=== PATIENT | female | born 1965 | race Caucasian/White ===

== ENCOUNTER 2019-06-30 11:07 | Emergency (ER) | payer OTHER, SELFPAY ==
[2019-06-30 11:18] VITALS: BP 126/93; PULSE 80; RESP 20; TEMP 36.4; O2SAT 99
--- NOTE | 2019-06-30 11:44 | ED.URI ---
HPI - URI/Sore Throat General Chief Complaint: Upper Respiratory Infection Stated Complaint: Cough Source: patient and RN notes reviewed Mode of arrival: ambulatory Limitations: no limitations History of Present Illness HPI Narrative: The patient, non-smoker/nondrinker, presents with nearly 1 week history of cough, myalgias, hoarseness associated with fever to 101. Symptoms are mild, unrelieved with OTC cough medicine. No foreign travel, sore throat, calf pain/edema, precordial chest pain Related Data Home Medications Medication Instructions Recorded Confirmed glucosamine sulfate 500 mg tablet 500 mg PO BID 03/19/19 06/30/19 lisinopril 20 1 tablet PO DAILY 03/19/19 06/30/19 mg-hydrochlorothiazide 12.5 mg tablet Allergies Allergy/AdvReac Type Severity Reaction Status Date / Time No Known Drug Allergies Allergy Unknown NONE Verified 03/19/19 14:50 Review of Systems Review of Systems: Narrative: General/Constitutional: No weight loss, REPORTS fever Eyes: N0: Redness,discharge Ears/Nose/Throat: No: Epistaxis,ear discharge Respiratory: Denies: Hemoptysis Gastrointestinal: No Vomiting, Bleeding-rectal Skin: No Lumps, eruption Neurologic: No Focal Weakness,Sz Hematologic: Denies: Petechiae/Purpura Psychiatric: No: Suicida ideationl All Other Systems: Reviewed and Negative [facility] Social History Social History Smoking status: Never smoker Second hand tobacco smoke exposure: No Alcohol intake: current Gender identity (if verbalized by the patient): Female Comments At time of signature, agree with nursing past medical, surgical, social and family history. There is no relevant family history pertinent to the presenting complaint Course Vital Signs Vital signs: Vital Signs Temperature 97.6 F 06/30/19 11:18 Pulse Rate 80 06/30/19 11:18 Respiratory Rate 20 06/30/19 11:18 Blood Pressure 126/93 H 06/30/19 11:18 Pulse Oximetry 99 06/30/19 11:18 Temperature 97.6 F 06/30/19 11:18 Pulse Rate 80 06/30/19 11:18 Respiratory Rate 20 06/30/19 11:18 Blood Pressure 126/93 H 06/30/19 11:18 Pulse Oximetry 99 03/14/20 11:18 Discharge Plan Discharge Clinical Impression: Upper respiratory infection Patient Disposition: Home, Self-Care Condition: Stable Instructions: Antibiotic Form, Acute Bronchitis (ED) Prescriptions: New benzonatate [Tessalon Perles] 100 mg capsule 100 mg PO TID Qty: 20 RF: 1 codeine-guaifenesin 10-100 mg/5 mL liquid 7.5 ml PO Q6H PRN (Reason: cough) Qty: 118 RF: 0 cefuroxime axetil 500 mg tablet 500 mg PO Q12H Qty: 14 RF: 0 albuterol sulfate [Ventolin HFA] 90 mcg/actuation HFA aerosol inhaler 2 puff INHALATION QID PRN (Reason: shortness of breath or wheezing) Qty: 1 RF: 1 codeine-guaifenesin 10-100 mg/5 mL liquid 7.5 ml PO Q6H PRN (Reason: cough) Qty: 118 RF: 0 No Action glucosamine sulfate [Glucosamine] 500 mg tablet 500 mg PO BID RF: 0 lisinopril-hydrochlorothiazide 20-12.5 mg tablet 1 tablet PO DAILY RF: 0 estradiol 1 mg tablet 1 mg PO DAILY Qty: 90 RF: 3 tramadol 50 mg tablet 50 mg PO Q6H PRN (Reason: pain) Qty: 60 RF: 0 Follow-up/Referrals: Yancy Lima MD [Primary Care Provider] -
== END 2019-06-30 11:47 | disposition home or self-care (01) ==
PROVIDERS: Emergency Provider Emergency Medicine; PCP Family Medicine
DX: J06.9 Acute upper respiratory infection, unspecified (principal); I10 Essential (primary) hypertension
CPT/HCPCS: 99213; G0463

== ENCOUNTER 2020-03-05 08:19 | Outpatient (NON) | payer OTHER, SELFPAY ==
[2020-03-05 23:47] LABS: SARS-CoV-2 RNA PCR Positive
== END 2020-03-05 08:20 ==
LOC: ANHCOVIDDT 08:20
PROVIDERS: PCP Family Medicine; Visit Provider Family Medicine
DX: U07.1 COVID-19 (principal)
CPT/HCPCS: 87635; C9803; U0003

== ENCOUNTER 2020-03-24 09:37 | Outpatient (CLI) | payer OTHER, SELFPAY ==
--- NOTE | ~2020-03-24 | MM_ITS ---
EXAMINATION: MM screening [facility] BI w liana HISTORY: Screening TECHNIQUE: Craniocaudal and mediolateral oblique 3-D tomosynthesis images were obtained and synthetic 2-D images were generated. CAD analysis was submitted and interpreted. COMPARISON: Comparison to multiple prior studies sequentially, with oldest reviewed study dated 08/25. BREAST PARENCHYMAL COMPOSITION: There are scattered areas of fibroglandular density. FINDINGS: There is no evidence of suspicious mass, calcification, or architectural distortion to sugg est malignancy in either breast. There has been no suspicious interval change. IMPRESSION: 1. No mammographic evidence of malignancy. 2. Recommend routine screening mammography in one year. BI-RADS Category 1: Negative Reviewed, dictated and finalized at location A. [employer]
== END 2020-03-24 09:38 | disposition home or self-care (01) ==
LOC: ANHIMG 09:38
PROVIDERS: PCP Family Medicine; Visit Provider Obstetrics & Gynecology
DX: Z12.31 Encounter for screening mammogram for malignant neoplasm of breast (principal)
CPT/HCPCS: 77063; 77067

== ENCOUNTER 2021-05-13 15:38 | Outpatient (CLI) | payer OTHER, SELFPAY ==
--- NOTE | ~2021-05-13 | MM_ITS ---
EXAMINATION: MM screening [facility] BI w liana HISTORY: Screening mammogram TECHNIQUE: Craniocaudal and mediolateral oblique 3-D tomosynthesis images were obtained and synthetic 2-D images were generated. CAD analysis was submitted and interpreted. COMPARISON: 03/24/2020, 06/30/2018, 05/20/2014, 10/22/2013, 10/15/2013 BREAST PARENCHYMAL COMPOSITION: There are scattered areas of fibroglandular density. FINDINGS: There is no evidence of suspicious mass, calcification, or architectural distortion to sugg est malignancy in either breast. There has been no suspicious interval change. IMPRESSION: 1. No mammographic evidence of malignancy. 2. Recommend routine screening mammography in one year. BI-RADS Category 1: Negative Reviewed, dictated and finalized at location A. GRINDER
== END 2021-05-13 15:39 | disposition home or self-care (01) ==
PROVIDERS: PCP Family Medicine; Visit Provider Obstetrics & Gynecology
DX: Z12.31 Encounter for screening mammogram for malignant neoplasm of breast (principal)
CPT/HCPCS: 77063; 77067

== ENCOUNTER 2022-06-19 15:30 | Emergency (ER) | payer OTHER, SELFPAY ==
[2022-06-19 15:37] VITALS: BP 109/53; PULSE 70; RESP 16; TEMP 36.1; O2SAT 99
--- NOTE | 2022-06-19 15:40 | ED.URI ---
HPI - URI/Sore Throat General Chief Complaint: Upper Respiratory Infection Stated Complaint: + covid test/congestion/cough Time Seen by Provider: 06/19/22 15:43 Source: patient and RN notes reviewed Mode of arrival: ambulatory Limitations: no limitations History of Present Illness HPI Narrative: 56-year-old female presents concern for increasing cough, sinus congestion, dias colored drainage after testing positive for COVID 1 week ago. She reports she has tried allergy medicine without relief, she can take much [id number] medicine due to her high blood pressure. She reports sick BS sputum that is dias in color. She reports fatigue. Reports she has not had fever, chills, sweats, body aches since the beginning of her illness. MD elicited complaint: cough and nasal congestion Related Data Home Medications Medication Instructions Recorded Confirmed glucosamine sulfate 500 mg tablet 1,000 mg PO DAILY 11/03/20 06/19/22 (Glucosamine) psyllium husk 0.4 gram capsule 0.4 g PO DAILY 11/03/20 12/15/21 (Daily Fiber) Allergies Allergy/AdvReac Type Severity Reaction Status Date / Time No Known Drug Allergies Allergy Unknown NONE Verified 06/19/22 15:39 Review of Systems Review of Systems: CONSTITUTIONAL: Denies malaise, chills, sweats, or fever. EYES: Denies visual changes, redness, or discharge. ENT: Reports rhinorrhea, congestion, sinus pain, and sore throat. CARDIOVASCULAR: Denies chest pain, palpitations, or edema. RESPIRATORY: Reports productive cough, chest congestion. Denies dyspnea. GASTROINTESTINAL: Denies abdominal pain, nausea, vomiting, diarrhea SKIN: Denies rash or itching. MUSCULOSKELETAL: Denies myalgia. NEUROLOGIC: Denies headache. All systems reviewed & are unremarkable except as noted in HPI and below PMFSH Past Medical History Medical History Atrophic vaginitis Uterine fibroid Surgical History Surgical History H/O vaginal hysterectomy History of carpal tunnel surgery History of cholecystectomy History of tubal ligation Previous section x 2 S/P eye surgery Family History Family History Father Hypertension Cerebrovascular accident Family history of diabetes mellitus in first degree relative Diabetes mellitus Mother Carcinoma of colon Family history of heart disease in male family member before age 55 Social History Social History Smoking status: Never smoker Second hand tobacco smoke exposure: No Alcohol intake: current Substance use: unknown Gender identity (if verbalized by the patient): Female Comments At time of signature, agree with nursing past medical, surgical, social and family history. There is no relevant family history pertinent to the presenting complaint Exam Narrative: GENERAL: Well-appearing, well-nourished, and in no acute distress. HEAD: Normocephalic EYES: PERRLA, conjunctivae clear ENT: Nares clear, turbinates edematous and erythematous, green discharge. Mucous membranes moist. TM pearly dias with dull light reflex bilaterally; no tragal tenderness. Oropharynx not erythematous without lesions. Tonsils not enlarged and without exudate, no drooling, no trismus, uvula midline. Slightly hoarse voice NECK: Supple. No lymphadenopathy CHEST: Clear to auscultation, breath sounds equal. No wheezing, rhonchi, rales, or stridor. No respiratory distress, speaks in full sentences. Cough noted HEART: Regular rate and rhythm. No murmur heard. SKIN: Warm, dry, no rash. NEURO: Alert and oriented x3. PSYCH: Normal mood and affect Course Course Emergency Course: Patient is aware of diagnosis, understands and agrees to treatment plan. Anticipatory guidance given. Patient agrees to follow-up as directed and is aware of reasons
== END 2022-06-19 15:55 | disposition home or self-care (01) ==
PROVIDERS: Emergency Provider Nurse Practitioner; PCP Emergency Medicine
DX: J32.9 Chronic sinusitis, unspecified (principal); J40 Bronchitis, not specified as acute or chronic; Z86.16 Personal history of COVID-19
CPT/HCPCS: 99213; G0463

== ENCOUNTER 2022-07-26 15:39 | Outpatient (CLI) | payer OTHER, SELFPAY ==
--- NOTE | ~2022-07-26 | MM_ITS ---
EXAMINATION: MM screening [facility] BI w liana HISTORY: Screening mammogram TECHNIQUE: Craniocaudal and mediolateral oblique 3-D tomosynthesis images were obtained and synthetic 2-D images were generated. CAD analysis was submitted and interpreted. COMPARISON: 05/13/2021, 03/24/2020, 06/30/2018 bilateral screening mammogram examinations BREAST PARENCHYMAL COMPOSITION: There are scattered areas of fibroglandular density. FINDINGS: There is no evidence of suspicious mass, calcification, or architectural distortion to sugg est malignancy in either breast. There has been no suspicious interval change. IMPRESSION: 1. No mammographic evidence of malignancy. 2. Recommend routine screening mammography in one year. BI-RADS Category 1: Negative Reviewed, dictated and finalized at location A.
== END 2022-07-26 15:40 | disposition home or self-care (01) ==
LOC: ANHIMG 15:41
PROVIDERS: PCP Emergency Medicine; Visit Provider Obstetrics & Gynecology
DX: Z12.31 Encounter for screening mammogram for malignant neoplasm of breast (principal)
CPT/HCPCS: 77063; 77067

== ENCOUNTER 2023-04-02 08:46 | Emergency (ER) | payer OTHER, SELFPAY ==
--- NOTE | 2023-04-02 08:49 | ED.URI ---
HPI - URI/Sore Throat General Chief Complaint: Upper Respiratory Infection Stated Complaint: Sinus Infection symptoms; Body aches Time Seen by Provider: 04/02/23 10:01 Source: patient, RN notes reviewed and old records reviewed Mode of arrival: ambulatory Limitations: no limitations History of Present Illness HPI Narrative: 57-year-old female presents to the [facility] with sinus pain, pressure that has been worsening over the last month. Denies fevers. Has tried multiple [id number] products with no relief. States about a week ago she started with coughing and feel like she is wheezing worse at night. Onset (ago): month(s) (1) Treatments prior to arrival: cold medicine Related Data Home Medications Medication Instructions Recorded Confirmed glucosamine sulfate 500 mg tablet 1,000 mg PO DAILY 11/03/20 04/02/23 (Glucosamine) psyllium husk 0.4 gram capsule 0.4 g PO DAILY 11/03/20 04/02/23 (Daily Fiber) Allergies Allergy/AdvReac Type Severity Reaction Status Date / Time No Known Drug Allergies Allergy Unknown NONE Verified 04/02/23 09:25 Review of Systems Review of Systems: All systems reviewed & are unremarkable except as noted in HPI and below Constitutional: Constitutional: Reports no additional constitutional complaints Eyes: Eyes: Reports no additional eye complaints ENT: Reports as per HPI, Reports otalgia, Reports nasal congestion, Reports sinus pain and Reports sinus pressure Cardiovascular: Cardiovascular: Reports no additional cardiovascular complaints, Denies chest pain and Denies dyspnea Respiratory: Respiratory: Reports no additional respiratory complaints, Denies chest congestion, Denies cough and Denies dyspnea Gastrointestinal: Gastrointestinal: Reports no additional gastrointestinal complaints, Denies abdominal pain, Denies nausea and Denies vomiting Musculoskeletal: Musculoskeletal: Reports no additional musculoskeletal complaints Integumentary/Breasts: Skin/Breast: Reports system reviewed and no additional complaints, except as docu Neurologic: Reports system reviewed and no additional complaints, except as documented Psychiatric: Psychiatric: Reports no additional psychiatric complaints Allergic/Immunologic: Allergic/Immunologic: Reports no additional allergic/immunologic complaints PMFSH Past Medical History Medical History Atrophic vaginitis Uterine fibroid Surgical History Surgical History H/O vaginal hysterectomy History of carpal tunnel surgery History of cholecystectomy History of tubal ligation Previous section x 2 S/P eye surgery Family History Family History Father Hypertension Cerebrovascular accident Family history of diabetes mellitus in first degree relative Diabetes mellitus Mother Carcinoma of colon Family history of heart disease in male family member before age 55 Social History Social History Smoking status: Never smoker Second hand tobacco smoke exposure: No Alcohol intake: current Substance use: unknown Lack of Transportation: No Lack of Food: Never True Current Housing: I Have Housing Concerned About Future Housing: No Difficulty Paying Gas/Electric Bills: No Difficulty Paying for Meds: No Currently Unemployed: No Education: High School Diploma/GED Difficulty w/ Childcare or Family Care: No Living arrangements: with family Occupation/Education: occupation Gender identity (if verbalized by the patient): Female Sexual Orientation (if Verbalized by the Patient): Straight or Heterosexual Spiritual care concerns: No Comments At the time of my signature, I reviewed and agree with the nursing past medical, surgical, social, and family history. There is no relevant family histor
[2023-04-02 09:32] VITALS: BP 126/77; PULSE 81; RESP 16; TEMP 36.8; O2SAT 99
== END 2023-04-02 10:23 | disposition home or self-care (01) ==
PROVIDERS: Emergency Provider Nurse Practitioner; PCP Nurse Practitioner Family
DX: J32.9 Chronic sinusitis, unspecified (principal); J40 Bronchitis, not specified as acute or chronic
CPT/HCPCS: 99213; G0463

== ENCOUNTER 2023-06-02 15:47 | Emergency (ER) | payer OTHER, SELFPAY ==
[2023-06-02 15:57] VITALS: BP 110/76; PULSE 101; RESP 16; TEMP 36.6; O2SAT 99
--- NOTE | 2023-06-02 16:02 | ED.GENADULT ---
HPI - General Adult General Chief complaint: Upper Respiratory Infection Stated complaint: COUGH/CONGESTION Source: patient, RN notes reviewed and old records reviewed Mode of arrival: ambulatory Limitations: no limitations History of Present Illness HPI narrative: 57-year-old female presents to [facility] with complaints of productive cough, congestion, postnasal drip this started over a week ago. Patient taking [id number] medications with no relief. Patient states is now coughing up blood-tinged sputum. Related Data Home Medications Medication Instructions Recorded Confirmed glucosamine sulfate 500 mg tablet 1,000 mg PO DAILY 11/03/20 06/02/23 (Glucosamine) psyllium husk 0.4 gram capsule 0.4 g PO DAILY 11/03/20 06/02/23 (Daily Fiber) Allergies Allergy/AdvReac Type Severity Reaction Status Date / Time No Known Drug Allergies Allergy Unknown NONE Verified 06/02/23 15:55 Review of Systems Constitutional: Constitutional: Reports no additional constitutional complaints, Denies body ache(s), Denies chills, Denies fatigue, Denies fever(s) and Denies headache(s) Eyes: Eyes: Reports no additional eye complaints and Denies blurry vision ENT: Reports system reviewed and no additional complaints, except as documented, Denies vertigo, Denies dizziness, Denies ear discharge, Denies otalgia, Denies facial pain, Denies headache(s), Reports nasal congestion, Reports nasal discharge, Reports post nasal drip, Denies sinus pain, Reports sinus pressure and Denies sore throat Cardiovascular: Cardiovascular: Reports no additional cardiovascular complaints, Denies chest pain, Denies chest pain at rest, Denies rapid heart rate and Denies dyspnea Respiratory: Respiratory: Reports no additional respiratory complaints, Reports chest congestion, Reports cough, Reports excessive phlegm production ( Blood tinged), Denies pain on inspiration, Denies pain with cough and Denies dyspnea Gastrointestinal: Gastrointestinal: Denies abdominal pain, Denies diarrhea, Denies nausea and Denies vomiting Integumentary/Breasts: Skin/Breast: Denies rash Neurologic: Reports system reviewed and no additional complaints, except as documented, Denies vertigo, Denies dizziness and Denies headache(s) Endocrine: Endocrine: Denies fatigue [facility] Past Medical History Medical History Atrophic vaginitis Uterine fibroid Surgical History Surgical History H/O vaginal hysterectomy History of carpal tunnel surgery History of cholecystectomy History of tubal ligation Previous section x 2 S/P eye surgery Family History Family History Father Hypertension Cerebrovascular accident Family history of diabetes mellitus in first degree relative Diabetes mellitus Mother Carcinoma of colon Family history of heart disease in male family member before age 55 Social History Social History Smoking status: Never smoker Second hand tobacco smoke exposure: No Alcohol intake: current Substance use: unknown Lack of Transportation: No Lack of Food: Never True Current Housing: I Have Housing Concerned About Future Housing: No Difficulty Paying Gas/Electric Bills: No Difficulty Paying for Meds: No Currently Unemployed: No Education: High School Diploma/GED Difficulty w/ Childcare or Family Care: No Living arrangements: with family Occupation/Education: occupation Gender identity (if verbalized by the patient): Female Sexual Orientation (if Verbalized by the Patient): Straight or Heterosexual Spiritual care concerns: No Comments At the time of my signature, I reviewed and agree with the nursing past medical, surgical, social, and family history. There is no relevant family history pertinent to
== END 2023-06-02 16:09 | disposition home or self-care (01) ==
PROVIDERS: Emergency Provider Registered Nurse; PCP Nurse Practitioner Family
DX: J20.9 Acute bronchitis, unspecified (principal)
CPT/HCPCS: 99213; G0463

== ENCOUNTER 2023-06-27 14:06 | Observation (INO) | payer OTHER, SELFPAY ==
[2023-06-27] VITALS (31 sets, daily range): BP systolic 117–141; BP diastolic 59–84; PULSE 60–88; RESP 14–23; TEMP 36.1–36.5; O2SAT 90–100; BMI 35.2
--- NOTE | ~2023-06-27 | XR_ITS ---
EXAMINATION: XR chest 2V DATE: 06/27/2023 15:01 INDICATION: Cough TECHNIQUE: PA and lateral views of the chest were obtained. COMPARISON: None FINDINGS: The lungs are clear with no focal airspace opacities, pulmonary edema, pleural effusion or pneumothor ax. The cardiomediastinal silhouette is normal. Moderate thoracic spondylosis. Cholecystectomy clips in right upper quadrant. IMPRESSION: 1. No acute cardiopulmonary disease. Reviewed, dictated and finalized at location B.
--- NOTE | ~2023-06-27 | US_ITS ---
EXAMINATION: US venous doppler [facility] DATE: 06/28/2023 15:39 INDICATION: Pulmonary embolism . TECHNIQUE: Grayscale images without and with compression and Doppler images of the bilateral lower ex tremity veins were obtained. COMPARISON: None FINDINGS: The right common femoral vein, profunda (deep) femoral vein, femoral vein, popliteal vein, peroneal v ein, posterior tibial veins, gastrocnemius vein, and greater saphenous vein are patent. The left common femoral vein, profunda (deep) femoral vein, femoral vein, popliteal vein, peroneal v ein, posterior tibial veins, gastrocnemius vein, and greater saphenous vein are patent. IMPRESSION: Patent bilateral lower extremity veins. No evidence of deep venous thrombosis. Reviewed, dictated and finalized at location K.
--- NOTE | ~2023-06-27 | CT_ITS ---
EXAMINATION: CTA chest PE protocol DATE: 06/27/2023 16:03 INDICATION: CP, SOB TECHNIQUE: Computed tomography angiography (CTA) of the chest was performed with 100 mL Omnipaque-350 intravenous contrast timed to evaluate the pulmonary arteries. Coronal maximum intensity projection 3D-reconstructions were created by the technologist. The dose-length product (DLP) was 684.71 mGy-cm. Automated exposure control and iterative reconstruction technique were employed. COMPARISON: None. FINDINGS: Lung parenchyma and airways: Clear. Pleura: Unremarkable. Thoracic inlet, axillae and chest wall: Unremarkable. Thoracic aorta: No significant dilation. No dissection. Minimal arch calcification. Mediastinum: Normal. Heart and pericardium: Normal. Coronary artery calcifications: Mild. Upper abdomen: No significant finding. Bones: No acute osseous finding. Pulmonary arteries: Study quality: Adequate. Small acute embolus in a subsegmental right upper lobe a rterial branch (axial image 92/270). IMPRESSION: Small acute embolus in a subsegmental right upper lobe arterial branch. Small clot burden. No CT evid ence of right heart strain. Otherwise, no acute process detected in the chest. Results reported telephonically to Dr. Kamara by Dr. Shelton at 4:17 PM on 06/27/2023. Reviewed, dictated and finalized at location K. IMPRESSION: Small acute embolus in a subsegmental right upper lobe arterial branch. Small c lot burden. No CT evidence of right heart strain. Otherwise, no acute process detected in the chest. Results reported telephonically to Dr. Kamara by Dr. Shelton at 4:17 PM on 06/16.
--- NOTE | 2023-06-27 14:22 | ECG_ITS ---
Measurements Intervals [place] Rate: 72 P: 58 CO: 137 QRS: 3 QRSD: 98 T: 13 QT: 378 QTc: 414 Interpretive Statements SINUS RHYTHM CONSIDER INFERIOR INFARCT, AGE INDETERMINATE ABNORMAL ECG NO PREVIOUS ECG AVAILABLE FOR COMPARISON Electronically Signed On 06-27-2023 15:04:48 CDT by Farhat Atwood D.O.
[2023-06-27 14:32] LABS: Basophils Percent Auto 0.6 % (0.2-1.2); Eosinophils Absolute Auto 0.2 K/mm3 (0-0.3); Eosinophils Percent Auto 2.9 % (0-4.4); Hematocrit 36.6 % (37.0-47.0); Hemoglobin 12.5 g/dL (12.0-15.0); Immature Granulocyte Absolute 0.01 K/mm3 (0.00-0.031); Immature Granulocyte Percent A 0.2 % (0-0.5); Lymphocytes Absolute Auto 1.67 K/mm3 (0.9-3.2); Lymphocytes Percent Auto 32.1 % (18.3-44.2); Mean Corpuscular HGB Conc 34.2 g/dl (32-36); Mean Corpuscular Hemoglobin 32.2 pg (26-34); Mean Corpuscular Volume 94.3 fl (80-100); Mean Platelet Volume 8.6 fl (7.4-10.4); Monocytes Absolute Auto 0.7 K/mm3 (0.1-0.6); Monocytes Percent Auto 12.9 % (2.6-8.5); Neutrophils Absolute Auto 2.7 K/mm3 (1.3-6.7); Neutrophils Percent Auto 51.3 % (45.5-73.1); Platelet Count Result 270 k/mm3 (150-375); Red Blood Count 3.88 M/mm3 (4.2-5.4); Red Cell Distribution Width 12.5 % (11.5-14.5); White Blood Count 5.2 K/mm3 (4.5-10.0)
[2023-06-27 14:40] LABS: Alanine Aminotransferase 18 U/L (6-35); Albumin Level 3.9 g/dL (3.5-5.1); Alkaline Phosphatase 77 U/L (38-126); Anion Gap 3 mmol/L (8-16); Aspartate Amino Transferase 26 U/L (14-36); Bilirubin,Total 0.3 mg/dL (0.2-1.3); Blood Urea Nitrogen 13 mg/dL (7-17); Calcium 8.8 mg/dL (8.4-10.2); Carbon Dioxide 27 mmol/L (22-30); Chloride 106 mmol/L (98-107); Estimated CRCL calculation 77 ml/min; Estimated Glomerular Filt Rate > 60; Glucose 103 mg/dL (65-110); Potassium 3.7 mmol/L (3.4-5.0); Sodium 136 mmol/L (137-145)
--- NOTE | 2023-06-27 15:37 | ED.GENADULT ---
HPI - General Adult General Chief complaint: Unspecified Stated complaint: dyspnea/URI Time Seen by Provider: 06/27/23 14:28 History of Present Illness HPI narrative: Patient is a 57-year-old female presenting with shortness of breath and chest pain. Patient states that she has been dealing with bronchitis as well as recurrent thrush over the last several months. States that she finished antibiotics and steroids about 2 weeks ago and her shortness of breath has improved but now she has chest pain. States that she has had it for about the last week, described as heaviness. Worse with exertion and lying down. Reports generalized malaise. states she has also been treated multiple times for thrush but she continues to have a very dry mouth and it is painful to swallow. No vomiting, abdominal pain, diarrhea, dysuria. No leg swelling. Related Data Home Medications Medication Instructions Recorded Confirmed glucosamine sulfate 500 mg tablet 1,000 mg PO DAILY 11/03/20 06/27/23 (Glucosamine) lisinopril 20 1 tablet PO DAILY 06/27/23 06/27/23 mg-hydrochlorothiazide 12.5 mg tablet topiramate 25 mg tablet 25 mg PO TID 06/27/23 06/27/23 Allergies Allergy/AdvReac Type Severity Reaction Status Date / Time No Known Drug Allergies Allergy Unknown NONE Verified 06/28/23 03:05 Review of Systems Review of Systems: All systems reviewed & are unremarkable except as noted in HPI and below PMFSH Past Medical History Medical History (Updated 07/05/23 @ 12:39 by Afsaneh Kamara MD) Atrophic vaginitis Benign essential hypertension Gastroesophageal reflux disease Hyperlipidemia Uterine fibroid Surgical History Surgical History (Updated 06/27/23 @ 22:13 by Tasneem Rodrigues PA-C) History of 2 sections History of carpal tunnel surgery History of cholecystectomy History of tubal ligation History of vaginal hysterectomy Family History Family History Father Hypertension Cerebrovascular accident Family history of diabetes mellitus in first degree relative Diabetes mellitus Mother Carcinoma of colon Family history of heart disease in male family member before age 55 Social History Social History (Updated 06/27/23 @ 22:14 by Tasneem Rodrigues PA-C) Social History: Surrogate medical decision maker: Nabeel Earl, spouse. Code status: Full code. Smoking status: Never smoker Second hand tobacco smoke exposure: No Alcohol intake: current Substance use: unknown Substance use type: does not use Do You Feel Safe in your Home?: Yes Lack of Transportation: No Lack of Food: Never True Current Housing: I Have Housing Concerned About Future Housing: No Difficulty Paying Gas/Electric Bills: No Difficulty Paying for Meds: No Currently Unemployed: No Education: High School Diploma/GED Difficulty w/ Childcare or Family Care: No Spiritual care concerns: No Exam Narrative: GENERAL: Nontoxic, no acute distress, pleasant cooperative HEAD: Normocephalic, atraumatic. EYES: PERRLA and EOMI. ENT: Mucous membranes tacky NECK: Supple. CHEST: Clear to auscultation. No respiratory distress. HEART: Regular rate and rhythm. ABDOMEN: Soft, nontender, nondistended EXTREMITIES: Normal range of motion. No edema. SKIN: Warm, dry, no rash. NEURO: No focal deficits. Alert and oriented x3. PSYCH: Normal mood and affect. Course Vital Signs Vital signs: Vital Signs Temperature 97.7 F 06/27/23 14:07 Pulse Rate 88 06/27/23 14:07 Respiratory Rate 17 06/27/23 14:07 Blood Pressure 141/84 H 06/27/23 14:07 Pulse Oximetry 100 06/27/23 14:07 Oxygen Delivery Room Air 06/27/23 14:07 Temperature 97.2 F L 06/29/23 06:00 Pulse Rate 75 06/29/23 12:00 Respiratory Rate 16 06/29/23 06:00 Blood Pressure 147/75 H 06/29/23 06:00 Pulse Oximetry 99 06/29/23 06:00 Oxygen Delivery Room Air
[2023-06-27] MEDS: KETOROLAC 30 MG/ML VIAL (*BKC) IV PUSH (15:50)
[2023-06-27] MEDS: SODIUM CHLORIDE 0.9% IV 1,000 ML 999 ML IV CONT ×2 (15:50)
[2023-06-27 16:50] LABS: Appearance Urine Clear (Clear); Bilirubin Urine Negative (Negative); Blood Urine Negative (Negative); Color Urine Yellow (Yellow); Glucose Urine UA Negative (Negative); Ketones Urine Negative (Negative); Leukocyte Esterase Ur Negative LEU/UL (Negative); Nitrate Urine Negative (Negative); Protein Urine Negative (Negative); Specific Grav Ur 1.029 (1.001-1.035); Urobilinogen Urine 0.2 mg/dL (<2.0)
[2023-06-27 17:13] LABS: Add Urine Microscopic? NO
[2023-06-27 17:19] LABS: Lipase 52 U/L (23-300); Magnesium 2.5 mg/dL (1.6-2.3)
[2023-06-27 17:24] LABS: INR 0.9; Prothrombin Time 12.6 Seconds (11.1-14.7)
[2023-06-27 17:25] LABS: Partial Thromboplastin Time 28.2 SECONDS (22.3-36.8)
[2023-06-27 17:32] LABS: NT Pro B Type Natriuretic Pept 134 pg/mL (19.9-100); Troponin I < 0.012 ng/mL (0.000-0.034)
[2023-06-27 18:06] LABS: Influenza A QL RT-PCR Negative (Negative); Influenza B QL RT-PCR Negative (Negative); RSV RNA, RT-PCR Negative (Negative); SARS-CoV-2 RNA PCR Negative (Negative)
--- NOTE | 2023-06-27 18:08 | ECG_ITS ---
Measurements Intervals [place] Rate: 61 P: 55 [place]: 139 QRS: 13 QRSD: 96 T: 26 QT: 429 QTc: 434 Interpretive Statements SINUS RHYTHM NORMAL ECG COMPARED TO ECG 06/27/2023 14:32:27 NO SIGNIFICANT CHANGES Electronically Signed On 06-27-2023 20:07:22 CDT by Farhat Atwood D.O.
[2023-06-27 19:07] LABS: Troponin I < 0.012 ng/mL (0.000-0.034)
--- NOTE | 2023-06-27 19:16 | PC.NURSE ---
Report received from ROSMERY Bennett . No distress noted.
[2023-06-27 21:21] LABS: Troponin I < 0.012 ng/mL (0.000-0.034)
--- NOTE | 2023-06-27 22:11 | PM.IMHP ---
H&P: HPI History of Present Illness Date/Time: 06/27/23 22:00 Chief Complaint: Shortness of breath and chest pain. Narrative: This is a 57-year-old female with hypertension, hyperlipidemia, and gastroesophageal reflux disease who presented to the emergency department for evaluation of shortness of breath and chest pain. The patient provides the following history. About 2 weeks ago she developed URI symptoms to include chest congestion and cough. She finished a course of antibiotics and steroids which improved her symptoms however she has since developed thrush and she is now having right-sided pleuritic pain in the right side of the back. She still has some mild shortness of breath which seems to be worse with exertion and lying supine. She denies fever, headache, exertional chest pain, palpitations, syncope, near syncope, paroxysmal nocturnal dyspnea, orthopnea, paroxysmal nocturnal dyspnea, edema, and calf pain. No personal or family history of venous thromboembolism. She denies recent travel. No history of malignancy. She has occasional left lower extremity edema but that has been an ongoing issue for many years. She was afebrile on arrival to the emergency department with stable vital signs. CMP and CBC were pretty unremarkable. She tested negative for influenza, RSV, and COVID. Chest CTA showed a small acute pulmonary embolus in a subsegmental right upper lobe arterial branch with a small clot burden and no evidence of right heart strain. No other acute process was detected. The patient did not feel comfortable going home on oral anticoagulation she is being admitted overnight for close monitoring. She has been started on rivaroxaban. Review of Systems Review of Systems: Twelve systems were reviewed and are negative except for as per HPI. [facility] Past Medical History Medical History (Updated 06/27/23 @ 22:15 by Tasneem Rodrigues PA-C) Atrophic vaginitis Benign essential hypertension Gastroesophageal reflux disease Hyperlipidemia Uterine fibroid Surgical History Surgical History (Updated 06/27/23 @ 22:13 by Tasneem Rodrigues PA-C) History of 2 sections History of carpal tunnel surgery History of cholecystectomy History of tubal ligation History of vaginal hysterectomy Family History Family History Father Hypertension Cerebrovascular accident Family history of diabetes mellitus in first degree relative Diabetes mellitus Mother Carcinoma of colon Family history of heart disease in male family member before age 55 Social History Social History (Updated 06/27/23 @ 22:14 by Tasneem Rodrigues PA-C) Social History: Surrogate medical decision maker: Nabeel Earl, spouse. Code status: Full code. Smoking status: Never smoker Second hand tobacco smoke exposure: No Alcohol intake: current Substance use: unknown Lack of Transportation: No Lack of Food: Never True Current Housing: I Have Housing Concerned About Future Housing: No Difficulty Paying Gas/Electric Bills: No Difficulty Paying for Meds: No Currently Unemployed: No Education: High School Diploma/GED Difficulty w/ Childcare or Family Care: No Spiritual care concerns: No Meds Home Medications and Allergies Home Medications Medication Instructions Recorded Confirmed Type glucosamine sulfate 500 mg tablet 1,000 mg PO DAILY 11/03/20 06/27/23 History (Glucosamine) omeprazole 40 mg capsule,delayed 40 mg PO DAILY #90 caps 08/24/22 06/27/23 Rx release estradiol 1 mg tablet 1 mg PO DAILY #90 tabs 12/13/22 06/27/23 Rx phentermine 37.5 mg tablet 37.5 mg PO DAILY #90 tabs 06/06/23 06/27/23 Rx amoxicillin 875 mg-potassium 1 tablet PO BID #20 tabs 06/20/23 06/27/23 Rx clavulanate 125 mg tablet fluoxetine 40 mg capsule 40 mg PO DAILY #90 caps 06/27/23 06/27/23 Rx lisinopril 20 1 tablet PO DAILY 06/27/23 06/27/23 History mg-hydrochlorothiazide 12.5 mg
[2023-06-28] VITALS (11 sets, daily range): BP systolic 102–139; BP diastolic 50–69; PULSE 66–83; RESP 14–24; TEMP 36–36.6; O2SAT 98–100
[2023-06-28] MEDS: TOPIRAMATE 25 MG TABLET PO ×4 (01:57→21:54)
[2023-06-28] MEDS: RIVAROXABAN 15 MG TABLET PO ×2 (01:58→17:08)
[2023-06-28 07:10] LABS: Hematocrit 36.5 % (37.0-47.0); Hemoglobin 11.7 g/dL (12.0-15.0); Mean Corpuscular HGB Conc 32.1 g/dl (32-36); Mean Corpuscular Hemoglobin 31.4 pg (26-34); Mean Corpuscular Volume 97.9 fl (80-100); Mean Platelet Volume 8.9 fl (7.4-10.4); Platelet Count Result 252 k/mm3 (150-375); Red Blood Count 3.73 M/mm3 (4.2-5.4); Red Cell Distribution Width 12.4 % (11.5-14.5)
[2023-06-28 07:24] LABS: Anion Gap 3 mmol/L (8-16); Blood Urea Nitrogen 11 mg/dL (7-17); Carbon Dioxide 26 mmol/L (22-30); Chloride 108 mmol/L (98-107); Estimated CRCL calculation 80 ml/min; Estimated Glomerular Filt Rate > 60; Glucose 87 mg/dL (65-110); Magnesium 2.4 mg/dL (1.6-2.3); Potassium 3.6 mmol/L (3.4-5.0); Sodium 137 mmol/L (137-145)
[2023-06-28] MEDS: hydroCHLOROthiazide 12.5 MG CAPSULE PO (09:09)
[2023-06-28] MEDS: PANTOPRAZOLE 40 MG TABLET PO ×2 (09:10→21:54)
[2023-06-28] MEDS: lisinopriL 20 MG TABLET PO (09:11)
[2023-06-28] MEDS: FLUoxetine HCL 20 MG CAPSULE 40 MG PO (09:11)
--- NOTE | 2023-06-28 11:08 | PC.NURSE ---
On 06/28/23, the EMERGENCY DOCTOR, Shavon Garcia LPN, provided care and completed [facility] documentation on this patient. I have reviewed the EMERGENCY DOCTOR's documentation and agree with the findings.
--- NOTE | 2023-06-28 16:08 | PM.IMPN ---
Progress Note: A&P Assessment and Plan (1) Right pulmonary embolus: Code(s): I26.99 - Other pulmonary embolism without acute cor pulmonale Status: Acute Assessment and Plan: CT of the chest showing small acute embolus in a subsegmental right upper lobe arterial arch, small clot burden, no CT evidence of right heart strain patient started on Xarelto currently on room air patient reports that she has been on estrogen based hormones for the last 3-4 years Which could have contributed to her PE. (2) Benign essential hypertension: Code(s): I10 - Essential (primary) hypertension Status: Acute Assessment and Plan: blood pressure ranging 102/50 to 117/59 continue hydrochlorothiazide and lisinopril (3) Headache: Code(s): R51.9 - Headache, unspecified Status: Acute Assessment and Plan: Tylenol ordered patient has reported a headache for the last for 5 days which has been unrelieved. Respiratory panel was negative Time Spent With Patient Time with patient: 25 - 35 minutes Subjective Date/time seen: 06/28/23 16:08 Interval history: this is a 57-year-old female who came in on with complaints of shortness of breath chest pain. Workup in the hospital includes a chest x-ray which was negative. Chest CT which shown a small acute embolus in a sub segmental right upper lobe arterial branch, small clot burden, no CT evidence of right heart strain. Venous Dopplers was negative for DVT. Initial labs show a white count of 4.0, RBC 3.73, hemoglobin 11.7, magnesium 2.4, troponins were negative. UA was negative for any bacteria. Respiratory panel was negative for influenza a and B, RSV, COVID. EKG showing sinus rhythm with a rate of 61. Patient was given 2 L of normal saline in the ED and started on Xarelto. On examination today patient is alert oriented x3, lying in the bed. Patient denies any fever, chills, nausea, vomiting, diarrhea, abdominal pain, shortness a breath. Patient endorses headache that she has had for about a week without much relief and slight chest pain with inspiration. As I talked with her she states that she has been on estrogen hormone for the past 3 or 4 years which could be related to her PE. She has had some congestion and shortness of breath leading up to her presentation. Review of Systems Review of Systems: All systems reviewed & are unremarkable except as noted in HPI and below Constitutional: Constitutional: Reports as per HPI and Reports no additional constitutional complaints Eyes: Eyes: Reports as per HPI and Reports no additional eye complaints ENT: Reports system reviewed and no additional complaints, except as documented and Reports as per HPI Cardiovascular: Cardiovascular: Reports as per HPI and Reports no additional cardiovascular complaints Respiratory: Respiratory: Reports as per HPI and Reports no additional respiratory complaints Gastrointestinal: Gastrointestinal: Reports as per HPI and Reports no additional gastrointestinal complaints Genitourinary: Genitourinary: Reports no additional female genitourinary complaints and Reports as per HPI Musculoskeletal: Musculoskeletal: Reports no additional musculoskeletal complaints and Reports as per HPI Integumentary/Breasts: Skin/Breast: Reports system reviewed and no additional complaints, except as docu and Reports as per HPI Neurologic: Reports system reviewed and no additional complaints, except as documented and Reports as per HPI Psychiatric: Psychiatric: Reports no additional psychiatric complaints and Reports as per HPI Exam Narrative: General: In no acute distress, well nourished Head: atraumatic, no encephalopathy Eyes: EOMI, PERRLA, sclera clear ENT: moist mucous membranes, nasal passages clear, reports headache Neck: supple, no JVD, no adenopathy, trachea midline Cardiac: Normal S1 and S2. RRR, No murmur, gallops or friction rubs, peripheral pulses i
[2023-06-28] MEDS: ACETAMINOPHEN 325 MG TABLET 650 MG PO (17:08)
[2023-06-29] VITALS: PULSE 78
[2023-06-29 04:00] VITALS: PULSE 60
[2023-06-29] MEDS: TOPIRAMATE 25 MG TABLET PO (05:38)
[2023-06-29 06:00] VITALS: BP 147/75; PULSE 64; RESP 16; TEMP 36.2; O2SAT 99
[2023-06-29 08:00] VITALS: PULSE 67
[2023-06-29] MEDS: FLUoxetine HCL 20 MG CAPSULE 40 MG PO (08:42)
[2023-06-29] MEDS: hydroCHLOROthiazide 12.5 MG CAPSULE PO (08:42)
[2023-06-29] MEDS: PANTOPRAZOLE 40 MG TABLET PO (08:43)
[2023-06-29] MEDS: lisinopriL 20 MG TABLET PO (08:43)
[2023-06-29] MEDS: RIVAROXABAN 15 MG TABLET PO (08:43)
[2023-06-29 09:18] LABS: Hematocrit 35.9 % (37.0-47.0); Hemoglobin 11.9 g/dL (12.0-15.0); Mean Corpuscular HGB Conc 33.1 g/dl (32-36); Mean Corpuscular Hemoglobin 31.8 pg (26-34); Mean Platelet Volume 8.9 fl (7.4-10.4); Platelet Count Result 267 k/mm3 (150-375); Red Blood Count 3.74 M/mm3 (4.2-5.4); Red Cell Distribution Width 12.6 % (11.5-14.5); White Blood Count 5.8 K/mm3 (4.5-10.0)
[2023-06-29 09:20] LABS: Anion Gap 4 mmol/L (8-16); Blood Urea Nitrogen 11 mg/dL (7-17); Calcium 8.5 mg/dL (8.4-10.2); Carbon Dioxide 24 mmol/L (22-30); Chloride 109 mmol/L (98-107); Estimated CRCL calculation 81 ml/min; Estimated Glomerular Filt Rate > 60; Glucose 108 mg/dL (65-110); Potassium 3.7 mmol/L (3.4-5.0); Sodium 137 mmol/L (137-145)
[2023-06-29 12:00] VITALS: PULSE 75
--- NOTE | 2023-06-29 13:24 | PM.DS ---
DS: Admitting Diagnosis Discharge Date 06/29/23 Admitting Diagnosis chest pain DS: Discharge Diagnosis Discharge Diagnosis (1) Right pulmonary embolus: Code(s): I26.99 - Other pulmonary embolism without acute cor pulmonale Status: Acute Assessment and Plan: CT of the chest showing small acute embolus in a subsegmental right upper lobe arterial arch, small clot burden, no CT evidence of right heart strain continue Xarelto 15 mg BIDWM for 21 days, then 20 mg daily thereafter room air patient reports that she has been on estrogen based hormones for the last 3-4 years Which could have contributed to her PE. Stopped until further follow up with Dr. Lundy. (2) Benign essential hypertension: Code(s): I10 - Essential (primary) hypertension Status: Chronic Assessment and Plan: continue hydrochlorothiazide and lisinopril (3) Headache: Code(s): R51.9 - Headache, unspecified Status: Resolved DS: Summary Hospital Course Hospital Course: Patient is a 57-year-old female admitted with complaints of shortness of breath chest pain. Workup in the hospital includes a chest x-ray which was negative. Chest CT which shown a small acute embolus in a sub segmental right upper lobe arterial branch, small clot burden, no CT evidence of right heart strain. Venous Dopplers negative for DVT. Initial labs show a white count of 4.0, RBC 3.73, hemoglobin 11.7, magnesium 2.4, troponins were negative. UA was negative for any bacteria. Respiratory panel was negative for influenza a and B, RSV, COVID. EKG showing sinus rhythm with a rate of 61. Patient was given 2 L of normal saline in the ED and started on Xarelto. She denies chest pain or SOB this morning. Her headache is gone. Her respiratory panel was negative. She is stable for d/c today. Discussed compliance with Xarelto to be continued at d/c. 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 She is to follow up with her primary. Status at Discharge Functional status at discharge: independent ambulation Overall status at discharge: patient is progressing back to baseline Time Spent with Patient Time attestation: Total time spent providing and/or coordinating discharge services: Exam Narrative: General: In no acute distress, well nourished Head: atraumatic, no encephalopathy Eyes: EOMI, PERRLA Neck: supple, no JVD, no adenopathy, trachea midline Cardiac: RRR, No murmur, gallops or friction rubs, peripheral pulses intact. Respiratory: Lungs clear to auscultation, no adventitious lung sounds, currently on room air Gastrointestinal: soft, non-distended, non-tender, normoactive bowel sounds. : voiding without difficulty. Extremities: moves all extremities well, no edema, good ROM, strength 5/5 Skin: clean, dry, intact. No wounds or lesions. Neuro: Alert and oriented x4, cranial nerves intact, no neuro deficits. Psych: normal mood, normal affect, interactive DS: Data Data Completed and Pending Labs on day of discharge: Labs from last 24 hours 06/29/23 08:56 WBC 5.8 RBC 3.74 L Hgb 11.9 L Hct 35.9 L MCV 96.0 MCH 31.8 MCHC 33.1 RDW 12.6 Plt Count 267 MPV 8.9 Sodium 137 Potassium 3.7 Chloride 109 H Carbon Dioxide 24 Anion Gap 4 L BUN 11 Creatinine 0.70 Estim Creat Clear Calc 81 Estimated GFR > 60 Glucose 108 Calcium 8.5 Discharge Plan Discharge Attending physician on discharge: Etta Rey Discharging Clinician: Iris Barroso Anticipated Discharge Date/Time: 06/29/23 11:02 Patient Disposition: Home, Self-Care Activity: as tolerated Diet: heart healthy Discharge Instructions: Follow up with your primary care physician in 1-2 weeks. Stop taking the phentermine until you have seen your primary. Take the Xarelto as directed. You will take 15 mg twice daily with food for a total of 21 days (20 more days) then you will take 20 mg daily with food thereafter. Sto
== END 2023-06-29 13:30 | disposition home or self-care (01) ==
LOC: ANHED 14:42 → ANH3MEDSUR 21:47
PROVIDERS: Emergency Medicine; Nurse Practitioner; Physician Assistant; Admitting Provider Student in an Organized Health Care Education/Training Program; Emergency Provider Emergency Medicine; PCP Nurse Practitioner Family; Visit Provider General Practice
DX: I26.99 Other pulmonary embolism without acute cor pulmonale (principal); I10 Essential (primary) hypertension; R51.9 Headache, unspecified; R94.31 Abnormal electrocardiogram [ECG] [EKG]; Z20.822 Contact with and (suspected) exposure to COVID-19; E78.5 Hyperlipidemia, unspecified; K21.9 Gastro-esophageal reflux disease without esophagitis; F10.90 Alcohol use, unspecified, uncomplicated; Z79.2 Long term (current) use of antibiotics; Z79.890 Hormone replacement therapy; Z79.899 Other long term (current) drug therapy; Z82.49 Family history of ischemic heart disease and other diseases of the circulatory system
CPT/HCPCS: 36415; 71046; 71275; 80048; 80053; 81003; 83690; 83735; 83880; 84484; 85025; 85027; 85610; 85730; 87637; 93005; 93970; 96361; 96374; 99285; A9270; G0378; J1885; J7030; Q9967

== ENCOUNTER 2023-07-12 09:28 | Outpatient (CLI) | payer OTHER, SELFPAY ==
[2023-07-15 11:55] LABS: SS-A <1.0; SS-B <1.0
[2023-07-16 11:35] LABS: von Willebrand Factor Ag 123 % (50-217)
[2023-07-18 17:07] LABS: Anti Nuclear Antibody Pattern Mitotic, NuMA-like; Anti Nuclear Antibody Titer 1:40 (Negative)
[2023-07-19 14:06] LABS: Factor V (Leiden) Mutation NEGATIVE
== END 2023-07-12 09:29 | disposition home or self-care (01) ==
PROVIDERS: PCP Nurse Practitioner Family; Visit Provider Nurse Practitioner Family
DX: I26.99 Other pulmonary embolism without acute cor pulmonale (principal); I10 Essential (primary) hypertension; B37.0 Candidal stomatitis; M25.50 Pain in unspecified joint
CPT/HCPCS: 36415; 81241; 83520; 85246; 86038; 86039; 86235

== ENCOUNTER 2023-08-18 09:08 | Outpatient (CLI) | payer OTHER, SELFPAY ==
--- NOTE | ~2023-08-18 | MM_ITS ---
EXAMINATION: MM screening delmy BI w liana HISTORY: Screening mammogram TECHNIQUE: Craniocaudal and mediolateral oblique 3-D tomosynthesis images were obtained and synthetic 2-D images were generated. CAD analysis was submitted and interpreted. COMPARISON: July 26, 2022, May 13, 2021 bilateral screening mammogram examinations BREAST PARENCHYMAL COMPOSITION: There are scattered areas of fibroglandular density. FINDINGS: There is no evidence of suspicious mass, calcification, or architectural distortion to sugg est malignancy in either breast. There has been no suspicious interval change. IMPRESSION: 1. No mammographic evidence of malignancy. 2. Recommend routine screening mammography in one year. BI-RADS Category 1: Negative Reviewed, dictated and finalized at location A.
== END 2023-08-18 09:09 | disposition home or self-care (01) ==
PROVIDERS: PCP Nurse Practitioner Family; Visit Provider Obstetrics & Gynecology
DX: Z12.31 Encounter for screening mammogram for malignant neoplasm of breast (principal)
CPT/HCPCS: 77063; 77067

== ENCOUNTER 2023-12-11 04:00 | Emergency (ER) | payer OTHER, SELFPAY ==
--- NOTE | ~2023-12-11 | US_ITS ---
EXAMINATION: US venous doppler LE RT DATE: 12/11/2023 09:22 INDICATION: Right lower limb swelling. TECHNIQUE: Grayscale ultrasound images without and with compression and Doppler ultrasound images of the right lower extremity veins were obtained. COMPARISON: Ultrasound 06/28/2023 FINDINGS: The visualized portions of right common femoral vein, profunda (deep) femoral vein, femoral vein, pop liteal vein, peroneal veins, posterior tibial veins, and greater saphenous vein outflow are patent. IMPRESSION: 1. No deep venous thrombosis. Reviewed, dictated and finalized at location A.
[2023-12-11 04:13] VITALS: BP 144/76; PULSE 85; RESP 20; TEMP 36.6; O2SAT 100
[2023-12-11 07:24] VITALS: BP 133/73; PULSE 60; RESP 17; TEMP 36.6; O2SAT 100
--- NOTE | 2023-12-11 08:28 | ED.EXTPRO ---
HPI - Extremity Problem General Chief complaint: Extremity Problem,Nontraumatic Stated complaint: Right leg pain/swelling, hx of clots Time Seen by Provider: 12/11/23 07:04 History of Present Illness HPI Narrative: 58-year-old female with a history of PE on Xarelto presenting with right leg swelling. States that over the last few days her right leg has been sore and painful to walk on. States that is most painful behind her upper calf and into her thigh. No chest pain or shortness of breath. She is compliant with her Xarelto. Reports swelling to both legs. No fevers. No further complaints. Related Data Home Medications Medication Instructions Recorded Confirmed glucosamine sulfate 500 mg tablet 1,000 mg PO DAILY 11/03/20 07/12/23 (Glucosamine) topiramate 25 mg tablet 25 mg PO TID 06/27/23 07/12/23 Allergies Allergy/AdvReac Type Severity Reaction Status Date / Time No Known Drug Allergies Allergy Unknown NONE Verified 12/11/23 04:16 Review of Systems Review of Systems: All systems reviewed & are unremarkable except as noted in HPI and below PMFSH Past Medical History Medical History Atrophic vaginitis Benign essential hypertension Gastroesophageal reflux disease Hyperlipidemia Uterine fibroid Surgical History Surgical History History of 2 sections History of carpal tunnel surgery History of cholecystectomy History of tubal ligation History of vaginal hysterectomy Family History Family History Father Hypertension Cerebrovascular accident Family history of diabetes mellitus in first degree relative Diabetes mellitus Mother Carcinoma of colon Family history of heart disease in male family member before age 55 Social History Social History Social History: Surrogate medical decision maker: Nabeel Earl, spouse. Code status: Full code. Smoking status: Never smoker Second hand tobacco smoke exposure: No Alcohol intake: current Substance use: unknown Substance use type: does not use Do You Feel Safe in your Home?: Yes Lack of Transportation: No Lack of Food: Never True Current Housing: I Have Housing Concerned About Future Housing: No Difficulty Paying Gas/Electric Bills: No Difficulty Paying for Meds: No Currently Unemployed: No Education: High School Diploma/GED Difficulty w/ Childcare or Family Care: No Spiritual care concerns: No Exam Narrative: GENERAL: Well-appearing, in no acute distress, very pleasant and cooperative HEAD: Normocephalic, atraumatic. EYES: PERRLA and EOMI. ENT: Nares clear, no rhinorrhea or epistaxis. Mucous membranes moist. NECK: Supple. CHEST: No respiratory distress. HEART: Regular rate and rhythm. Normal peripheral pulses. ABDOMEN: Soft, nontender, nondistended EXTREMITIES: Normal range of motion. +mild nonpitting edema bilaterally; posterior R calf is tender with palpation into proximal thigh; compartments are soft, distal pulses are 2+ SKIN: Warm, dry, no rash. NEURO: No focal deficits. Alert and oriented x3. PSYCH: Normal mood and affect. Course Vital Signs Vital signs: Vital Signs Temperature 97.9 F 12/11/23 04:13 Pulse Rate 85 12/11/23 04:13 Respiratory Rate 20 12/11/23 04:13 Blood Pressure 144/76 H 12/11/23 04:13 Pulse Oximetry 100 12/11/23 04:13 Oxygen Delivery Room Air 12/11/23 04:13 Temperature 97.9 F 12/11/23 07:24 Pulse Rate 60 12/11/23 07:24 Respiratory Rate 17 12/11/23 07:24 Blood Pressure 133/73 12/11/23 07:24 Pulse Oximetry 100 12/11/23 07:24 Oxygen Delivery Room Air 12/11/23 04:13 MDM - Extremity (Nontraumatic) MDM Narrative Medical decision making narrative: 58-year-old female presenting with
[2023-12-11 09:09] LABS: Basophils Absolute Auto 0.1 K/mm3 (0.0-0.1); Basophils Percent Auto 1.4 % (0.2-1.2); Eosinophils Absolute Auto 0.1 K/mm3 (0-0.3); Hemoglobin 11.5 g/dL (12.0-15.0); Immature Granulocyte Absolute 0.01 K/mm3 (0.00-0.031); Immature Granulocyte Percent A 0.2 % (0-0.5); Lymphocytes Absolute Auto 1.31 K/mm3 (0.9-3.2); Mean Corpuscular HGB Conc 32.9 g/dl (32-36); Mean Corpuscular Hemoglobin 31.4 pg (26-34); Mean Corpuscular Volume 95.6 fl (80-100); Mean Platelet Volume 8.6 fl (7.4-10.4); Monocytes Absolute Auto 0.7 K/mm3 (0.1-0.6); Monocytes Percent Auto 15.8 % (2.6-8.5); Neutrophils Absolute Auto 2.2 K/mm3 (1.3-6.7); Neutrophils Percent Auto 49.6 % (45.5-73.1); Platelet Count Result 281 k/mm3 (150-375); Red Blood Count 3.66 M/mm3 (4.2-5.4); Red Cell Distribution Width 12.6 % (11.5-14.5); White Blood Count 4.4 K/mm3 (4.5-10.0)
[2023-12-11] MEDS: SODIUM CHLORIDE 0.9% IV 1,000 ML 999 ML IV CONT (09:12)
[2023-12-11] MEDS: KETOROLAC 15 MG/ML VIAL (*BKC) IV PUSH (09:12)
[2023-12-11 09:18] LABS: Alanine Aminotransferase 20 U/L (6-35); Albumin Level 3.7 g/dL (3.5-5.1); Alkaline Phosphatase 72 U/L (38-126); Anion Gap 7 mmol/L (4-12); Aspartate Amino Transferase 30 U/L (14-36); Bilirubin,Total 0.1 mg/dL (0.2-1.3); Blood Urea Nitrogen 15 mg/dL (7-17); Calcium 8.7 mg/dL (8.4-10.2); Carbon Dioxide 29 mmol/L (22-30); Chloride 100 mmol/L (98-107); Estimated CRCL calculation 69 ml/min; Estimated Glomerular Filt Rate > 60; Glucose 97 mg/dL (65-110); Potassium 3.7 mmol/L (3.4-5.0); Sodium 136 mmol/L (137-145)
[2023-12-11 09:34] LABS: INR 1.4; Prothrombin Time 17.6 Seconds (11.1-14.7)
[2023-12-11 09:35] LABS: Partial Thromboplastin Time 35.3 Seconds (22.3-36.8)
[2023-12-11] MEDS: CYCLOBENZAPRINE HCL 10 MG TABLET PO (10:35)
[2023-12-11 10:38] VITALS: BP 117/72; PULSE 63; RESP 20; O2SAT 100
== END 2023-12-11 10:46 | disposition home or self-care (01) ==
PROVIDERS: Emergency Provider Emergency Medicine; PCP Nurse Practitioner Family
DX: M79.604 Pain in right leg (principal); M79.89 Other specified soft tissue disorders; I10 Essential (primary) hypertension; K21.9 Gastro-esophageal reflux disease without esophagitis; E78.5 Hyperlipidemia, unspecified
CPT/HCPCS: 36415; 80053; 85025; 85610; 85730; 93971; 96361; 96374; 99284; A9270; J1885; J7030

== ENCOUNTER 2023-12-12 16:06 | Outpatient (CLI) | payer OTHER, SELFPAY ==
--- NOTE | ~2023-12-12 | XR_ITS ---
EXAMINATION: XR lumbar spine 2-3V DATE: 12/12/2023 16:35 INDICATION: Unspecified osteoarthritis, unspecified site. TECHNIQUE: 3 views of lumbar spine were obtained. COMPARISON: None. FINDINGS: There is 3 mm retrolisthesis of L1 on L2. There is mild chronic anterior wedging of T12 and L1 vertebral bodies. There is mildly decreased disc height at T12-L1, L1-L2, L3-L4, L4-L5, and L5-S1 . There is multilevel facet joint osteoarthritis, severe in lower lumbar spine. Surgical clips in the right upper quadrant are likely from cholecystectomy. IMPRESSION: 1. Mild lumbar spondylosis. Reviewed, dictated and finalized at location A. IMPRESSION: 1. Mild lumbar spondylosis.
--- NOTE | ~2023-12-12 | XR_ITS ---
EXAMINATION: XR_CERV2-3V_CR DATE: 12/12/2023 16:35 INDICATION: Unspecified osteoarthritis, unspecified site. TECHNIQUE: 3 views of cervical spine were obtained. COMPARISON: None. FINDINGS: Alignment is normal. Vertebral body heights are normal. Intervertebral disc heights are nor mal. There is multilevel moderate to severe facet joint osteoarthritis. There is mild central canal s tenosis at C4-C5. No prevertebral soft tissue swelling. IMPRESSION: 1. Mild cervical spondylosis. Reviewed, dictated and finalized at location A.
== END 2023-12-12 16:07 ==
LOC: MICIMG 16:13
PROVIDERS: Visit Provider Nurse Practitioner Family
DX: M47.896 Other spondylosis, lumbar region (principal); M47.892 Other spondylosis, cervical region
CPT/HCPCS: 72040; 72100

== ENCOUNTER 2023-12-22 07:29 | Outpatient (CLI) | payer OTHER, SELFPAY ==
--- NOTE | ~2023-12-22 | MR_ITS ---
MRI of the lumbar spine Clinical History: Osteoarthritis Technique: Axial T2-weighted images, and sagittal T1-weighted, T2-weighted, and and T2 fat-sat images were acquired. Findings: There is no fracture or sublocation of the lumbar spine. Vertebral bodies maintain normal h eight and alignment. No bone marrow signal abnormality seen. At L1-L2, there is moderate to advanced degenerative disc 9, without significant disc bulge or hernia tion. There is moderate to advanced facet arthropathy. No central canal stenosis or neural foraminal narrowing. At L2-L3, there is minimal degenerative disc narrowing. No significant disc bulge or herniation. Ther e is moderate to advanced facet arthropathy. No central canal stenosis or neural foraminal narrowing. L3-L4, there is moderate degenerative disc narrowing. There is moderate to advanced facet arthropathy . No central canal stenosis. There is probable minimal bilateral neural foraminal narrowing. At L4-L5, there is diffuse disc bulge with advanced facet arthropathy. There is no katarina central enrico l stenosis. There is moderate right neural foraminal narrowing, and moderate to advanced left neural foraminal narrowing. At L5-S1, there is mild disc bulge with severe facet arthropathy. No katarina central canal stenosis. Th ere is moderate to advanced left neural foraminal narrowing, and mild right neural foraminal narrowin g. Paravertebral soft tissues are unremarkable. Impression: Moderate degenerative spondylosis overall, as detailed above. Reviewed, dictated and finalized at [facility]. Impression: Moderate degenerative spondylosis overall, as detailed above.
--- NOTE | ~2023-12-22 | MR_ITS ---
MRI of the cervical spine Clinical History: Osteoarthritis Technique: Axial T2-weighted and gradient images, and sagittal T1-weighted, T2-weighted, and STIR namita ges were acquired. Findings: There is minimal reversal of the normal cervical lordosis. No fracture or sublocation seen. No bone marrow signal abnormality seen. At C2-C3, there is no disc bulge or herniation. No spinal canal stenosis, cord compression, or defini te neural foraminal narrowing. There is mild facet arthropathy, right worse than left. At C3-C4, there is no disc bulge or herniation. There is no katarina canal stenosis or cord compression. There is left neural foraminal narrowing with probable left facet arthropathy. Right neural foramen probably preserved. At C4-C5, there is disc osteophyte complex with mild to moderate canal stenosis and minimal flattenin g the ventral cord. There is bilateral neural foraminal narrowing with bilateral facet arthropathy. At C5-C6, there is mild canal stenosis without katarina cord compression. No disc bulge or herniation. T here is right neural foraminal narrowing with probable right facet arthropathy. Left neural foramen p reserved. At C6-C7, there is minimal disc bulge without katarina canal stenosis or cord compression. Bilateral seun ral foramina are preserved. No abnormal signal seen in the spinal cord. Paravertebral soft tissues are unremarkable. Impression: Moderate degenerative spondylosis, worst at C4-C5. Please see details above. Reviewed, dictated and finalized at [facility]. Impression: Moderate degenerative spondylosis, worst at C4-C5. Please see details above.
== END 2023-12-22 07:30 | disposition home or self-care (01) ==
LOC: MICIMG 07:30
PROVIDERS: PCP Nurse Practitioner Family; Visit Provider Nurse Practitioner Family
DX: M19.90 Unspecified osteoarthritis, unspecified site (principal); M47.22 Other spondylosis with radiculopathy, cervical region; M47.27 Other spondylosis with radiculopathy, lumbosacral region
CPT/HCPCS: 72141; 72148

== ENCOUNTER 2024-07-03 11:13 | Outpatient (CLI) | payer OTHER, SELFPAY ==
--- NOTE | ~2024-07-03 | US_ITS ---
EXAMINATION: US venous doppler [facility] DATE: 07/03/2024 11:59 INDICATION: Bilateral lower limb pain. Varicose veins. TECHNIQUE: Grayscale ultrasound images without and with compression and Doppler ultrasound images of the bilateral lower extremity veins were obtained. COMPARISON: None. FINDINGS: The visualized portions of right common femoral vein, profunda (deep) femoral vein, femoral vein, pop liteal vein, posterior tibial veins, peroneal veins and proximal to mid greater saphenous vein are pa tent. The visualized portions of left common femoral vein, profunda femoral vein, femoral vein, popliteal v ein, posterior tibial veins, peroneal veins and proximal to mid greater saphenous vein are patent. IMPRESSION: 1. No deep venous thrombosis in either lower limb. Reviewed, dictated and finalized at location A.
--- OUTSIDE RECORDS SUMMARY | 2024-07-03 12:51 | XMS_ITS | Referral Summary ---
Author Organization [facility] Address [address] [place] [address] Care Team Providers Care Director Product Safety Name Role Phone Jeana Crespo NP Primary Care Provider [phone] Encounters Date Type Department Care Team Description 06/15/2024 11:40 AM MENTAL HEALTH ASSISTANT Office Visit [facility] ENT [address] [place] [address] Office [facility] [address] [address] Boom Franklin MD Nasal obstruction (Primary Dx); Nasal valve collapse; History of melanoma 06/01/2024 10:00 AM MENTAL HEALTH ASSISTANT Office Visit [facility] ENT [address] [place] [address] [address] [address] Boom Franklin MD 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); Nasal valve collapse; Nasal obstruction 05/24/2024 12:30 PM MENTAL HEALTH ASSISTANT - 05/24/2024 2:45 PM MENTAL HEALTH ASSISTANT Surgery [facility] Operating Room [address] [place] [address] Boom Franklin MD TRANSFER ADJACENT TISSUE - FACE 05/24/2024 12:01 PM MENTAL HEALTH ASSISTANT Anesthesia Event [facility] Operating Room [address] [place] [address] Bruce Whipple MD Helsten, Daniel Luke, MD 05/24/2024 10:42 AM MENTAL HEALTH ASSISTANT - 05/24/2024 3:23 PM MENTAL HEALTH ASSISTANT Hospital Encounter [facility] Operating Room [address] [facility] [place] [address] Boom Franklin MD Planned postoperative wound closure [Z48.1] (Primary Dx); 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]; Nasal valve collapse [J34.829] Discharge Disposition: Discharge to home or self care 05/11/2024 9:40 AM MENTAL HEALTH ASSISTANT Office Visit [facility] ENT [address] [facility] Medical Office Building [address] [place] [address] Boom Franklin MD 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); Encounter for planned post-operative wound closure; Nasal valve collapse; Nasal obstruction 05/03/2024 9:45 AM MENTAL HEALTH ASSISTANT - 05/03/2024 12:00 PM MENTAL HEALTH ASSISTANT Surgery [facility] Operating Room [address] [facility] [place] [address] Boom Franklin MD TRANSFER ADJACENT TISSUE - FACE 05/03/2024 9:27 AM MENTAL HEALTH ASSISTANT Anesthesia Event [facility] Operating Room [address] [facility] [place] [address] [facility] 05/03/2024 7:40 AM MENTAL HEALTH ASSISTANT - 05/03/2024 12:25 PM MENTAL HEALTH ASSISTANT Hospital Encounter [facility] Operating Room [address] [facility] [place] [address] Boom Franklin MD Melanoma of nose (HCC) [C43.31] (Primary Dx); Planned postoperative wound closure [Z48.1]; Nasal valve collapse [J34.829] Discharge Disposition: Discharge to home or self care 04/30/2024 Orders Only [facility]OS[facility] [address] [place] [address] Paige Brower MD Melanoma in situ of nose (HCC) 04/26/2024 1:30 PM MENTAL HEALTH ASSISTANT Procedure visit [facility] Dermatology [address] [facility] [address] [place] [id number] Paige Brower MD 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) from Last 3 Months Allergies No known active allergies Medications aspirin (Adult Low Dose Aspirin) 81 mg enteric coated tabletIndicatio ns:prevention of thrombosis,PE early 2023 Take 1 tablet (81 mg total) by mouth nightly Active caffeine 200 mg tabletIndicatio ns:Drowsy Take 1 tablet (200 mg total) by mouth fitness coordinator before breakfast Active collagen, hydrolysate, bovine, (collagen, hydr, bovine,, bulk,) 100 % powderIndicatio ns:health Take 1 Scoop by mouth fitness coordinator before breakfast Active Cymbalta 60 mg capsuleIndicati ons:Anxiety with Depression Take 1 capsule (60 mg total) by mouth fitness coordinator before breakfast Active FLUoxetine (PROzac) 20 mg capsuleIndicati ons:depression Take 1 capsule (20 mg total) by mouth fitness coordinator before breakfast Active glucosamine/cho ndr amaral A sod (glucosamine-ch ondroitin) 1,500-1,200 mg/30 mL liquidIndicatio ns:health Take 2 tablets by mouth fitness coordinator before breakfast Active hydroxychloroqu ine (PLAQUENIL) 200 mg tabletIndicatio ns:Rheumatoid Arthritis Take 1 tablet (200 mg total) by mouth 2 (two) times a day Active lisinopril-hydr oCHLOROthiazide (ZESTORETIC) 20-12.5 mg per tabletIndicatio ns:hypertension Take 1 tablet by mouth fitness coordinator before breakfast 4 Active xr-rk-lnbb-FA-C a carb-vit K (Women's Multivitamin) 18 mg-400 mcg- 500 mg-50 mcg tabletIndicatio ns:Mineral Deficiency Prevention,Katie min Deficiency Prevention Take 1 tablet by mouth fitness coordinator before breakfast Active omeprazole (PriLOSEC) 40 mg capsuleIndicati ons:Stress Ulcer Prophylaxis,Jordon atment of Non-Bleeding Gastric Disorder Take 1 capsule (40 mg total) by mouth fitness coordinator before breakfast Active phentermine (ADIPEX-P) 37.5 mg tabletIndicatio ns:Weight Loss Management for Obese Patient (BMI >= 30) Take 1 tablet (37.5 mg total) by mouth daily before breakfast Active topiramate (TOPAMAX) 50 mg tabletIndicatio ns:Binge Eating Disorder,pain Take 1 tablet (50 mg total) by mouth 2 (two) times a day Active soy isofla-blk cohosh-mag bark (Estroven) 155 mg capsuleIndicati ons:For supplement Take 2 capsules by mouth every morning Active HYDROcodone-polly taminophen (NORCO) 5-325 mg per tabletIndicatio ns:Pain Take 1 tablet by mouth every 6 (six) hours as needed for pain for up to 10 doses 10 tablet Active Active Problems Problem Noted Date Diagnosed Date Basal cell carcinoma of nose 05/11/2024 Malignant melanoma of skin of nose 05/11/2024 Nasal valve collapse 05/03/2024 Melanoma of nose 04/13/2024 Planned postoperative wound closure 04/13/2024 Social History Tobacco Use Types Packs/Day Years Used Date Smoking Tobacco: Never Smokeless Tobacco: Never Tobacco Cessation:Counseling Given: Not Answered AUDIT-C Answer Date Recorded Q1: How often do you have a drink containing alcohol? Never 05/24/2024 Q2: How many drinks containi ng alcohol do you have on a typical day when you are drinking? Patient does not drink Q3: How often do you have si x or more drinks on one occasion? Never 05/24/2024 Personal Safety Answer Date Recorded Have you ever been in or are you currently in a harmful physical or emotional relationship or is someone making you feel afraid or unsafe? Denies 05/24/2024 Comments No Sex and Gender Information Value Date Recorded Sex Assigned at Not on file Legal Sex Female 11:29 AM CDT Gender Identity Not on file Sexual Orientation Not on file Last Filed Vital Signs Vital Sign Reading Time Taken Comments Blood Pressure 115/56 05/24/2024 3:00 PM MENTAL HEALTH ASSISTANT Pulse 80 05/24/2024 3:10 PM MENTAL HEALTH ASSISTANT Temperature 36.2 C (97.2 F) 05/24/2024 2:15 PM MENTAL HEALTH ASSISTANT Respiratory Rate 12 05/24/2024 3:10 PM MENTAL HEALTH ASSISTANT Oxygen Saturation 94% 05/24/2024 3:10 PM MENTAL HEALTH ASSISTANT Inhaled Oxygen Concentration - - Weight 85.9 kg (189 lb 4.8 oz) 05/24/2024 10:51 AM MENTAL HEALTH ASSISTANT Height 157.5 cm (5' 2 ) 05/24/2024 10:51 AM MENTAL HEALTH ASSISTANT Body Mass Index 34.62 05/24/2024 10:51 AM MENTAL HEALTH ASSISTANT Plan of Treatment Not on file Procedures Procedure Name Priority Date/Time Associated Diagnosis Comments OR AN PROCEDURE PLACEHOLDER Routine 05/24/2024 12:22 PM MENTAL HEALTH ASSISTANT OR AN ELECTIVE ENDOTRACHEAL AIRWAY Routine 05/24/2024 12:22 PM MENTAL HEALTH ASSISTANT DIVISION FOREHEAD FLAP 12:05 PM MENTAL HEALTH ASSISTANT Malignant melanoma of skin of nose (HCC) Planned postoperative wound closure RECONSTRUCTION FACE 05/24/2024 1 2:05 PM MENTAL HEALTH ASSISTANT Malignant melanoma of skin of nose (HCC) Planned postoperative wound closure TRANSFER ADJACENT TISSUE - FACE 05/24/2024 12:05 PM MENTAL HEALTH ASSISTANT Malignant melanoma of skin of nose (HCC) Planned postoperative wound closure POC ISTAT Routine 05/24/2024 11:14 AM MENTAL HEALTH ASSISTANT OR AN PROCEDURE PLACEHOLDER Routine 05/03/2024 9:45 AM MENTAL HEALTH ASSISTANT OR AN ELECTIVE ENDOTRACHEAL AIRWAY Routine 05/03/2024 9:45 AM MENTAL HEALTH ASSISTANT REPAIR NASAL VALVE. 05/03/2024 9 :32 AM MENTAL HEALTH ASSISTANT Melanoma of nose (HCC) Planned postoperative wound closure MELOLABIAL FLAP 05/03/2024 9:32 AM MENTAL HEALTH ASSISTANT Melanoma of nose (HCC) Planned postoperative wound closure REPAIR MOHS 05/03/2024 9:32 AM MENTAL HEALTH ASSISTANT Melanoma of nose (HCC) Planned postoperative wound closure TRANSFER ADJACENT TISSUE - FACE 05/03/2024 9:32 AM MENTAL HEALTH ASSISTANT Melanoma of nose (HCC) Planned postoperative wound closure POC ISTAT Routine 05/03/2024 8:19 AM MENTAL HEALTH ASSISTANT SURGICAL PATHOLOGY Routine 04/26/2024 12 :00 AM MENTAL HEALTH ASSISTANT Melanoma in situ of nose (HCC) HEPATITIS C RNA, QUANTITATIVE, PCR Routine 08/10/2023 11:40 AM CDT from Last 3 Months or Most Recently Relevant to Health Maintenance Results * OR AN ELECTIVE ENDOTRACHEAL AIRWAY, OR AN PROCEDURE PLACEHOLDER (05/24/2024 12:22 PM MENTAL HEALTH ASSISTANT) Narrative Grey Garcia CRNA - 05/24/2024 12:22 PM MENTAL HEALTH ASSISTANT Grey Garcia CRNA 05/24/2024 12:23 PM Airway Patient location: OR Urgency: elective Indications for airway management: anesthesia Difficult airway: no Staff: Placed by: CORE CUTTER AND REAMER: Grey Garcia CRNA Emergent airway documentation: Risks and benefits discussed: yes Consent obtained: yes Consent given by: patient Airway prep: Preoxygenated: yes Patient position: sniffing Mask difficulty assessment: 1 - vent by mask Spontaneous ventilation during airway: absent Sedation level during airway: GA Final airway details: Final airway type: endotracheal airway Tube type: ETT ETT size: 7.0 mm Cuffed: yes Technique used for successful ETT placement: direct laryngoscopy Devices/Methods used in placement: intubating stylet and LTA Insertion site: oral Blade type: Sari Blade size: 3 Cormack-Lehane (direct): grade I - full view of glottis Cuff volume: 9 mL Cuff inflated with: air ETT to lips: 23 cm Placement verified by: auscultation and CO2 detection Airway secured with: silk tape Number of attempts: 1 us Bruce Whipple MD ANESTHESIA ORDERABLES Isabel l Result * POC ISTAT (05/24/2024 11:14 AM MENTAL HEALTH ASSISTANT) [facility] K POC 3.7 3.3 - 4.9 mmol/L Comment: Interpretive Data This method is not able to assess for hemolysis, which may falsely increase potassium concentrations. If further testing is needed to evaluate this result, consider in-laboratory plasma potassium. Current Interpretive Data was last revised on 2022. POC Device Number [id number] [facility] ALLRED POC Performer [id number] [facility] FARFAN Blood 05/24/2024 11:1 4 AM MENTAL HEALTH ASSISTANT 05/24/2024 11:14 AM MENTAL HEALTH ASSISTANT us Boom Robb Chi, MD LAB BLOOD ORDERABLES Final Result [facility] [address] [address] [facility]. [place] [address] * OR AN ELECTIVE ENDOTRACHEAL AIRWAY, OR AN PROCEDURE PLACEHOLDER (05/03/2024 9:45 AM MENTAL HEALTH ASSISTANT) Narrative Grey Garcia CRNA - 05/03/2024 9:45 AM MENTAL HEALTH ASSISTANT Grey Garcia CRNA 05/03/2024 9:46 AM Airway Patient location: OR Urgency: elective Indications for airway management: anesthesia Difficult airway: no Staff: Placed by: CORE CUTTER AND REAMER: Grey Garcia CRNA Emergent airway documentation: Risks and benefits discussed: yes Consent obtained: yes Consent given by: patient Airway prep: Preoxygenated: yes Patient position: sniffing Mask difficulty assessment: 1 - vent by mask Spontaneous ventilation during airway: absent Sedation level during airway: GA Final airway details: Final airway type: endotracheal airway Tube type: ETT ETT size: 7.0 mm Cuffed: yes Technique used for successful ETT placement: direct laryngoscopy Devices/Methods used in placement: intubating stylet and LTA Insertion site: oral Blade type: Sari Blade size: 3 Cormack-Lehane (direct): grade I - full view of glottis Cuff volume: 8 mL Cuff inflated with: air ETT to lips: 23 cm Placement verified by: auscultation and CO2 detection Airway secured with: silk tape Number of attempts: 1 Shaka Sweeney MD ANESTHESIA ORDERABLES Fin al Result * POC ISTAT (05/03/2024 8:19 AM MENTAL HEALTH ASSISTANT) Pathologist [facility] K POC 3.8 3.3 - 4.9 mmol/L Comment: Interpretive Data This method is not able to assess for hemolysis, which may falsely increase potassium concentrations. If further testing is needed to evaluate this result, consider in-laboratory plasma potassium. Current Interpretive Data was last revised on 2022. POC Device Number [id number] [facility] ALLRED POC Performer [id number] [facility] FARFAN Blood 05/03/2024 8:19 AM MENTAL HEALTH ASSISTANT 05/03/2024 8:19 AM MENTAL HEALTH ASSISTANT Boom Robb Chi, MD LAB BLOOD ORDERABLES Final Result EDNA [facility] [id number] [address] [facility]. Department [place] [address] * Surgical pathology (04/26/2024 12:00 AM MENTAL HEALTH ASSISTANT) Tissue (Skin, excision) 04/26/2024 04/30/2024 6:12 AM MENTAL HEALTH ASSISTANT Narrative [facility] - 05/02/2024 9:39 AM MENTAL HEALTH ASSISTANT EPIC results best viewed via link to PDF [facility] [address] [place] [address], [address], [place] [address] [email or web address] Note to Patients: This report may contain a detailed description of human tissue sent by a health care provider to the laboratory for pathologic evaluation. The content of this report is essential for diagnosis and may provide important critical findings. This information may be unfamiliar to patients to review without a medical professional present. It is advised that the patient review this report in the presence of a health care provider who can answer questions and explain the details. FINAL REPORT Patient Information: PATIENT NAME: KATE HUGGINS SEX: F : 1965 (Age: 58) Specimen Information: COLLECTED: 04/26/2024 RECEIVED: 04/30/2024 REPORTED: 05/02/2024 Submitting Physician Information: Quinn Brower M.D. [facility], [address] [place] [address], [address] [place] [address], [phone] DERMATOPATHOLOGY REPORT RESULTS DIAGNOSIS: A. SKIN, RIGHT NOSTRIL DEBULK, STAGED EXCISION: - RESIDUAL MALIGNANT MELANOMA IN SITU - SCAR FROM A PREVIOUS PROCEDURE Note: A MART-1 immunohistochemical stain was performed to assess the distribution of melanocytes in the lesion and confirms the histologic impression. B. SKIN, RIGHT NOSTRIL 12-3 O'CLOCK, STAGED EXCISION: SOLAR ELASTOSIS Note: There is no evidence of a neoplasm in these sections. C. SKIN, RIGHT NOSTRIL 3-6 O' CLOCK, STAGED EXCISION: SOLAR ELASTOSIS Note: There is no evidence of a neoplasm in these sections. D. SKIN, RIGHT NOSTRIL 6-9 O' CLOCK, STAGED EXCISION: SOLAR ELASTOSIS Note: There is no evidence of a neoplasm in these sections. E. SKIN, RIGHT NOSTRIL 9-12 O' CLOCK, STAGED EXCISION: SOLAR ELASTOSIS Note: There is no evidence of a neoplasm in these sections. brian/lac By this signature, I attest that the above diagnosis is based upon my personal examination of the slides(and/or other material indicated in the diagnosis). Lillian Iraheta M.D. Report Electronically Reviewed and Signed Out By Lillian Iraheta M.D. 05/02/2024 09:39:40 CLINICAL INFORMATION MELANOMA IN SITU SPECIMEN DATA MICROSCOPIC DESCRIPTION: A. There is a proliferation of fibroblasts aligned parallel to the skin surface interposed among linearly arranged, thickened collagen bundles and small blood vessels. (L90.5) B-E. There is abundant, blue elastotic material within the upper part of the dermis. (L57.8) GROSS DESCRIPTION: A. Received in 5 containers of formalin are 5 pieces of silver-dias, variegated, scaly skin and adipose tissue that correspond to the furnished diagram. Container A consists of the central debulk portion that measures 1.3 by 0.7 by 0.2 cm. The specimen bears a pink-silver, scaly, that may abut the peripheral margin area measuring 0.7 by 0.3 cm. This piece is serially sectioned into 5 pieces and entirely submitted in a single cassette. Due to shrinkage, measurements may be different than those at time of procedure. Container B consists of the 12-3 o c lock portion that measures 1.3 by 0.7 by 0.2 cm and has been differentially inked yellow and red by the submitting physician. This piece is entirely submitted in cassette B1 for horizontal sectioning. Due to shrinkage, measurements may be different than those at time of procedure. Container C consists of the 3-6 o c lock portion that measures 1.1 by 0.7 by 0.3 cm and has been differentially inked red and grumous by the submitting physician. This piece is entirely submitted in cassette C1 for horizontal sectioning. Due to shrinkage, measurements may be different than those at time of procedure. Container D consists of the 6-9 o c lock portion that measures 1.0 by 0.6 by 0.3 cm and has been differentially inked grumous and blue by the submitting physician. This piece is entirely submitted in cassette D1 for horizontal sectioning. Due to shrinkage, measurements may be different than those at time of procedure. Container E consists of the 9-12 o c lock portion that measures 1.2 by 0.9 by 0.3 cm and has been differentially inked blue and yellow by the submitting physician. This piece is entirely submitted in cassette E1 for horizontal sectioning. Due to shrinkage, measurements may be different than those at time of procedure. dh/mxf ICD-9 ZSD.1055 ZSD.135 ZSD.1387 Clerical Data A; 93915, 19392-RI B; 44958 C; 09387 D; 99072 E; 53998 The characteristics of special, immunohistochemical, and immunofluorescence stains and in-situ hybridization tests performed by the [facility] were deemed acceptable in ongoing quality control chemist measures and in compliance with regulations drawn from the Clinical Laboratory Improvement Act gq6599 (CLIA '88). Control reactions for all stains performed were deemed adequate and appropriate by a pathologist prior to evaluation of patient tissue. Some diagnoses were rendered with the assistance of laboratory-developed tests utilizing analyte-specific reagents; the performance characteristic of these tests were determined by [facility] and are not cleared or approved by the [place] Food an Drug administration. Laboratory developed test may only be performed in a facility that is certified by the [facility] as a high-complexity laboratory under CLIA '88. These tests are used for clinical purposes and are not investigational. Paige Brower MD LAB PATHOLOGY ORDERABLE S Final Result [facility] [address] [place] [id number] * Hepatitis C (HCV) RNA PCR, quantitative Blood (08/10/2023 11:40 AM CDT) HCV RNA result Not Detected MERGED WITH [facility] Comment: The quantifiable range of this assay is 15 IU/mL to 100,000,000 IU/mL (1.18 log IU/mL to 8.00 log IU/mL). Testing was performed by the LINDA 6800 HCV Test ([employer] Testing performed at [facility] Current Interpretive Data was last revised on 2020 Testing performed by: [facility], [address] [facility], [place]., [address] Blood 08/10/2023 11:4 0 AM CDT 08/12/2023 7:54 PM CDT us Nina [place] MD LAB MICROBIOLOGY - GENERAL ORDER MARY Final Result [facility] [address] Department [place] [address] MERGED WITH [facility] from Last 3 Months or Most Recently Relevant to Health Maintenance Insurance D[place]ICA [place]ON [id number] [facility] DANICA MCKEON [id number] [facility] [id number] [facility] Care Teams Director Product Safety Relationship Specialty Start Date End Date Jeana Crespo, TAG METER OPERATOR [address] [place] [address] PCP - General Family Medicine 05/03/24
--- OUTSIDE RECORDS SUMMARY | 2024-07-03 12:51 | XMS_ITS | Clinical Summary ---
Author Organization [facility] Address [address] [place] [address] Care Team Providers Care Renal Medicine Specialist Name Role Phone None, Provider MD Primary Care Provider Unavaila ble Allergies No known active allergies Medications phentermine (ADIPEX-P) 37.5 MG tablet 01/06/20 22 Active omeprazole (PRILOSEC) 20 MG capsule Take 20 mg by mouth daily. Active FLUoxetine (PROZAC) 20 MG capsule Take 20 mg by mouth daily. Active topiramate (TOPAMAX) 50 MG Tab Take 1 tablet by mouth 2 (two) times daily. Active estradiol (ESTRACE) 1 MG tablet Take 1 mg by mouth daily. Active lisinopril 20 MG TABS 20 mg, hydroCHLOROthiazide 12.5 MG CAPS 12.5 mg Take by mouth daily. Active Active Problems No known active problems Social History Tobacco Use Types Packs/Day Years Used Date Smoking Tobacco: Never Assessed Comments No Sex and Gender Information Value Date Recorded Sex Assigned at Not on file Legal Sex Female 3:56 PM CDT Gender Identity Not on file Sexual Orientation Not on file Last Filed Vital Signs Vital Sign Reading Time Taken Comments Blood Pressure 111/72 02/14/2022 4:24 PM CDT Pulse 75 02/14/2022 4:24 PM CDT Temperature 36.3 C (97.3 F) 02/14/2022 4:24 PM CDT Respiratory Rate 16 02/14/2022 4:24 PM CDT Oxygen Saturation 100% 02/14/2022 4:24 PM CDT Inhaled Oxygen Concentration - - Weight 78.9 kg (174 lb) 02/14/2022 4:24 PM CDT Height 157.5 cm (5' 2 ) 02/14/2022 4:24 PM CDT Body Mass Index 31.83 02/14/2022 4:24 PM CDT Plan of Treatment Health Maintenance Due Date Last Done Comments Cervical Cancer Screening Pa p Smear (Age 30 to 64) Every 3 Years 1967 Colorectal Cancer Screening Colonoscopy (10 Years) 1967 Annual Physical 11/22/1970 Hepatitis C 11/22/1985 Hepatitis B Vaccines (1 of 3 - 19+ 3-dose series) 11/22/1986 Cervical Cancer Screening Pa p with HPV Testing (Age 30 to 64) Every 5 Years 11/22/1997 Cervical Cancer Screening with HPV 11/22/1997 Mammogram Screening 2007 Zoster Vaccines (1 of 2) 11/22/2017 COVID-19 Vaccine ( - 2023-2 5 season) 2023 Influenza Adult (#1) 2024 DTaP, Tdap and Td Vaccines ( 2 - Td or Tdap) 05/30/2028 05/30/2018 Meningococcal B Vaccine Aged Out No l onger eligible based on patient's age to complete this topic Meningococcal Vaccine Aged Out No lazaro tejas eligible based on patient's age to complete this topic Pneumococcal Vaccine: Pediat rics (0 to 5 Years) and At-Risk Patients (6 to 64 Years) Aged Out No longer eligi ble based on patient's age to complete this topic RSV Immunizations Under 20 Months Aged Out No longer eligible based on patient's age to complete this topic Insurance [employer] Care Teams Renal Medicine Specialist Relationship Specialty Start Date End Date None, Provider, MD PCP - General UNKNOWN PHYSICIAN SPECIALTY 02/14/22
--- OUTSIDE RECORDS SUMMARY | 2024-07-03 12:51 | XMS_ITS | Clinical Summary ---
Author Organization [facility] Address [address] [place] [address] Care Team Providers Care Speech Therapist Name Role Phone Criss Lima MD Primary Care Provider [phone] Source Comments [facility],non-owned Affiliates and Associated Physician Practices is amultiple site organization consisting of ambulatory clinics and hospital sitesin [place], [place], [place] and [place]. This disclosure is being madepursuant to the Care Everywhere program and may not contain all information available regarding this patient. Last updated 18.[facility] Allergies No known active allergies Medications * Be aware that medications may not be up to date on this document. Alwaysverify current medications with the patient. Medication Sig Dispensed Refills Start Date End Date Status LISINOPRIL-HYDROCHLOR OTHIAZIDE PO Active predniSONE (DELTASONE) 20 MG tabletIndications:Acu te sinusitis, recurrence not specified, unspecified location Take 1 tablet by mouth 2 times daily 14 tablet 01/24/2018 Active albuterol HFA (VENTOLIN HFA) 108 (90 BASE) MCG/ACT inhalerIndications:Ac jamul bronchitis, unspecified organism Inhale 2 puffs by mouth every 4 hours as needed for Wheezing or Cough 1 Inhaler 01/24/2018 Active Active Problems No known active problems Family History Medical History Relation Name Comments CVA Father Diabetes - Type 2 Father Hypertension Father Cancer - Colon Mother Relation Name Status Comments Father Mother Social History Tobacco Use Types Packs/Day Years Used Date Smoking Tobacco: Never Smokeless Tobacco: Never Sex and Gender Information Value Date Recorded Sex Assigned at Not on file Gender Identity Not on file Sexual Orientation Not on file Last Filed Vital Signs Vital Sign Reading Time Taken Comments Blood Pressure 122/84 01/24/2018 4:28 PM CDT Pulse 67 01/24/2018 4:28 PM CDT Temperature 37.4 C (99.3 F) 01/24/2018 4:28 PM CDT Respiratory Rate 17 01/24/2018 4:28 PM CDT Oxygen Saturation 98% 01/24/2018 4:28 PM CDT Inhaled Oxygen Concentration - - Weight 90.7 kg (200 lb) 01/24/2018 4:28 PM CDT Height 157.5 cm (5' 2 ) 01/24/2018 4:28 PM CDT Body Mass Index 36.58 01/24/2018 4:28 PM CDT Plan of Treatment Health Maintenance Due Date Last Done Comments COLOGUARD (AGES 45-75) - COL ON CA SCREENING 1967 COLON MONITORING 1967 COLONOSCOPY - COLON CA SCREENING 1967 CT COLONOGRAPHY - COLON CA SCREENING 1967 Colorectal Cancer Screening 1967 FIT - COLON CA SCREENING 1967 FLEX SIG - COLON CA SCREENING 1967 LIPID TESTING 1967 MAMMOGRAM 1967 PAP SMEAR 1967 HIV SCREENING 11/22/1982 HEPATITIS C SCREENING 11/18/1985 DTAP/TDAP/TD VACCINES (1 - Tdap) 11/22/1986 HEPATITIS B VACCINE (1 of 3 - 19+ 3-dose series) 11/22/1986 PNEUMOCOCCAL VACCINE 50+ (1 of 1 - PCV) 11/22/2017 ZOSTER VACCINE (1 of 2) 11/22/2017 SCREENING FOR DIABETES 01/24/2018 COVID-19 VACCINE (1 - 2023-2 5 season) 2023 INFLUENZA VACCINE (#1) 2023 DEPRESSION SCREENING 04/18/2024 HIB VACCINE Aged Out No longer eligi ble based on patient's age to complete this topic HPV VACCINE Aged Out No longer eligi ble based on patient's age to complete this topic MENINGOCOCCAL (Group B) VACC INE SHARED DECISION-MAKING Aged Out No longer eligibl e based on patient's age to complete this topic MENINGOCOCCAL GROUPS A/C/Y/W VACCINE Aged Out No longer eligible b ased on patient's age to complete this topic PNEUMOCOCCAL VACCINE Aged Out No long er eligible based on patient's age to complete this topic Care Teams Speech Therapist Relationship Specialty Start Date End Date Criss Lima MD [address] [place] [id number] PCP - General Family Medicine 01/24/18
--- OUTSIDE RECORDS SUMMARY | 2024-07-03 12:51 | XMS_ITS | Clinical Summary ---
Author Organization [facility] Address [address] [place] [address] Care Team Providers Care Boiler Tube Reamer Name Role Phone Jeana Crespo NP Primary Care Provider [phone] Allergies No known active allergies Medications aspirin (Adult Low Dose Aspirin) 81 mg enteric coated tabletIndicatio ns:prevention of thrombosis,PE early 2023 Take 1 tablet (81 mg total) by mouth nightly Active caffeine 200 mg tabletIndicatio ns:Drowsy Take 1 tablet (200 mg total) by mouth steel division supervisor before breakfast Active collagen, hydrolysate, bovine, (collagen, hydr, bovine,, bulk,) 100 % powderIndicatio ns:health Take 1 Scoop by mouth steel division supervisor before breakfast Active Cymbalta 60 mg capsuleIndicati ons:Anxiety with Depression Take 1 capsule (60 mg total) by mouth steel division supervisor before breakfast Active FLUoxetine (PROzac) 20 mg capsuleIndicati ons:depression Take 1 capsule (20 mg total) by mouth steel division supervisor before breakfast Active glucosamine/cho ndr amaral A sod (glucosamine-ch ondroitin) 1,500-1,200 mg/30 mL liquidIndicatio ns:health Take 2 tablets by mouth steel division supervisor before breakfast Active hydroxychloroqu ine (PLAQUENIL) 200 mg tabletIndicatio ns:Rheumatoid Arthritis Take 1 tablet (200 mg total) by mouth 2 (two) times a day Active lisinopril-hydr oCHLOROthiazide (ZESTORETIC) 20-12.5 mg per tabletIndicatio ns:hypertension Take 1 tablet by mouth steel division supervisor before breakfast 4 Active ix-ij-yxih-FA-C a carb-vit K (Women's Multivitamin) 18 mg-400 mcg- 500 mg-50 mcg tabletIndicatio ns:Mineral Deficiency Prevention,Katie min Deficiency Prevention Take 1 tablet by mouth steel division supervisor before breakfast Active omeprazole (PriLOSEC) 40 mg capsuleIndicati ons:Stress Ulcer Prophylaxis,Jordon atment of Non-Bleeding Gastric Disorder Take 1 capsule (40 mg total) by mouth steel division supervisor before breakfast Active phentermine (ADIPEX-P) 37.5 mg [...] for up to 10 doses 10 tablet 5 Active Active Problems Problem Noted Date Diagnosed Date Basal cell carcinoma of nose 05/11/2024 Malignant melanoma of skin of nose 05/11/2024 Nasal valve collapse 05/03/2024 Melanoma of nose 04/13/2024 Planned postoperative wound closure 04/13/2024 Encounters Date Type Department Care Team Description 06/15/2024 11:40 AM MUSHROOM CULTIVATOR Office Visit [facility] ENT [address] [place] [address] Office [address] [address] Boom Franklin MD Nasal obstruction (Primary Dx); Nasal valve collapse; History of melanoma 06/01/2024 10:00 AM MUSHROOM CULTIVATOR Office Visit [facility] ENT [address] [place] [address] Office [address] [address] Boom Franklin MD 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 [place] [address] Boom Franklin MD TRANSFER ADJACENT TISSUE - FACE 05/24/2024 12:01 PM MUSHROOM CULTIVATOR Anesthesia Event [facility] [address] [facility] [place] [address] Bruce Whipple MD Helsten, Daniel Luke, MD 05/24/2024 10:42 AM MUSHROOM CULTIVATOR - 05/24/2024 3:23 PM MUSHROOM CULTIVATOR Hospital Encounter [facility] [address] [place] [facility] [place] [phone] Boom Franklin MD Planned postoperative wound closure [Z48.1] (Primary Dx); 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]; Nasal valve collapse [J34.829] Discharge Disposition: Discharge to home or self care 05/11/2024 9:40 AM MUSHROOM CULTIVATOR Office Visit [facility] ENT [address] [place] [address] Medical Office Building [address] [place] [phone] Boom Franklin MD 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); Encounter for planned post-operative wound closure; Nasal valve collapse; Nasal obstruction 05/03/2024 9:45 AM MUSHROOM CULTIVATOR - 05/03/2024 12:00 PM [facility] Surgery [facility] [address] [facility] [place] [address] Boom Franklin MD TRANSFER ADJACENT TISSUE - FACE 05/03/2024 9:27 AM MUSHROOM CULTIVATOR Anesthesia Event [facility] [address] [facility] [place] [address] Helsten, MD Delfina Rayo Liza Marie Ortillo, NP 05/03/2024 7:40 AM MUSHROOM CULTIVATOR - 05/03/2024 12:25 PM MUSHROOM CULTIVATOR Hospital Encounter 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 Medical History Medical History Date Comments Hypertension GERD (gastroesophageal reflux disease) Depression Deep vein thrombosis (HCC) 10 months ago Family History Medical History Relation Name Comments Diabetes Father Epi Snoring Father Epi Stroke Father Epi Cancer Mother Miranda Anesthesia problems Neg Hx Relation Name Status Comments Father Bill Alive Mother Miranda Alive Social History Tobacco Use Types Packs/Day Years [...] on file Sexual Orientation Not on file Obstetrics History Last Filed Vital Signs Vital Sign Reading Time Taken Comments Blood Pressure 115/56 05/24/2024 3:00 PM MUSHROOM CULTIVATOR Pulse 80 05/24/2024 3:10 PM MUSHROOM CULTIVATOR Temperature 36.2 C (97.2 F) 05/24/2024 2:15 PM MUSHROOM CULTIVATOR Respiratory Rate 12 05/24/2024 3:10 PM MUSHROOM CULTIVATOR Oxygen Saturation 94% 05/24/2024 3:10 PM MUSHROOM CULTIVATOR Inhaled Oxygen Concentration - - Weight 85.9 kg (189 lb 4.8 oz) 05/24/2024 10:51 AM MUSHROOM CULTIVATOR Height 157.5 cm (5' 2 ) 05/24/2024 10:51 AM MUSHROOM CULTIVATOR Body Mass Index 34.62 05/24/2024 10:51 AM MUSHROOM CULTIVATOR Plan of Treatment Health Maintenance Due Date Last Done Comments Breast Cancer Screening-Mammogram 1967 Colon Cancer Screening-Colonoscopy 1967 Depression Screening 1967 Hepatitis B Screening 11/22/1985 Regular Well Visit/Exam 18-64 11/22/1985 Pneumococcal vaccine <65 (1 of 2 - PCV) 11/22/1986 Zoster Vaccine (1 of 2) 11/22/1986 Influenza Vaccine (#1) 2023 DTaP/Tdap/Td Vaccine (2 - Td or Tdap) 05/30/202803/2019 Hepatitis C Screening Completed 08/10/2023 Procedures Procedure Name Priority Date/Time Associated Diagnosis Comments AR AN PROCEDURE PLACEHOLDER Routine 05/24/2024 12:22 PM MUSHROOM CULTIVATOR AR AN ELECTIVE ENDOTRACHEAL AIRWAY Routine 05/24/2024 12:22 PM MUSHROOM CULTIVATOR DIVISION FOREHEAD FLAP 12:05 PM MUSHROOM CULTIVATOR Malignant melanoma of skin of nose (HCC) Planned postoperative wound closure RECONSTRUCTION FACE 05/24/2024 1 2:05 PM MUSHROOM CULTIVATOR Malignant melanoma of skin of nose (HCC) Planned postoperative wound closure TRANSFER ADJACENT TISSUE - FACE 05/24/2024 12:05 PM MUSHROOM CULTIVATOR Malignant melanoma of skin of nose (HCC) Planned postoperative wound closure POC ISTAT Routine 05/24/2024 11:14 AM MUSHROOM CULTIVATOR AR AN PROCEDURE PLACEHOLDER Routine 05/03/2024 9:45 AM MUSHROOM CULTIVATOR AR AN ELECTIVE ENDOTRACHEAL AIRWAY Routine 05/03/2024 9:45 AM MUSHROOM CULTIVATOR REPAIR NASAL VALVE. 05/03/2024 9 :32 AM MUSHROOM CULTIVATOR Melanoma of nose (HCC) Planned postoperative wound closure MELOLABIAL FLAP 05/03/2024 9:32 AM MUSHROOM CULTIVATOR Melanoma of nose (HCC) Planned postoperative wound closure REPAIR MOHS 05/03/2024 9:32 AM MUSHROOM CULTIVATOR Melanoma of nose (HCC) Planned postoperative wound closure TRANSFER ADJACENT TISSUE - FACE 05/03/2024 9:32 AM MUSHROOM CULTIVATOR Melanoma of nose (HCC) Planned postoperative wound closure POC ISTAT Routine 05/03/2024 8:19 AM MUSHROOM CULTIVATOR SURGICAL PATHOLOGY Routine 04/26/2024 12 :00 AM MUSHROOM CULTIVATOR Melanoma in situ of nose (HCC) HEPATITIS C RNA, QUANTITATIVE, PCR Routine 08/10/2023 11:40 AM CDT from Last 3 Months or Most Recently Relevant to Health Maintenance Results * AR AN ELECTIVE ENDOTRACHEAL AIRWAY, AR AN PROCEDURE PLACEHOLDER (05/24/2024 12:22 PM MUSHROOM CULTIVATOR) Narrative Grey Garcia CRNA - 05/24/2024 12:22 PM MUSHROOM CULTIVATOR Grey Garcia CRNA 05/24/2024 12:23 PM Airway Patient location: OR Urgency: elective Indications for airway management: anesthesia Difficult airway: no Staff: Placed by: DIP DYER: Grey Garcia CRNA Emergent airway documentation: Risks [...] Result * POC ISTAT (05/24/2024 11:14 AM MUSHROOM CULTIVATOR) [facility] [address] K POC 3.7 3.3 - 4.9 mmol/L Comment: Interpretive Data This method is not able to assess for hemolysis, which may falsely increase potassium concentrations. If further testing is needed to evaluate this result, consider in-laboratory plasma potassium. Current Interpretive Data was last revised on 2022. POC Device Number [id number] [facility] POC Performer [id number] [facility] Blood 05/24/2024 11:1 4 AM MUSHROOM CULTIVATOR 05/24/2024 11:14 AM MUSHROOM CULTIVATOR Boom Robb Chi, MD LAB BLOOD ORDERABLES Final Result Performing Organization Address City/State/[facility] Co il Phone Number [facility] [address] [facility] Department [place] [address] * AR AN ELECTIVE ENDOTRACHEAL AIRWAY, AR AN PROCEDURE PLACEHOLDER (05/03/2024 9:45 AM MUSHROOM CULTIVATOR) Narrative Grey Garcia CRNA - 05/03/2024 9:45 AM MUSHROOM CULTIVATOR Grey Garcia CRNA 05/03/2024 9:46 AM Airway Patient location: OR Urgency: elective Indications for airway management: anesthesia Difficult airway: no Staff: Placed by: DIP DYER: Grey Garcia CRNA Emergent airway documentation: Risks [...] silk tape Number of attempts: 1 us Shaka Sweeney MD ANESTHESIA ORDERABLES Fin al Result * POC ISTAT (05/03/2024 8:19 AM MUSHROOM CULTIVATOR) K POC 3.8 3.3 - 4.9 mmol/L Comment: Interpretive Data This method is not able to assess for hemolysis, which may falsely increase potassium concentrations. If further testing is needed to evaluate this result, consider in-laboratory plasma potassium. Current Interpretive Data was last revised on 2022. POC Device Number [id number] [facility] POC Performer [id number] [facility] Blood 05/03/2024 8:19 AM MUSHROOM CULTIVATOR 05/03/2024 8:19 AM MUSHROOM CULTIVATOR Boom Robb Chi, MD LAB BLOOD ORDERABLES Final Result Performing Organization Address City/State/[facility] Co de Phone Number [facility] [address] [facility] Department [place] [address] * Surgical pathology (04/26/2024 12:00 AM MUSHROOM CULTIVATOR) Tissue (Skin, excision) 04/26/2024 04/30/2024 6:12 AM MUSHROOM CULTIVATOR Narrative [facility] - 05/02/2024 9:39 AM MUSHROOM CULTIVATOR EPIC results best viewed via link to PDF [facility] [address] [place] [address], [address], [place] [address] [email or web address] Note to Patients: This report may contain [...] 05/02/2024 Submitting Physician Information: Quinn Brower M.D. [facility], [address] [place] [address], [facility] [address] [place] [address], [phone] DERMATOPATHOLOGY REPORT RESULTS DIAGNOSIS: A. SKIN, RIGHT [...] ICD-9 ZSD.1055 ZSD.135 ZSD.1387 Clerical Data A; 62762, 34871-HQ B; 99147 C; 69764 D; 20051 E; 18350 The characteristics of special, immunohistochemical, and immunofluorescence stains and in-situ hybridization tests performed by the [facility] were deemed acceptable in ongoing senior software quality engineer measures and in compliance with regulations drawn from the Clinical Laboratory Improvement Act dc4513 (CLIA '88). Control reactions for all stains performed were deemed adequate and appropriate by a pathologist prior to evaluation of patient tissue. Some diagnoses were rendered with the assistance of laboratory-developed tests utilizing analyte-specific reagents; the performance characteristic of these tests were determined by [facility] and are not cleared or approved by the [place] Food an Drug administration. Laboratory developed test may only be performed in a facility that is certified by the [facility] as a high-complexity laboratory under CLIA '88. These tests are used for clinical purposes and are not investigational. Paige Brower MD LAB PATHOLOGY ORDERABLE S Final Result [facility] [address] [place] [id number] * Hepatitis C (HCV) RNA PCR, quantitative Blood (08/10/2023 11:40 AM CDT) HCV RNA result Not Detected [facility] Comment: The quantifiable range of this assay is 15 IU/mL to 100,000,000 IU/mL (1.18 log IU/mL to 8.00 log IU/mL). Testing was performed by the LINDA 6800 HCV Test ([employer] Testing performed at [facility] Current Interpretive Data was last revised on 2020 Testing performed by: [facility], [address] [place]., [address] Blood 08/10/2023 11:4 0 AM CDT 08/12/2023 7:54 PM CDT Nina Nichols MD LAB MICROBIOLOGY - GENERAL ORDER MARY Final Result [facility] [address] Department [place] [address] [facility] from Last 3 Months or Most Recently Relevant to Health Maintenance [place] [address] [place] [address] [facility] Care Teams Boiler Tube Reamer Relationship Specialty Start Date End Date Jeana Crespo NP [address] [place] [address] PCP - General Family Medicine 05/03/24
== END 2024-07-03 11:14 | disposition home or self-care (01) ==
PROVIDERS: PCP Nurse Practitioner Family; Visit Provider Nurse Practitioner Family
DX: I83.899 Varicose veins of unspecified lower extremity with other complications (principal); M79.89 Other specified soft tissue disorders
CPT/HCPCS: 93970

== ENCOUNTER 2025-03-02 13:59 | Inpatient (IN) | payer OTHER, SELFPAY ==
--- NOTE | ~2025-03-02 | MR_ITS ---
EXAMINATION: MR brain/brain stem wo con DATE: 03/05/2025 18:56 INDICATION: Weakness. TECHNIQUE: Magnetic resonance imaging (MRI) of the brain and brainstem was performed without intravenous contrast. Patient was unable to tolerate all sequences. COMPARISON: MRI C-spine dated 03/05/2025. FINDINGS: No acute infarct is noted on the diffusion sequence. No evidence of acute intracranial bleed is noted on T2*gradient echo sequence. No evidence of space-occupying lesions or ventriculomegaly. No midline shift. IMPRESSION: 1. Limited evaluation as patient is unable to tolerate all sequences. 2. No intracranial bleed. No acute ischemia. No evidence of intracranial space occupying lesions are seen. Reviewed, dictated and finalized at location T. R RESOURCE ENGINEER
--- NOTE | ~2025-03-02 | CT_ITS ---
EXAMINATION: CTA brain carotid, 03/02/2025 18:30 RADIOPHONE OPERATOR HISTORY: leg weakness COMPARISON: No comparisons available. TECHNIQUE: CTA scan with 3D Reconstructions of the brain and neck was performed with contrast Isovue 300, 92cc injected IV. One or more of the following dose reduction techniques were used: automated exposure control, adjustment of the mA and/or kV according to patient size, use of iterative reconstruction technique. Unless otherwise stated, incidental findings do not require dedicated follow up imaging FINDINGS: CTA brain: Noncontrast images demonstrate no gross hemorrhage. Mastoid air cells, sinuses and orbits unremarkable. The visualized brain parenchyma appears unremarkable. Basilar artery is unremarkable. The right posterior cerebral artery is unremarkable. The left posterior cerebral artery is unremarkable. The right petrous and cavernous ICA segments unremarkable. The right M1, M2 segments and branches unremarkable. The right A1 and A2 segments are unremarkable. The left petrous and cavernous ICA segments unremarkable. The left M1, M2 segments and their branches are unremarkable. The left A1 and A2 segments are unremarkable. CTA NECK: Osseous structures are unremarkable. There is no thickening of the prevertebral space. The visualized parotid and submandibular glands are unremarkable. No thyroid nodules. Lung apices appear unremarkable. There is no lymphadenopathy appreciated. The cervical segments of the vertebral arteries appear unremarkable. Right CCA unremarkable. Proximal right ICA unremarkable Left CCA unremarkable. Proximal left ICA unremarkable IMPRESSION: 1. No critical stenosis, occlusion or aneurysm is identified. Reviewed, dictated and finalized at location P. OPHONE OPERATOR
--- NOTE | ~2025-03-02 | MR_ITS ---
EXAMINATION: MR thoracic spine wo con DATE: 03/04/2025 12:24 INDICATION: Lower extremity weakness and paresthesias TECHNIQUE: Magnetic resonance imaging (MRI) of the thoracic spine was performed without intravenous contrast. Examination ordered as without and with contrast however patient was unable to tolerate entire sequence of imaging. Study was terminated at patient request prior to obtaining the post contrast images. Sagittal localizer T1-weighted FSE of the cervicothoracic spine was obtained. Thoracic spine sequences included sagittal T2-weighted FSE, sagittal T1-weighted SE, Sagittal T2-weighted FS FSE, and axial T2-weighted FSE. COMPARISON: Lumbar spine MR dated 03/02/2025 and 12/22/2023 FINDINGS: 8 degrees thoracic dextrocurvature measured between T4 and T8.2-3 mm retrolisthesis L1 on L2. Chronic mild likely physiologic anterior wedging at T12. Remaining vertebral body heights are normal. Normal bone marrow signal throughout. Moderate disc height loss at and T5-T6, T7-T8 through T9-T10, T12-L1 and L1-L2. Mild disc height loss at T3-T4, T4-T5 and T6-T7. There are disc bulges from T4-T5 through through T9-T10 resulting in multilevel mild central canal stenosis. The disc bulges mildly flatten the ventral surface of the cord on the left at T4-T5, bilaterally at T5-T6 and T6-7 and on the right at T7-T8. There is normal spinal cord signal. The conus terminates at L1-L2. There is multilevel bilateral moderate thoracic facet osteoarthritis. The facet osteoarthritis and disc bulges contributing to moderate neural foraminal stenosis on the bilaterally at T8-T9 and on the right at T9-T10. There is mild neural foraminal stenosis on the left and right at multiple levels throughout the remainder of the thoracic spine. Paravertebral soft tissues are unremarkable. IMPRESSION: 1. Moderate thoracic spondylosis. Reviewed, dictated and finalized at location A. EMS ADMINISTRATOR
--- NOTE | ~2025-03-02 | MR_ITS ---
EXAMINATION: MR lumbar spine wo cat, 03/02/2025 15:50 BUDDER HISTORY: precipitous numbness/weakness to legs, r/o cauda COMPARISON: None TECHNIQUE: Multi-planar multi-sequence images were obtained of the lumbar spine without contrast per protocol. FINDINGS: There is grade 1 anterolisthesis of L5 on S1 with bilateral spondylolytic defects. No acute fracture is identified. Mild loss of vertebral height throughout. Marrow signal is appropriate. Posterior alignment is intact. There is no abnormal signal within the posterior elements The conus terminates at T12-L1, there is no abnormal signal within the cord Moderate loss of disc height throughout with moderate disc desiccation and endplate degenerative changes at L1-2, L2-3 and L5-S1. Soft tissues appear unremarkable L5-S1: Circumferential bulging of the disc with ligamentum flavum and facet hypertrophy. Moderate to severe bilateral foramina and lateral recess stenosis with moderate canal stenosis. L4-5: Circumferential bulging of the disc with ligamentum flavum and facet hypertrophy. Moderate to severe bilateral foramina and lateral recess stenosis, mild canal stenosis. L3-4: Circumferential bulging of the disc with moderate ligamentum flavum and facet hypertrophy. Moderate bilateral foramina stenosis, no lateral recess or canal stenosis. L2-L3: No canal or foraminal stenosis L1-L2: No canal or foraminal stenosis IMPRESSION: Degenerative changes detailed above Reviewed, dictated and finalized at location P. ER
--- NOTE | ~2025-03-02 | MR_ITS ---
EXAMINATION: MR cervical spine wo con DATE: 03/05/2025 18:39 INDICATION: 59-year-old with weakness. TECHNIQUE: Magnetic resonance imaging (MRI) of the cervical spine was performed without intravenous contrast. Sequences included sagittal T2-weighted FSE, sagittal T2-weighted FS FSE, sagittal T1-weighted FSE, axial MERGE, and axial T2-weighted FSE. COMPARISON: MRI thoracic spine dated 03/04/2025, CT angiogram head and neck dated 03/02/2025 FINDINGS: No acute abnormalities of the cervical vertebrae are seen. Strictures of the foramen magnum are normal in the sagittal view. At C2-3 level, no significant focal dislocations. At C3-4 level, no significant focal dislocations. At C4-5 level, degenerative disc disease with bulging annulus is noted causing mild compromise of the thecal sac and both lateral recesses, left more than the right. AP diameter of thecal sac in the midline measures 7 mm. At C5-6 level, degenerative disc disease causing minimal compromise of the left neural foramen. C6-7 disc shows no focal lesions. C7-T1 disc is normal. Cervical spinal cord shows no focal lesions. Paravertebral soft tissues are unremarkable. IMPRESSION: 1. No acute bony lesions are cervical vertebrae. 2. Degenerative disc changes as described above at C4-5 level with bulging annulus causing mild compromise of the thecal sac and both lateral recesses. Findings at the levels are described above in detail. 3. No focal lesions of the cervical spinal cord. Reviewed, dictated and finalized at location T. [employer] IMPRESSION: 1. No acute bony lesions are cervical vertebrae. 2. Degenerative disc changes as described above at C4-5 level with bulging el carmel causing mild compromise of the thecal sac and both lateral recesses. Findin gs at the levels are described above in detail. 3. No focal lesions of the cervical spinal cord.
[2025-03-02 14:02] VITALS: BP 124/62; PULSE 78; RESP 20; TEMP 36.7; O2SAT 98
[2025-03-02] MEDS: CYCLOBENZAPRINE HCL 10 MG TABLET PO (15:41)
[2025-03-02] MEDS: MORPHINE SULFATE (*CRX) 4 MG/ML INJ IV PUSH (15:41)
[2025-03-02 15:43] LABS: Hematocrit 36.6 % (37.0-47.0); Hemoglobin 12.2 g/dL (12.0-15.0); Immature Granulocyte Percent A 0.2 % (0-0.5); Lymphocytes Absolute Auto 1.35 K/mm3 (0.9-3.2); Mean Corpuscular HGB Conc 33.3 g/dl (32-36); Mean Corpuscular Hemoglobin 31.4 pg (26-34); Mean Corpuscular Volume 94.1 fl (80-100); Nucleated Red Blood Cells Absolute Auto 0.000 K/mm3 (0.0-0.012); Nucleated Red Blood Cells Perc 0.0 % (0.0-0.2); Platelet Count Result 262 k/mm3 (150-375); Red Blood Count 3.89 M/mm3 (4.2-5.4); White Blood Count 4.9 K/mm3 (4.5-10.0)
--- NOTE | 2025-03-02 15:44 | ED.EXTPRO ---
HPI - Extremity Problem General Chief complaint: Extremity Problem,Nontraumatic Stated complaint: Bilateral lower leg numbness Time Seen by Provider: 03/02/25 15:02 Source: patient Mode of arrival: ambulatory Limitations: no limitations History of Present Illness HPI Narrative: This is a 59-year-old female with history of GERD, hypertension, sciatica who presents the ED for leg weakness. Patient states that for the past few hours, she has been having leg weakness that started while she was eating lunch. She states that it started in her right foot and radiate up her leg and subsequently into her left leg. She is having low back pain that is similar to prior episodes of back pain but she has never had the leg numbness before. Denies saddle anesthesia, bladder/bowel incontinence. She does report a shooting sensation going up her bilateral legs. Related Data Home Medications ?Medication ?Instructions ?Recorded ?Confirmed ?Last Taken ?Type glucosamine sulfate 500 mg tablet 1,000 mg PO DAILY 11/03/20 12/31/24 06/24/23 08:00 History (Glucosamine) Allergies Allergy/AdvReac Type Severity Reaction Status Date / Time No Known Drug Allergies Allergy Unknown NONE Verified 03/02/25 14:09 Review of Systems Review of Systems: Gen.: Denies fevers or chills Eyes: Denies eye pain or visual change ENT: Denies congestion Respiratory: Denies shortness of breath or cough CV: Denies chest pain or palpitations GI: Denies abdominal pain nausea, emesis or diarrhea denies burning, urgency, frequency or hematuria Musculoskeletal: Denies back pain or muscle pain Neuro: As per HPI Skin: Denies rash Except as documented, all other systems reviewed and negative [facility] Past Medical History Medical History (Updated 03/02/25 @ 19:57 by Samuel Bridges DO) Malignant melanoma of face Hyperlipidemia Gastroesophageal reflux disease Benign essential hypertension Atrophic vaginitis Uterine fibroid Surgical History Surgical History History of 2 sections History of vaginal hysterectomy History of carpal tunnel surgery History of cholecystectomy History of tubal ligation Family History Family History Father Hypertension Cerebrovascular accident Family history of diabetes mellitus in first degree relative Diabetes mellitus Mother Carcinoma of colon Family history of heart disease in male family member before age 55 Social History Social History Social History: Surrogate medical decision maker: Nabeel Earl, spouse. Code status: Full code. Smoking status: Never smoker Second hand tobacco smoke exposure: No Alcohol intake: current Substance use: unknown Substance use type: does not use Do You Feel Safe in your Home?: Yes Lack of Transportation: No Lack of Food: Never True Current Housing: I Have Housing Concerned About Future Housing: No Difficulty Paying Gas/Electric Bills: No Difficulty Paying for Meds: No Currently Unemployed: No Education: High School Diploma/GED Difficulty w/ Childcare or Family Care: No Spiritual care concerns: No Exam Narrative: APPEARANCE: No acute distress, nontoxic, resting in bed EYES: EOMI HEENT: Normocephalic, atraumatic, OMM RESPIRATORY: No respiratory distress Clear to auscultation bilaterally with no rhonchi wheezing or rales. CARDIOVASCULAR: Regular rate and rhythm without murmurs rubs or gallops. ABDOMINAL: Soft, nontender, nondistended, no rebound or guarding MUSCULOSKELETAl: Moves all extremities. No clubbing, cyanosis or edema. NEURO: Awake and alert. Following commands, speech normal, no focal deficits. Sensation intact to light sensation to the bilateral lower extremities. Unable to stand due to weakness in the legs. SKIN:: Warm, dry. No rashes lesions or abrasions PSYCHIATRIC: Normal affect/mood, Course Vital Signs Vital signs: Vital Signs Temperature 98.1 F 03/02/25 14:02 Pulse Rate 78 03/02/25 14:02 Respiratory Rate 20 03/02/25 14:02 Blood Pressure 124/62 03/02/25 14:02 Pulse Oximetry 98 03/02/25 14:02 Oxygen Delivery Room Air 03/02/25 14:02 Temperature 98.1 F 03/02/25 14:02 Pulse Rate 77 03/02/25 19:31 Respiratory Rate 16 03/02/25 19:31 Blood Pressure 111/57 L 03/02/25 19:31 Pulse Oximetry 99 03/02/25 19:31 Oxygen Delivery Room Air 03/02/25 14:02 MDM - Extremity (Nontraumatic) MDM Narrative Medical decision making narrative: 59-year-old female Presenting for weakness to her bilateral lower extremities. On initial evaluation patient was in no acute distress afebrile, hemodynamic stable. Differentials include but are not limited to: Cauda equina, epidural abscess sciatica, transverse myelitis. Given possibility of cauda equina, stat MRI and lumbar spine was obtained. Notable exam findings: Intact strength to flexion of the bilateral hips. Loss of strength to flexion of the right ankle. 2/4 reflexes to the bilateral patellar reflex, unable to obtain Achilles. Subjective numbness throughout the bilateral lower extremities I personally reviewed the patient's lab result. Notable lab findings: CBC and CMP were without significant abnormalities. ESR and CRP negative. I personally reviewed the patient's images and interpret as follows: MRI lumbar spine showed no evidence of cauda equina or epidural abscess. Patient continued to have weakness to her bilateral lower extremities that she was unable to walk. She was also having difficulty urinating and had a postvoid residual of 250. She was given 10 mg Decadron for this. I did discuss the case with on-call Neurosurgery, Dr. Yepez, who reviewed the MRI images and states that there was no indication for surgical intervention this time. However, since patient is unable to walk, she will be admitted for further evaluation and observation. Case was discussed with hospitalist who will admit the patient. Lab Data 03/02/25 15:36 03/02/25 15:36 Labs: Lab Results 03/02/25 Range/Units 15:36 WBC 4.9 (4.5-10.0) K/mm3 RBC 3.89 L (4.2-5.4) M/mm3 Hgb 12.2 (12.0-15.0) g/dL Hct 36.6 L (37.0-47.0) % MCV 94.1 (80-100) fl MCH 31.4 (26-34) pg MCHC 33.3 (32-36) g/dl RDW 12.6 (11.5-14.5) % Plt Count 262 (150-375) k/mm3 MPV 8.7 (7.4-10.4) fl Immature Gran % (Auto) 0.2 (0-0.5) % Neut % (Auto) 54.9 (45.5-73.1) % Lymph % (Auto) 27.4 (18.3-44.2) % [place] % (Auto) 11.8 H (2.6-8.5) % Eos % (Auto) 4.9 H (0-4.4) % Baso % (Auto) 0.8 (0.2-1.2) % Lymph # (Auto) 1.35 (0.9-3.2) K/mm3 [place] # (Auto) 0.6 (0.1-0.6) K/mm3 Eos # (Auto) 0.2 (0-0.3) K/mm3 Baso # (Auto) 0.0 (0.0-0.1) K/mm3 Abs Immat Gran (auto) 0.01 (0.00-0.031) K/mm3 Absolute Neuts (auto) 2.7 (1.3-6.7) K/mm3 Absolute Nucleated RBC 0.000 (0.0-0.012) K/mm3 Nucleated RBC % 0.0 (0.0-0.2) % ESR 12 (0-20) mm/hr Sodium 134 L (137-145) mmol/L Potassium 3.7 (3.4-5.0) mmol/L Chloride 105 (98-107) mmol/L Carbon Dioxide 25 (22-30) mmol/L Anion Gap 4 (4-12) mmol/L BUN 25 H D (7-17) mg/dL Creatinine 0.86 (0.7-1.0) mg/dL Estim Creat Clear Calc 63 ml/min Estimated GFR > 60 (59 - ) Glucose 114 H (65-110) mg/dL Lactic Acid 0.9 (0.7-2.0) mmol/L Calcium 8.1 L (8.4-10.2) mg/dL Total Bilirubin 0.3 (0.2-1.3) mg/dL AST 33 (14-36) U/L ALT 19 (6-35) U/L Alkaline Phosphatase 89 (38-126) U/L C-Reactive Protein < 0.5 (<1.0) mg/dL Total Protein 6.3 (6.3-8.2) g/dL Albumin 3.7 (3.5-5.1) g/dL Imaging Data Radiologist's impression: Impressions Lumbar Spine MRI 03/02/25 16:39 IMPRESSION: Degenerative changes detailed above Discharge Plan Discharge Clinical Impression: Bilateral leg weakness, Acute urinary retention Patient Disposition: Still a Patient Condition: Stable
[2025-03-02 16:00] LABS: Alanine Aminotransferase 19 U/L (6-35); Albumin Level 3.7 g/dL (3.5-5.1); Alkaline Phosphatase 89 U/L (38-126); Anion Gap 4 mmol/L (4-12); Aspartate Amino Transferase 33 U/L (14-36); Bilirubin,Total 0.3 mg/dL (0.2-1.3); Blood Urea Nitrogen 25 mg/dL (7-17); CRP < 0.5 mg/dL (<1.0); Calcium 8.1 mg/dL (8.4-10.2); Carbon Dioxide 25 mmol/L (22-30); Chloride 105 mmol/L (98-107); Estimated CRCL calculation 63 ml/min; Estimated Glomerular Filt Rate > 60; Glucose 114 mg/dL (65-110); Potassium 3.7 mmol/L (3.4-5.0); Sodium 134 mmol/L (137-145); Total Protein 6.3 g/dL (6.3-8.2)
[2025-03-02] MEDS: dexAMETHasone SOD PHOS INJ 10 MG/ML 1 ML VIAL IV PUSH (17:59)
[2025-03-02 18:01] VITALS: BP 119/61; PULSE 79; RESP 16; O2SAT 100
--- NOTE | 2025-03-02 18:07 | P.PNNEUSUR_ITS ---
Progress Note: A&P Assessment and Plan (1) Leg numbness: Code(s): R20.0 - Anesthesia of skin Status: Acute Plan No acute neurosurgical issues. Can follow-up in Neurosurgery clinic. Recommend PT/OT evals. Subjective Date/time seen: 03/02/25 18:07 Interval history: Called by ED. Spoke to ER MD about patient. Reviewed MRI Objective Data Vital Signs Vital Signs: Vital Signs - 24 hr 03/02/25 14:02 03/02/25 18:01 Temperature 36.7 C Pulse Rate 78 79 Respiratory Rate 20 16 Blood Pressure 124/62 119/61 Pulse Oximetry 98 100 Oxygen Delivery Room Air Meds/Results Radiology Results: ITS Impressions Lumbar Spine MRI 03/02/25 16:39 IMPRESSION: Degenerative changes detailed above Labs Labs: Laboratory Results - last 24 hr 03/02/25 15:36 WBC 4.9 RBC 3.89 L Hgb 12.2 Hct 36.6 L MCV 94.1 MCH 31.4 MCHC 33.3 RDW 12.6 Plt Count 262 MPV 8.7 Immature Gran % (Auto) 0.2 Neut % (Auto) 54.9 Lymph % (Auto) 27.4 [place] % (Auto) 11.8 H Eos % (Auto) 4.9 H Baso % (Auto) 0.8 Lymph # (Auto) 1.35 [place] # (Auto) 0.6 Eos # (Auto) 0.2 Baso # (Auto) 0.0 Abs Immat Gran (auto) 0.01 Absolute Neuts (auto) 2.7 Absolute Nucleated RBC 0.000 Nucleated RBC % 0.0 ESR 12 Sodium 134 L Potassium 3.7 Chloride 105 Carbon Dioxide 25 Anion Gap 4 BUN 25 H D Creatinine 0.86 Estim Creat Clear Calc 63 Estimated GFR > 60 Glucose 114 H Lactic Acid 0.9 Calcium 8.1 L Total Bilirubin 0.3 AST 33 ALT 19 Alkaline Phosphatase 89 C-Reactive Protein < 0.5 Total Protein 6.3 Albumin 3.7 Imaging My impression: No significant canal stenosis. Moderate foraminal stenosis at L4/5 and L5/S1. Distal cord appears normal. Minimal anterolithesis L5/S1 with likely pars defects
--- NOTE | 2025-03-02 19:22 | P.HP_ITS ---
H&P: HPI History of Present Illness Date/Time: 03/02/25 19:22 Chief Complaint: Tingling and weakness of lower extremities Narrative: 59-year-old female history of malignant melanoma, history DVT hyperlipidemia, GE RD and hypertension presents the hospital with tingling of lower extremities. Patient states that numbness started in her right foot and progressed up her right leg and then went up her left leg. She denies saddle anesthesia, or incontinence of bowel or bladder. She states due to the tingling and weakness of lower extremity she is unable walk. Lab work in the ED shows sodium 134, BUN of 25, glucose of 114, calcium of 8.1, CTA head neck with no acute process. MRI would degenerative changes no acute process. Patient was given steroids in the emergency room for possible spinal cord inflammation. Patient has been seen by Neurosurgery and recommending PT OT and outpatient follow-up. Patient with ascending weakness that has progressed since she left the emergency room now unable to void, lower extremities with decreased reflexes and spastic, no signs of respiratory distress or complaints shortness of breath. Due to possibility of Guillain-[place] in respiratory failure will send the patient to ICU ICU has accepted. Neurology consulted Review of Systems Review of Systems: 12 systems were reviewed and are negativ e except for as per HPI. [facility] Past Medical History Medical History (Updated 03/02/25 @ 19:57 by Samuel Bridges DO) Malignant melanoma of face Hyperlipidemia Gastroesophageal reflux disease Benign essential hypertension Atrophic vaginitis Uterine fibroid Surgical History Surgical History History of 2 sections History of vaginal hysterectomy History of carpal tunnel surgery History of cholecystectomy History of tubal ligation Family History Family History Father Hypertension Cerebrovascular accident Family history of diabetes mellitus in first degree relative Diabetes mellitus Mother Carcinoma of colon Family history of heart disease in male family member before age 55 Social History Social History Social History: Surrogate medical decision maker: Nabeel Earl, spouse. Code status: Full code. Smoking status: Never smoker Second hand tobacco smoke exposure: Yes Alcohol intake: never Substance use: never Substance use type: does not use Do You Feel Safe in your Home?: Yes Lack of Transportation: No Lack of Food: Never True Current Housing: I Have Housing Concerned About Future Housing: No Difficulty Paying Gas/Electric Bills: No Difficulty Paying for Meds: No Currently Unemployed: No Education: High School Diploma/GED Difficulty w/ Childcare or Family Care: No Spiritual care concerns: No Meds Home Medications and Allergies Home Medications ?Medication ?Instructions ?Recorded ?Confirmed ?Type glucosamine sulfate 500 mg tablet 1,000 mg PO DAILY 12/31/24 History (Glucosamine) clotrimazole 10 mg mami 10 mg mucous membrane .COMPL EX #90 12/10/23 12/31/24 Rx tabs fluoxetine 40 mg capsule 40 mg PO DAILY #90 caps 07/1012/31/24 Rx phentermine 37.5 mg tablet 37.5 mg PO DAILY #90 tabs 0 10/01/24 12/31/24 Rx topiramate 25 mg tablet 25 mg PO TID #90 tabs 12/31/24 Rx lisinopril 20 1 tablet PO DAILY #90 tabs 0 12/26/24 12/31/24 Rx mg-hydrochlorothiazide 12.5 mg tablet duloxetine 60 mg capsule,delayed 60 mg PO BID #180 cap s 01/01/25 Rx release omeprazole 40 mg capsule,delayed 40 mg PO DAILY #90 ca ps 01/22/25 Rx release Allergies Allergy/AdvReac Type Severity Reaction Status Date / Time No Known Drug Allergies Allergy Unknown NONE Verified 03/02/25 20:25 Vital Signs Vital Signs - 24 hr 03/02/25 14:02 03/02/25 18:01 Temperature 98.1 F Pulse Rate 78 79 Respiratory Rate 20 16 Blood Pressure 124/62 119/61 Pulse Oximetry 98 100 Oxygen Delivery Room Air Exam Narrative: General: well appearing, appears stated age. HEENT: normocephalic, atraumatic. Mucous membranes moist. EOMI, PERRLA, bilateral sclera anicteric, no conjunctival injection. Neck supple without JVD, lymphadenopathy, or bruit. Respiratory: clear bilaterally. No rales/rhonic/wheezes. No signs of respiratory distress Cardiovascular: Regular rate and rhythm, normal S1-S2. No murmurs, rubs, or clicks. PMI is nondisplaced, capillary refill less than 3 second. Abdomen: Soft, round, no pulsatile masses, nondistended and nontender. No rebound, no guarding. Bowel sounds present to all four quadrants. No high pitch or tinkling sounds, resonant to percussion. Extremities: Spastic lower extremities, decrease tendon reflexes, flaccid right leg, numbness up to umbilicus Neuro: Alert and orientated x 4. PERRLA. Cranial nerves 2-12 intact without focal deficit. Skin: Warm, dry, and intact, without rash, erythema, or lesion. Psych: pleasant, cooperative, normal speech, normal affect, no hallucinations, no dysarthia Domingo catheter H&P: Results Labs Labs: Short CBC 03/02/25 Range/Units 15:36 WBC 4.9 (4.5-10.0) K/mm3 Hgb 12.2 (12.0-15.0) g/dL Hct 36.6 L (37.0-47.0) % Plt Count 262 (150-375) k/mm3 BMP 03/02/25 15:36 Sodium 134 L Potassium 3.7 Chloride 105 Carbon Dioxide 25 BUN 25 H D Creatinine 0.86 Glucose 114 H Calcium 8.1 L Liver Function 03/02/25 Range/Units 15:36 Total Bilirubin 0.3 (0.2-1.3) mg/dL AST 33 (14-36) U/L ALT 19 (6-35) U/L Alkaline Phosphatase 89 (38-126) U/L Albumin 3.7 (3.5-5.1) g/dL Assessment and Plan Assessment and plan (1) Leg numbness: Code(s): R20.0 - Anesthesia of skin Status: Acute Assessment and Plan: And weakness Seen by Neurosurgery recommending PT and OT outpatient follow-up MRI lumbar spine without compression Gabapentin Decadron and methylprednisone given in the emergency room PT OT UA pending Transferring to ICU due to possible Guillain-[place] and respiratory failure, ICU attending has accepted Versed for muscle spasms Domingo catheter due to inability to void Flomax NPO midnight for possible LP Neurology consulted Stress ulcer prophylaxis (2) Benign essential hypertension: Code(s): I10 - Essential (primary) hypertension Status: Chronic Assessment and Plan: Waiting for nursing to do home med rec Patient is on lisinopril hydrochlorothiazide (3) Gastro-esophageal reflux disease with esophagitis: Code(s): K21.00 - Gastro-esophageal reflux disease with esophagitis, without bleeding Status: Acute Assessment and Plan: IV Pepcid Quality VTE Prophylaxis VTE prophylaxis: mechanical ordered and pharmacologic ordered Hospitalist MIPS Advance Care Plan I have confirmed that the patient's Advanced Care Plan is present, code status is documented, or surrogate decision maker is listed in patient medical record.: Yes Medication Reconciliation I have utilized all available resources to obtain, update and review the patients current medications (includes all prescriptions, OTC, herbals, cannabis, and nutritional supplements).: Yes
[2025-03-02 19:31] VITALS: BP 111/57; PULSE 77; RESP 16; O2SAT 99
--- NOTE | 2025-03-02 19:34 | WPCEDHO ---
ED Hand Off Checklist All vitals saved: Yes IV Site documented: Yes All med administrations documented: Yes Triage Note Triage Note Pt to ed co saying I can not 03/02/25 14:02 feel my legs, Pt said all her sudden her both legs become numb and can not feel them and can walk. Pt is able move both legs and able to feel that nurse cold hands and is able to feel pain. Pt said her legs feels very light and like in space. Pt is al reporting lower back pain. Allergies No Known Drug Allergies Allergy (Unknown, Verified 03/02/25 14:09) NONE Current Diagnoses Anesthesia of skin (03/02/25) Family History (Last Reviewed 03/02/25 @ 15:45 by Samuel Bridges DO) Father Hypertension Cerebrovascular accident Family history of diabetes mellitus in first degree relative Diabetes mellitus Mother Carcinoma of colon Family history of heart disease in male family member before age 55 Administered/Completed Medications Discontinued Medications Cyclobenzaprine HCl (Cyclobenzaprine Hcl 10 Mg Tablet) 10 mg PO ONCE ONE Stop: 03/02/25 15:29 Last Admin: 03/02/25 15:41 Dose: 10 mg Documented By: KANDI Dexamethasone Sodium Phosphate (Dexamethasone Sod Phos Inj 10 Mg/Ml 1 Ml Vial) 10 mg IV PUSH ONCE ONE Stop: 03/02/25 17:52 Last Admin: 03/02/25 17:59 Dose: 10 mg Documented By: KANDI Methylprednisolone Sodium Succinate (Methylprednisolone Sod Succ 125 Mg Vial) 125 mg IV PUSH ONCE STA Stop: 03/02/25 17:31 Last Admin: 03/02/25 18:02 Dose: Not Given Documented By: LEV Non-Admin Reason: Order Discontinued Morphine Sulfate (Morphine Sulfate (*Crx) 4 Mg/Ml Inj) 4 mg IV PUSH ONCE STA Stop: 03/02/25 15:29 Last Admin: 03/02/25 15:41 Dose: 4 mg Documented By: KANDI Interventions/Assessments IV / Saline Lock, Insert Start: 03/02/25 15:38 Freq: Status: Active Protocol: Document 03/02/25 15:38 LEV (Rec: 03/02/25 15:39 LEV [id number]) IV Assessment Peripheral Access Left Antecubital IV Catheter Access Initiated IV Insertion Date 03/02/25 IV Insertion Time 15:38 Catheter Gauge 20 IV Insertion 1 Attempts Ultrasound Used for No Placement IV Site Assessment WNL IV Care and WNL Maintenance Last Vital Signs Temperature 98.1 F 03/02/25 14:02 Pulse Rate 77 03/02/25 19:31 Respiratory Rate 16 03/02/25 19:31 Pulse Oximetry 99 03/02/25 19:31 Blood Pressure 111/57 L 03/02/25 19:31 Blood Pressure Mean 75 03/02/25 19:31 Blood Pressure Position Supine 03/02/25 18:01 Oxygen Delivery Room Air 03/02/25 14:02 Weight 82.5 kg 03/02/25 14:02 Last Result - Abnormals Only RBC 3.89 M/mm3 (4.2-5.4) L 03/02/25 15:36 Hct 36.6 % (37.0-47.0) L 03/02/25 15:36 [place] % (Auto) 11.8 % (2.6-8.5) H 03/02/25 15:36 Eos % (Auto) 4.9 % (0-4.4) H 03/02/25 15:36 Sodium 134 mmol/L (137-145) L 03/02/25 15:36 BUN 25 mg/dL (7-17) H D 03/02/25 15:36 Glucose 114 mg/dL (65-110) H 03/02/25 15:36 Calcium 8.1 mg/dL (8.4-10.2) L 03/02/25 15:36 Most Recent Suicide Severity Rating Suicide Severity Rating NO RISK INDICATED 03/02/25 14:02
[2025-03-02 19:56] VITALS: BP 117/93; PULSE 71; RESP 18; O2SAT 99
[2025-03-02 20:09] VITALS: BMI 33.3
--- NOTE | 2025-03-02 20:24 | ADMGEN ---
This patient, Tomasa Dukes, was admitted to Medical Room 341-01. Patient/family oriented to hospital policies and general routines including ID bracelet, bed and alarms, visiting hours, pain management, procedures, bathroom and other care routines, personal items, smoking policy, room service/diet, and visiting hours. Information on how to activate the Rapid Response Team has been discussed. Patient/Family are encouraged to report perceived risks to care and to ask questions if they do not understand what they are told or what they should do.
[2025-03-02 20:47] VITALS: BP 132/68; PULSE 66; RESP 20; TEMP 36.2; O2SAT 98
[2025-03-02] MEDS: diazePAM INJ (*CRX) 10 MG/2 ML SYRINGE 2.5 MG IV PUSH (22:42)
[2025-03-02 22:52] LABS: Add Urine Microscopic? YES; Appearance Urine Cloudy (Clear); Glucose Urine UA Negative (Negative); Leukocyte Esterase Ur Negative LEU/UL (Negative); Nitrate Urine Negative (Negative); Non Pathogenic Casts 0-2; Specific Grav Ur 1.037 (1.001-1.035)
--- NOTE | 2025-03-02 23:54 | PC.NURSE ---
Patient transferred to ICU at this time. Report given to Chelsea prior to transfer.
[2025-03-03] VITALS (22 sets, daily range): BP systolic 109–155; BP diastolic 63–93; PULSE 65–83; RESP 13–21; TEMP 36.6–37; O2SAT 96–100
--- NOTE | 2025-03-03 00:21 | PC.NURSE ---
This patient, Tomasa Dukes, was received from [facility] on 03/02/25 at [id number]. Report received from ROSMERY Grande at [id number]. Patient/family oriented to unit policies and routines.
[2025-03-03] MEDS: HYDROcodone/acetaminophen (*CRX) 10-325 MG TABLET 1 TAB PO ×3 (00:33→16:57)
[2025-03-03] MEDS: diazePAM INJ (*CRX) 10 MG/2 ML SYRINGE 2.5 MG IV PUSH ×3 (00:34→22:10)
[2025-03-03] MEDS: ONDANSETRON INJ 4 MG/2 ML VIAL IV PUSH (00:34)
[2025-03-03] MEDS: KETOROLAC 30 MG/ML VIAL (*BKC) IV PUSH (03:28)
[2025-03-03 04:44] LABS: Hematocrit 37.5 % (37.0-47.0); Hemoglobin 12.4 g/dL (12.0-15.0); Immature Granulocyte Percent A 0.2 % (0-0.5); Lymphocytes Absolute Auto 0.95 K/mm3 (0.9-3.2); Mean Corpuscular HGB Conc 33.1 g/dl (32-36); Mean Corpuscular Hemoglobin 30.9 pg (26-34); Mean Corpuscular Volume 93.5 fl (80-100); Nucleated Red Blood Cells Absolute Auto 0.000 K/mm3 (0.0-0.012); Nucleated Red Blood Cells Perc 0.0 % (0.0-0.2); Platelet Count Result 275 k/mm3 (150-375); Red Blood Count 4.01 M/mm3 (4.2-5.4); White Blood Count 4.7 K/mm3 (4.5-10.0)
[2025-03-03 05:13] LABS: Anion Gap 5 mmol/L (4-12); Blood Urea Nitrogen 18 mg/dL (7-17); Calcium 8.5 mg/dL (8.4-10.2); Carbon Dioxide 26 mmol/L (22-30); Chloride 103 mmol/L (98-107); Estimated CRCL calculation 66 ml/min; Estimated Glomerular Filt Rate > 60; Glucose 125 mg/dL (65-110); Potassium 3.9 mmol/L (3.4-5.0); Sodium 134 mmol/L (137-145)
[2025-03-03 07:19] LABS: MRSA (PCR) NOT DETECTED (NOT DETECTE)
--- NOTE | 2025-03-03 08:27 | WPDNEURCNPN ---
Assessment and Plan Assessment and plan (1) Back pain: Code(s): M54.9 - Dorsalgia, unspecified Status: Acute (2) Lumbar spondylosis: Code(s): M47.816 - Spondylosis without myelopathy or radiculopathy, lumbar region Status: Acute (3) Bilateral leg weakness: Code(s): R29.898 - Other symptoms and signs involving the musculoskeletal system Status: Acute (4) Muscle weakness of lower extremity: Code(s): M62.81 - Muscle weakness (generalized) Status: Acute Plan lumbar spondylosis confirmed by the MRI of the spine as well, neurosurgical consultation has already been obtained, she will be scheduled for the EMG nerve conduction study of the lower extremities while she is being followed by the neurosurgical service as an outpatient and head and neck CTA has already been documented as normal Consult date: 03/03/25 HPI: Tomasa Dukes is a 59 year old female Admitted to the hospital for the complaints of lower extremity weakness. Patient reported that for the last few hours she had been experiencing weakness in the lower extremities which started in her right foot radiated up to her right lower extremity and then into her left lower extremity in addition to the complaints of back pain. She gave no history of saddle anaesthesia, bowel or bladder incontinence. Her home medications included glucosamine 1000mg daily, she is reported to be not allergic to any medication, she does have ongoing history of 1. Hyperlipidemia 2. GERD 3. Hypertension 4. Malignant melanoma of face and 5. Uterine fibroid with atrophy vaginitis. in the past she has undergone carpal tunnel surgery, cholecystectomy, and x2 in addition to vaginal hysterectomy. She is never a smoker but currently has history of alcohol intake. On initial exam in the emergency room her vital signs were normal, she was unable to stand due to weakness in her lower extremities but otherwise exam was fairly normal. CBC revealed no leukocytosis, BMP with sodium 134 and BUN 25, mast scan was normal, CT scan of the lumbar spine revealed only degenerative changes and head and neck CTA documented no critical stenosis occlusion or aneurysm. She has had MRI of cervical spine in January 09 which documented moderate degenerative spondylosis worst at C4-5 with mild to moderate canal stenosis and flattening of the ventral cord and lumbar spine MRI in December was again compatible with spondylosis. As per the neurosurgical note physical therapy and occupation therapy was ordered and patient to follow in the neurosurgery clinic. Review of Systems Review of Systems: All systems reviewed & are unremarkable except as noted in HPI and below PMFSH Past Medical History Medical History (Updated 03/03/25 @ 10:35 by Aquiles Edwards MD) Lumbar spondylosis Malignant melanoma of face Hyperlipidemia Gastroesophageal reflux disease Benign essential hypertension Atrophic vaginitis Uterine fibroid Surgical History Surgical History History of 2 sections History of vaginal hysterectomy History of carpal tunnel surgery History of cholecystectomy History of tubal ligation Family History Family History Father Hypertension Cerebrovascular accident Family history of diabetes mellitus in first degree relative Diabetes mellitus Mother Carcinoma of colon Family history of heart disease in male family member before age 55 Social History Social History Social History: Surrogate medical decision maker: Nabeel Earl, spouse. Code status: Full code. Smoking status: Never smoker Second hand tobacco smoke exposure: Yes Alcohol intake: never Substance use: never Substance use type: does not use Do You Feel Safe in your Home?: Yes Lack of Transportation: No Lack of Food: Never True Current Housing: I Have Housing Concerned About Future Housing: No Difficulty Paying Gas/Electric Bills: No Difficulty Paying for Meds: No Currently Unemployed: No Education: High School Diploma/GED Difficulty w/ Childcare or Family Care: No Spiritual care concerns: No Meds Home Medications and Allergies Home Medications ?Medication ?Instructions ?Recorded ?Confirmed ?Type glucosamine sulfate 500 mg tablet 1,000 mg PO DAILY 11/03/20 03/02/25 History (Glucosamine) clotrimazole 10 mg mami 10 mg mucous membrane .COMPLEX #90 12/10/23 03/02/25 Rx tabs fluoxetine 40 mg capsule 40 mg PO DAILY #90 caps 09/18/24 03/02/25 Rx phentermine 37.5 mg tablet 37.5 mg PO DAILY #90 tabs 10/01/24 03/02/25 Rx topiramate 25 mg tablet 25 mg PO TID #90 tabs 12/24/24 03/02/25 Rx lisinopril 20 1 tablet PO DAILY #90 tabs 12/26/24 03/02/25 Rx mg-hydrochlorothiazide 12.5 mg tablet duloxetine 60 mg capsule,delayed 60 mg PO BID #180 caps 01/01/25 03/02/25 Rx release omeprazole 40 mg capsule,delayed 40 mg PO DAILY #90 caps 01/22/25 03/02/25 Rx release celecoxib 200 mg capsule 200 mg PO HS 03/02/25 03/02/25 History hydroxychloroquine 200 mg tablet 200 mg PO BID 03/02/25 03/02/25 History Allergies Allergy/AdvReac Type Severity Reaction Status Date / Time No Known Drug Allergies Allergy Unknown NONE Verified 03/02/25 20:25 Vital Signs Vital Signs - 24 hr 03/02/25 14:02 03/02/25 18:01 03/02/25 19:31 Temperature 36.7 C Pulse Rate 78 79 77 Respiratory Rate 20 16 16 Blood Pressure 124/62 119/61 111/57 L Pulse Oximetry 98 100 99 Oxygen Delivery Room Air 03/02/25 19:56 03/02/25 20:47 03/03/25 00:00 Temperature 36.2 C L 36.9 C Pulse Rate 71 66 69 Respiratory Rate 18 20 15 Blood Pressure 117/93 H 132/68 138/72 Pulse Oximetry 99 98 99 Oxygen Delivery 03/03/25 00:00 03/03/25 00:30 03/03/25 01:00 Temperature 36.9 C Pulse Rate 72 72 Respiratory Rate 13 Blood Pressure 129/65 Pulse Oximetry 98 Oxygen Delivery Room Air 03/03/25 02:00 03/03/25 02:00 03/03/25 03:00 Temperature 37.0 C Pulse Rate 80 76 78 Respiratory Rate 20 18 Blood Pressure 122/93 H 128/68 Pulse Oximetry 96 99 Oxygen Delivery 03/03/25 04:00 03/03/25 04:00 03/03/25 04:15 Temperature Pulse Rate 81 72 Respiratory Rate 15 Blood Pressure 144/93 H Pulse Oximetry 99 Oxygen Delivery Room Air 03/03/25 05:00 03/03/25 06:00 03/03/25 06:00 Temperature 37.0 C Pulse Rate 73 70 70 Respiratory Rate 18 16 Blood Pressure 135/71 145/80 H Pulse Oximetry 99 100 Oxygen Delivery Exam Narrative: Exam today revealed her to be awake alert cooperative in no obvious acute distress, head normocephalic with no cranial bruits, neck supple with no meningeal signs no cervical bruit no thyromegaly no lymphadenopathy, heart regular with no murmur, lungs clear to auscultation with no rhonchi or crepitations, abdomen is soft nontender with normal bowel sounds, neurologically she is awake alert she knows that she was in the ER intensive care where she has been transferred from the regular floor, his speech normal, pupils round regular feels the vision full extraocular movements full with no nystagmus facial sensation intact face symmetrical tongue midline uvula midline motor examination of the upper extremities revealed him to have normal strength and tone Mon with no drift against gravity, and the deep tendon reflexes 1+ at the biceps triceps, motor examination lower extremities revealed her to have inability to dorsiflex her right foot but able to do so on the left and also some decreased on plantar flexion Results Labs 03/03/25 03:55 03/03/25 03:55 Labs: Short CBC 03/02/25 03/03/25 Range/Units 15:36 03:55 WBC 4.9 4.7 (4.5-10.0) K/mm3 Hgb 12.2 12.4 (12.0-15.0) g/dL Hct 36.6 L 37.5 (37.0-47.0) % Plt Count 262 275 (150-375) k/mm3 BMP 03/02/25 03/03/25 15:36 03:55 Sodium 134 L 134 L Potassium 3.7 3.9 Chloride 105 103 Carbon Dioxide 25 26 BUN 25 H D 18 H Creatinine 0.86 0.82 Glucose 114 H 125 H Calcium 8.1 L 8.5 Liver Function 03/02/25 Range/Units 15:36 Total Bilirubin 0.3 (0.2-1.3) mg/dL AST 33 (14-36) U/L ALT 19 (6-35) U/L Alkaline Phosphatase 89 (38-126) U/L Albumin 3.7 (3.5-5.1) g/dL Urine 03/02/25 Range/Units 22:35 Urine Color Yellow (Yellow) Urine Appearance Cloudy H (Clear) Urine pH 8.0 (5.0-9.0) Ur Specific [place] 1.037 H (1.001-1.035) Urine Protein Negative (Negative) mg/dL Urine Glucose (UA) Negative (Negative) mg/dL
--- NOTE | 2025-03-03 08:47 | WPDCNINT ---
Assessment and Plan Assessment and plan (1) Lumbar radiculopathy: Code(s): M54.16 - Radiculopathy, lumbar region Status: Acute Assessment and Plan: 59-year-old female with history of degenerative joint disease of lumbar spine and chronic symptoms over last more than a year presented with acute worsening of back pain and numbness and weakness of both legs. Right worse than left along with right footdrop. MRI done in ER L5-S1: Circumferential bulging of the disc with ligamentum flavum and facet hypertrophy. Moderate to severe bilateral foramina and lateral recess stenosis with moderate canal stenosis. L4-5: Circumferential bulging of the disc with ligamentum flavum and facet hypertrophy. Moderate to severe bilateral foramina and lateral recess stenosis, mild canal stenosis. L3-4: Circumferential bulging of the disc with moderate ligamentum flavum and facet hypertrophy. Moderate bilateral foramina stenosis, no lateral recess or canal stenosis. Neurosurgery consulted with no further recommendations P.r.n. analgesic and muscle relaxant Neurology has been consulted and will evaluate the patient. Will defer further evaluation and management to Neurology (2) Leg numbness: Code(s): R20.0 - Anesthesia of skin Status: Acute (3) Gastroesophageal reflux disease: Code(s): K21.9 - Gastro-esophageal reflux disease without esophagitis Status: Acute Assessment and Plan: Continue home PPI (4) Back pain: Code(s): M54.9 - Dorsalgia, unspecified Status: Acute (5) Benign essential hypertension: Code(s): I10 - Essential (primary) hypertension Status: Chronic Assessment and Plan: Continue home medication Plan DVT prophylaxis -Lovenox Stress ulcer prophylaxis - Nutrition -currently NPO Code Status - Full Code Transfer out of ICU today 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 Patient states that since last year she has had severe back pain and pain radiating to her legs along with occasional numbness and paresthesia of the legs. Right more than left. She had an MRI in December of last year. Which showed degenerative joint disease of lumbar spine along with spondylosis. She states that she started seeing a chiropractor and was visiting 2-3 times every week and would have temporary benefit. This summer she quit going to the chiropractor. She states that she was otherwise able to ambulate but does have chronic back pain. She does feel better whenever she uses a grocery cart in the grocery store. She states she takes p.r.n. ibuprofen and other medication but no opioids for her back pain. She states she did not had any viral or infectious disease in last few weeks. She denies any cough dysuria hematuria shortness of breath fever. She states that yesterday after docking her grandchild in the child seat in the car she started feeling weak in right leg and was unable to stand. She felt numb. Symptoms started on the right side but she later felt them on the left side too. She states she was unable to stand up and had 10 out 10 back pain. Hence she presented to the ER. Since then she feels that she is unable to raise her right leg as compared to the left. She year right foot has drop he is unable to lift her right foot. She feels numb and tingling in both legs. She denies any loss of bowel bladder. She feels that numbness and tingling goes up to her hips on both sides. All other systems were reviewed and were negative. Review of Systems Review of Systems: All systems reviewed & are unremarkable except as noted in HPI and below (HPI) [facility] Past Medical History Medical History (Updated 03/03/25 @ 08:56 by Ivan Rushing MD) Lumbar spondylosis Malignant melanoma of face Hyperlipidemia Gastroesophageal reflux disease Benign essential hypertension Atrophic vaginitis Uterine fibroid Surgical History Surgical History History of 2 sections History of vaginal hysterectomy History of carpal tunnel surgery History of cholecystectomy History of tubal ligation Family History Family History Father Hypertension Cerebrovascular accident Family history of diabetes mellitus in first degree relative Diabetes mellitus Mother Carcinoma of colon Family history of heart disease in male family member before age 55 Social History Social History Social History: Surrogate medical decision maker: Nabeelamaris Earl, spouse. Code status: Full code. Smoking status: Never smoker Second hand tobacco smoke exposure: Yes Alcohol intake: never Substance use: never Substance use type: does not use Do You Feel Safe in your Home?: Yes Lack of Transportation: No Lack of Food: Never True Current Housing: I Have Housing Concerned About Future Housing: No Difficulty Paying Gas/Electric Bills: No Difficulty Paying for Meds: No Currently Unemployed: No Education: High School Diploma/GED Difficulty w/ Childcare or Family Care: No Spiritual care concerns: No Meds Home Medications and Allergies Home Medications ?Medication ?Instructions ?Recorded ?Confirmed ?Type glucosamine sulfate 500 mg tablet 1,000 mg PO DAILY 11/03/20 03/02/25 History (Glucosamine) clotrimazole 10 mg mami 10 mg mucous membrane .COMPLEX #90 12/10/23 03/02/25 Rx tabs fluoxetine 40 mg capsule 40 mg PO DAILY #90 caps 09/18/24 03/02/25 Rx phentermine 37.5 mg tablet 37.5 mg PO DAILY #90 tabs 10/01/24 03/02/25 Rx topiramate 25 mg tablet 25 mg PO TID #90 tabs 12/24/24 03/02/25 Rx lisinopril 20 1 tablet PO DAILY #90 tabs 12/26/24 03/02/25 Rx mg-hydrochlorothiazide 12.5 mg tablet duloxetine 60 mg capsule,delayed 60 mg PO BID #180 caps 01/01/25 03/02/25 Rx release omeprazole 40 mg capsule,delayed 40 mg PO DAILY #90 caps 01/22/25 03/02/25 Rx release celecoxib 200 mg capsule 200 mg PO HS 03/02/25 03/02/25 History hydroxychloroquine 200 mg tablet 200 mg PO BID 03/02/25 03/02/25 History Allergies Allergy/AdvReac Type Severity Reaction Status Date / Time No Known Drug Allergies Allergy Unknown NONE Verified 03/02/25 20:25 Vital Signs Vital Signs - 24 hr 03/02/25 14:02 03/02/25 18:01 03/02/25 19:31 Temperature 36.7 C Pulse Rate 78 79 77 Respiratory Rate 20 16 16 Blood Pressure 124/62 119/61 111/57 L Pulse Oximetry 98 100 99 Oxygen Delivery Room Air 03/02/25 19:56 03/02/25 20:47 03/03/25 00:00 Temperature 36.2 C L 36.9 C Pulse Rate 71 66 69 Respiratory Rate 18 20 15 Blood Pressure 117/93 H 132/68 138/72 Pulse Oximetry 99 98 99 Oxygen Delivery 03/03/25 00:00 03/03/25 00:30 03/03/25 01:00 Temperature 36.9 C Pulse Rate 72 72 Respiratory Rate 13 Blood Pressure 129/65 Pulse Oximetry 98 Oxygen Delivery Room Air 03/03/25 02:00 03/03/25 02:00 03/03/25 03:00 Temperature 37.0 C Pulse Rate 80 76 78 Respiratory Rate 20 18 Blood Pressure 122/93 H 128/68 Pulse Oximetry 96 99 Oxygen Delivery 03/03/25 04:00 03/03/25 04:00 03/03/25 04:15 Temperature Pulse Rate 81 72 Respiratory Rate 15 Blood Pressure 144/93 H Pulse Oximetry 99 Oxygen Delivery Room Air 03/03/25 05:00 03/03/25 06:00 03/03/25 06:00 Temperature 37.0 C Pulse Rate 73 70 70 Respiratory Rate 18 16 Blood Pressure 135/71 145/80 H Pulse Oximetry 99 100 Oxygen Delivery Exam Narrative: General: Pt is alert awake and in NAD Lungs/Chest: Trachea central Clear BS B/L, No crackles or wheezing. Cardiac: RRR. Normal S1 S2. No murmurs Circulation: Bilateral dorsalis pedis pulses are palpable, feet are warm Abdomen: Normal bowel sounds.. Soft. NT. ND. Extremities: No clubbing, cyanosis or edema. Warm : Domingo in place Neurologic: Follows commands. AO x3 PERRL. Muscle strength and touch to sensation is normal in both arms and hands. She is able to sense touch in both feet and legs but states it is altered. She is weak in both legs right more than left. She is able to lift her leg on the right side at the hip. She is unable to dorsiflex her right foot to but is able to do on the left foot. Similarly there is a weakness on the plantar flexion of the foot Skin: No Rash Results Labs 03/03/25 03:55 03/03/25 03:55 Labs: Impressions Lumbar Spine MRI 03/02/25 16:39 IMPRESSION: Degenerative changes detailed above Head/Neck CTA 03/02/25 18:49 IMPRESSION: 1. No critical stenosis, occlusion or aneurysm is identified. Short CBC 03/02/25 03/03/25 Range/Units 15:36 03:55 WBC 4.9 4.7 (4.5-10.0) K/mm3 Hgb 12.2 12.4 (12.0-15.0) g/dL Hct 36.6 L 37.5 (37.0-47.0) % Plt Count 262 275 (150-375) k/mm3 BMP 03/02/25 03/03/25 15:36 03:55 Sodium 134 L 134 L Potassium 3.7 3.9 Chloride 105 103 Carbon Dioxide 25 26 BUN 25 H D 18 H Creatinine 0.86 0.82 Glucose 114 H 125 H Calcium 8.1 L 8.5 Liver Function 03/02/25 Range/Units 15:36 Total Bilirubin 0.3 (0.2-1.3) mg/dL AST 33 (14-36) U/L ALT 19 (6-35) U/L Alkaline Phosphatase 89 (38-126) U/L Albumin 3.7 (3.5-5.1) g/dL Urine 03/02/25 Range/Units 22:35 Urine Color Yellow (Yellow) Urine Appearance Cloudy H (Clear) Urine pH 8.0 (5.0-9.0) Ur Specific [place] 1.037 H (1.001-1.035) Urine Protein Negative (Negative) mg/dL Urine Glucose (UA) Negative (Negative) mg/dL Quality VTE Prophylaxis VTE prophylaxis: pharmacologic ordered Hospitalist MIPS Advance Care Plan I have confirmed that the patient's Advanced Care Plan is present, code status is documented, or surrogate decision maker is listed in patient medical record.: Yes Medication Reconciliation I have utilized all available resources to obtain, update and review the patients current medications (includes all prescriptions, OTC, herbals, cannabis, and nutritional supplements).: Yes
[2025-03-03] MEDS: FAMOTIDINE 20 MG/2 ML VIAL IV PUSH (08:49)
[2025-03-03] MEDS: ENOXAPARIN 40 MG/0.4 ML SYRINGE SUB-Q (08:50)
--- NOTE | 2025-03-03 09:21 | P.PNIM_ITS ---
Progress Note: A&P Assessment and Plan (1) Lumbar radiculopathy: Code(s): M54.16 - Radiculopathy, lumbar region Status: Acute (2) Leg numbness: Code(s): R20.0 - Anesthesia of skin Status: Acute (3) Gastroesophageal reflux disease: Code(s): K21.9 - Gastro-esophageal reflux disease without esophagitis Status: Acute (4) Back pain: Code(s): M54.9 - Dorsalgia, unspecified Status: Acute (5) Benign essential hypertension: Code(s): I10 - Essential (primary) hypertension Status: Chronic Plan This is a 59-year-old female who presents to the ED with leg weakness that started few hours prior to presentation. She stated started on right foot and radiated up to her leg and subsequently to her left leg. She also has low back pain however never had leg numbness before. No bowel or bladder incontinence. Due to tingling and weakness of lower extremities she is unable to walk Laboratory workup in ED showed sodium 134 BUN 25 glucose of 114 calcium of 8.1. CTA head and neck with no acute process. MRI lumbar spine with degenerative changes with no acute process. Patient was given steroid in the ER Neurosurgery and neurology has been consulted. 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 Weakness is asymmetric and also has intact knee reflexes does have features of dysautonomia with urinary retention needing Domingo catheter placement. Bladder or bowel dysfunction at onset a sensory level are all atypical for GBS. Lumbar puncture may be planned if progression of the weakness will hold anticoagulation. 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 Complains of lower extremity numbness and weakness right more t cabrera left. Up to the level of umbilicus Review of Systems Review of Systems: All systems reviewed & are unremarkable except as noted in HPI and below Exam Narrative: General: Pt is alert awake and in NAD Lungs/Chest: Trachea central Clear BS B/L, No crackles or wheezing. Cardiac: RRR. Normal S1 S2. No murmurs Circulation: Bilateral dorsalis pedis pulses are palpable, feet are warm Abdomen: Normal bowel sounds.. Soft. NT. ND. Extremities: No clubbing, cyanosis or edema. Warm : Domingo in place Neurologic: Follows commands. AO x3 PERRL. Muscle strength and touch to sensation is normal in both arms and hands. She is able to sense touch in both feet and legs but diminished. She is weak in both legs right more than left. She is able to lift her leg on the right side at the hip. Babinski positive bilaterally Bilateral knee reflexes intact Skin: No Rash Objective Data Vital Signs Vital Signs: Vital Signs - 24 hr 03/02/25 14:02 03/02/25 18:01 03/02/25 19:31 Temperature 98.1 F Pulse Rate 78 79 77 Respiratory Rate 20 16 16 Blood Pressure 124/62 119/61 111/57 L Pulse Oximetry 98 100 99 Oxygen Delivery Room Air 03/02/25 19:56 03/02/25 20:47 03/03/25 00:00 Temperature 97.1 F L 98.5 F Pulse Rate 71 66 69 Respiratory Rate 18 20 15 Blood Pressure 117/93 H 132/68 138/72 Pulse Oximetry 99 98 99 Oxygen Delivery 03/03/25 00:00 03/03/25 00:30 03/03/25 01:00 Temperature 98.5 F Pulse Rate 72 72 Respiratory Rate 13 Blood Pressure 129/65 Pulse Oximetry 98 Oxygen Delivery Room Air 03/03/25 02:00 03/03/25 02:00 03/03/25 03:00 Temperature 98.6 F Pulse Rate 80 76 78 Respiratory Rate 20 18 Blood Pressure 122/93 H 128/68 Pulse Oximetry 96 99 Oxygen Delivery 03/03/25 04:00 03/03/25 04:00 03/03/25 04:15 Temperature Pulse Rate 81 72 Respiratory Rate 15 Blood Pressure 144/93 H Pulse Oximetry 99 Oxygen Delivery Room Air 03/03/25 05:00 03/03/25 06:00 03/03/25 06:00 Temperature 98.6 F Pulse Rate 73 70 70 Respiratory Rate 18 16 Blood Pressure 135/71 145/80 H Pulse Oximetry 99 100 Oxygen Delivery 03/03/25 07:00 03/03/25 08:00 Temperature 98.2 F 98.2 F Pulse Rate 72 69 Respiratory Rate 16 19 Blood Pressure 132/70 135/77 Pulse Oximetry 97 100 Oxygen Delivery Intake/Output Intake/Output: Intake & Output 02/28/25 03/01/25 03/02/25 03/03/25 23:59 23:59 23:59 23:59 Intake Total 50 Output Total 800 650 Balance -800 -600 Meds/Results Medications: Active Medications Generic Name Dose Route Start Last Admin Trade Name Freq PRN Reason Stop Dose Admin Acetaminophen 650 mg 03/02/25 19:28 Acetaminophen 325 Mg Tablet PO Q4H PRN Mild Pain (1-3) or Fever Hydrocodone Bitart/Acetaminophen 1 tab 03/03/25 00:14 Hydrocodone/Acetaminophen (*Crx) 5-325 Mg Tablet PO Q4H PRN Pain Rated 4-6 Hydrocodone Bitart/Acetaminophen 1 tab 03/03/25 00:14 03/03/25 05:52 Hydrocodone/Acetaminophen (*Crx) 10-325 Mg Tablet PO 1 tab Q4H PRN Administration Pain Rated 7-10 Cyclobenzaprine HCl 10 mg 03/03/25 08:59 Cyclobenzaprine Hcl 10 Mg Tablet PO Q8H PRN Muscle Spasm Diazepam 2.5 mg 03/03/25 00:14 03/03/25 06:33 Diazepam Inj (*Crx) 10 Mg/2 Ml Syringe IV PUSH 2.5 mg Q6H PRN Administration Spasms Docusate Sodium 100 mg 03/02/25 19:28 Docusate Sodium 100 Mg Capsule PO BID PRN Constipation Enoxaparin Sodium 40 mg 03/03/25 09:00 03/03/25 08:50 Enoxaparin 40 Mg/0.4 Ml Syringe SUB-Q 40 mg DAILY ARACELIS Administration Hydrochlorothiazide 12.5 mg 03/03/25 09:00 Hydrochlorothiazide 12.5 Mg Capsule PO QAM ARACELIS Ibuprofen 400 mg 03/03/25 08:59 Ibuprofen 400 Mg Tablet PO Q6H PRN Pain Rated 1-3 Lisinopril 20 mg 03/03/25 09:00 Lisinopril 20 Mg Tablet PO QAM [facility] Miscellaneous Information 1 each 03/03/25 00:01 Ibuprofen Prn 1-3 Duplicates Tylenol Prn Pain Scale. D/C One Or Specify When To Use Which XX 04/02/25 00:00 CLARIFY ARACELIS Ondansetron HCl 4 mg 03/03/25 00:14 03/03/25 00:34 Ondansetron Inj 4 Mg/2 Ml Vial IV PUSH 4 mg Q4H PRN Administration Nausea And Vomiting Pantoprazole Sodium 40 mg 03/04/25 09:00 Pantoprazole 40 Mg Tablet PO QAM [facility] Topiramate 25 mg 03/03/25 09:00 Topiramate 25 Mg Tablet PO TID [facility] Radiology Results: ITS Impressions Lumbar Spine MRI 03/02/25 16:39 IMPRESSION: Degenerative changes detailed above Head/Neck CTA 03/02/25 18:49 IMPRESSION: 1. No critical stenosis, occlusion or aneurysm is identified. Labs Labs: Laboratory Results - last 24 hr 03/02/25 03/02/25 03/03/25 15:36 22:35 03:55 WBC 4.9 4.7 RBC 3.89 L 4.01 L Hgb 12.2 12.4 Hct 36.6 L 37.5 MCV 94.1 93.5 MCH 31.4 30.9 MCHC 33.3 33.1 RDW 12.6 12.5 Plt Count 262 275 MPV 8.7 9.2 Immature Gran % (Auto) 0.2 0.2 Neut % (Auto) 54.9 73.9 H Lymph % (Auto) 27.4 20.3 [place] % (Auto) 11.8 H 5.4 Eos % (Auto) 4.9 H 0.0 Baso % (Auto) 0.8 0.2 Lymph # (Auto) 1.35 0.95 [place] # (Auto) 0.6 0.3 Eos # (Auto) 0.2 0.0 Baso # (Auto) 0.0 0.0 Abs Immat Gran (auto) 0.01 0.01 Absolute Neuts (auto) 2.7 3.5 Absolute Nucleated RBC 0.000 0.000 Nucleated RBC % 0.0 0.0 ESR 12 Sodium 134 L 134 L Potassium 3.7 3.9 Chloride 105 103 Carbon Dioxide 25 26 Anion Gap 4 5 BUN 25 H D 18 H Creatinine 0.86 0.82 Estim Creat Clear Calc 63 66 Estimated GFR > 60 > 60 Glucose 114 H 125 H Lactic Acid 0.9 Calcium 8.1 L 8.5 Total Bilirubin 0.3 AST 33 ALT 19 Alkaline Phosphatase 89 C-Reactive Protein < 0.5 Total Protein 6.3 Albumin 3.7 Urine Color Yellow Urine Appearance Cloudy H Urine pH 8.0 Ur Specific [place] 1.037 H Urine Protein Negative Urine Glucose (UA) Negative Urine Ketones Negative Ur Blood (Man) Negative Urine Nitrate Negative Urine Bilirubin Negative Urine Urobilinogen 0.2 Leukocyte Esterase Rfl Negative Urine RBC 0-2 Urine WBC 0-5 Ur Squamous Epith Cells None seen Urine Bacteria None seen Urine Casts 0-2 Nasal MRSA (PCR) 03/03/25 05:53 WBC RBC Hgb Hct MCV MCH MCHC RDW Plt Count MPV Immature Gran % (Auto) Neut % (Auto) Lymph % (Auto) [place] % (Auto) Eos % (Auto) Baso % (Auto) Lymph # (Auto) [place] # (Auto) Eos # (Auto) Baso # (Auto) Abs Immat Gran (auto) Absolute Neuts (auto) Absolute Nucleated RBC Nucleated RBC % ESR Sodium Potassium Chloride Carbon Dioxide Anion Gap BUN Creatinine Estim Creat Clear Calc Estimated GFR Glucose Lactic Acid Calcium Total Bilirubin AST ALT Alkaline Phosphatase C-Reactive Protein Total Protein Albumin Urine Color Urine Appearance Urine pH Ur Specific [place] Urine Protein Urine Glucose (UA) Urine Ketones Ur Blood (Man) Urine Nitrate Urine Bilirubin Urine Urobilinogen Leukocyte Esterase Rfl Urine RBC Urine WBC Ur Squamous Epith Cells Urine Bacteria Urine Casts Nasal MRSA (PCR) Not detected
[2025-03-03] MEDS: TOPIRAMATE 25 MG TABLET PO ×3 (09:54→16:50)
[2025-03-03] MEDS: HYDROcodone/acetaminophen (*CRX) 5-325 MG TABLET 1 TAB PO (11:04)
[2025-03-03 15:29] LABS: CRP < 0.5 mg/dL (<1.0)
[2025-03-03 15:54] LABS: Syphilis IgG/IgM Antibody Non-Reactive (Nonreactive)
[2025-03-03 16:07] LABS: HIV 1/2 Ab P24 Ag Result Negative (Negative)
[2025-03-03 16:38] LABS: Vitamin B12 909.0 pg/mL (239-931)
[2025-03-03] MEDS: HYDROXYCHLOROQUINE SULFATE 200 MG TABLET PO (16:50)
[2025-03-03] MEDS: DULoxetine HCL 60 MG CAPSULE.DR PO (16:50)
[2025-03-03] MEDS: CYCLOBENZAPRINE HCL 10 MG TABLET PO (16:57)
[2025-03-03] MEDS: CELECOXIB 200 MG CAPSULE PO (20:42)
[2025-03-04] VITALS: PULSE 71
[2025-03-04] MEDS: CYCLOBENZAPRINE HCL 10 MG TABLET PO ×2 (03:26→20:39)
[2025-03-04] MEDS: HYDROcodone/acetaminophen (*CRX) 10-325 MG TABLET 1 TAB PO ×4 (03:26→17:10)
[2025-03-04 03:53] LABS: Hematocrit 37.4 % (37.0-47.0); Hemoglobin 12.5 g/dL (12.0-15.0); Immature Granulocyte Percent A 0.2 % (0-0.5); Lymphocytes Absolute Auto 2.08 K/mm3 (0.9-3.2); Mean Corpuscular HGB Conc 33.4 g/dl (32-36); Mean Corpuscular Hemoglobin 31.6 pg (26-34); Mean Corpuscular Volume 94.7 fl (80-100); Nucleated Red Blood Cells Absolute Auto 0.000 K/mm3 (0.0-0.012); Nucleated Red Blood Cells Perc 0.0 % (0.0-0.2); Platelet Count Result 268 k/mm3 (150-375); Red Blood Count 3.95 M/mm3 (4.2-5.4); White Blood Count 4.3 K/mm3 (4.5-10.0)
[2025-03-04 04:00] VITALS: PULSE 76
[2025-03-04 04:04] LABS: Alanine Aminotransferase 49 U/L (6-35); Albumin Level 3.5 g/dL (3.5-5.1); Alkaline Phosphatase 93 U/L (38-126); Anion Gap 6 mmol/L (4-12); Aspartate Amino Transferase 39 U/L (14-36); Bilirubin,Total 0.3 mg/dL (0.2-1.3); Blood Urea Nitrogen 18 mg/dL (7-17); Calcium 8.3 mg/dL (8.4-10.2); Carbon Dioxide 25 mmol/L (22-30); Chloride 104 mmol/L (98-107); Estimated CRCL calculation 63 ml/min; Estimated Glomerular Filt Rate > 60; Glucose 99 mg/dL (65-110); Magnesium 2.2 mg/dL (1.6-2.3); Potassium 3.5 mmol/L (3.4-5.0); Sodium 135 mmol/L (137-145); Total Protein 6.2 g/dL (6.3-8.2)
[2025-03-04 06:45] VITALS: BP 138/70; PULSE 76; RESP 19; TEMP 36.8; O2SAT 98
[2025-03-04 07:48] VITALS: PULSE 69
[2025-03-04] MEDS: DULoxetine HCL 60 MG CAPSULE.DR PO ×2 (07:52→17:10)
[2025-03-04] MEDS: ENOXAPARIN 40 MG/0.4 ML SYRINGE SUB-Q (07:52)
[2025-03-04] MEDS: TOPIRAMATE 25 MG TABLET PO ×3 (07:53→17:10)
[2025-03-04] MEDS: HYDROXYCHLOROQUINE SULFATE 200 MG TABLET PO ×2 (07:53→17:10)
[2025-03-04] MEDS: PANTOPRAZOLE 40 MG TABLET PO (07:53)
[2025-03-04] MEDS: LIDOCAINE 5% PATCH 1 PATCH TRANSDERM (07:56)
[2025-03-04] MEDS: POTASSIUM CHLORIDE 20 MEQ ER TABLET 40 MEQ PO (08:52)
--- NOTE | 2025-03-04 09:00 | PM.IMPN ---
Progress Note: A&P Assessment and Plan (1) Lumbar radiculopathy: Code(s): M54.16 - Radiculopathy, lumbar region Status: Acute Assessment and Plan: 59-year-old female with history of degenerative joint disease of lumbar spine and chronic symptoms over last more than a year presented with acute worsening of back pain and numbness and weakness of both legs. Right worse than left along with right footdrop. MRI done in ER L5-S1: Circumferential bulging of the disc with ligamentum flavum and facet hypertrophy. Moderate to severe bilateral foramina and lateral recess stenosis with moderate canal stenosis. L4-5: Circumferential bulging of the disc with ligamentum flavum and facet hypertrophy. Moderate to severe bilateral foramina and lateral recess stenosis, mild canal stenosis. L3-4: Circumferential bulging of the disc with moderate ligamentum flavum and facet hypertrophy. Moderate bilateral foramina stenosis, no lateral recess or canal stenosis. Neurosurgery consulted with no further recommendations P.r.n. analgesic and muscle relaxant Neurology was consulted and has evaluated the patient. Neurologist has recommended EMG study as an outpatient and follow-up with Neurosurgery as an outpatient Thoracic MRI is pending Exam is bit inconsistent as mentioned above Continue physical therapy occupational therapy Remove Domingo catheter (2) Leg numbness: Code(s): R20.0 - Anesthesia of skin Status: Acute (3) Gastroesophageal reflux disease: Code(s): K21.9 - Gastro-esophageal reflux disease without esophagitis Status: Acute Assessment and Plan: Continue home PPI (4) Back pain: Code(s): M54.9 - Dorsalgia, unspecified Status: Acute (5) Benign essential hypertension: Code(s): I10 - Essential (primary) hypertension Status: Chronic Assessment and Plan: Continue home medication Plan DVT prophylaxis -Lovenox Nutrition -diet ordered Code Status - Full Code Subjective Date/time seen: 03/04/25 Overnight events reviewed. Patient states she continues to have back pain and states the medication only takes the edge off. She has been working with physical therapy this morning. She still states that her feet feel numb and her right foot seems that add. She denies any other complaints. All other systems were reviewed and were negative. She is tolerating p.o. diet. She is on room air. She is afebrile. She has good urine output. Otherwise Sinus stable. Review of Systems Review of Systems: All systems reviewed & are unremarkable except as noted in HPI and below (HPI) Exam Narrative: General: Pt is alert awake and in NAD Lungs/Chest: Trachea central Clear BS B/L, No crackles or wheezing. Cardiac: RRR. Normal S1 S2. No murmurs Circulation: Bilateral dorsalis pedis pulses are palpable, feet are warm Abdomen: Normal bowel sounds.. Soft. NT. ND. Extremities: No clubbing, cyanosis or edema. Warm : Domingo in place Neurologic: Follows commands. AO x3 PERRL. Muscle strength and touch to sensation is normal in both arms and hands. She is able to sense touch in both feet and legs but states it is altered. She is weak in both legs right more than left. She is able to lift both legs up at hip but right is again less than left. On yesterday's exam she was unable to move her toes or dorsiflex her right foot. Today during the exam when I was removing his socks I could see she was moving her toes. And when I asked her to move her toes she said she is unable to do so. Then when I told her that I saw her moving her toes earlier she was able to dorsiflex the foot on command which she had earlier stated that she was unable to move. Again the dorsiflexion was less on the right but it was present ruling out complete footdrop. She is able to plantar flex both feet. She was able to stand up with physical therapist and support and get to chair. Skin: No Rash Objective Data Vital Signs Vital Signs: Vital Signs - 24 hr 03/03/25 10:00 03/03/25 10:00 03/03/25 11:00 Temperature 36.6 C 36.7 C Pulse Rate 70 70 71 Respiratory Rate 17 14 Blood Pressure 155/85 H 142/79 H Pulse Oximetry 98 100 Oxygen Delivery 03/03/25 12:00 03/03/25 12:00 03/03/25 12:00 Temperature 36.7 C Pulse Rate 77 71 Respiratory Rate 15 Blood Pressure 135/84 Pulse Oximetry 100 98 Oxygen Delivery Room Air 03/03/25 13:00 03/03/25 14:00 03/03/25 14:00 Temperature 36.8 C 36.7 C Pulse Rate 73 71 71 Respiratory Rate 18 20 Blood Pressure 143/84 H 129/73 Pulse Oximetry 98 100 Oxygen Delivery 03/03/25 15:00 03/03/25 16:00 03/03/25 16:00 Temperature 36.7 C Pulse Rate 65 67 71 Respiratory Rate 18 15 Blood Pressure 140/70 134/77 Pulse Oximetry 99 99 Oxygen Delivery 03/03/25 17:00 03/03/25 18:00 03/03/25 18:00 Temperature 36.7 C 36.7 C Pulse Rate 83 75 75 Respiratory Rate 16 16 Blood Pressure 123/66 118/63 Pulse Oximetry 100 96 Oxygen Delivery 03/03/25 19:00 03/03/25 20:00 03/03/25 20:00 Temperature Pulse Rate 76 69 Respiratory Rate 21 H Blood Pressure 109/65 Pulse Oximetry 98 98 Oxygen Delivery Room Air 03/03/25 22:00 03/04/25 00:00 03/04/25 04:00 Temperature 36.8 C Pulse Rate 71 71 76 Respiratory Rate 17 Blood Pressure Pulse Oximetry 100 Oxygen Delivery 03/04/25 06:45 03/04/25 07:48 03/04/25 07:55 Temperature 36.8 C Pulse Rate 76 69 Respiratory Rate 19 Blood Pressure 138/70 Pulse Oximetry 98 Oxygen Delivery Room Air 03/04/25 08:00 Temperature Pulse Rate Respiratory Rate Blood Pressure Pulse Oximetry Oxygen Delivery Room Air Intake/Output Intake/Output: Intake & Output 03/01/25 03/02/25 03/03/25 03/04/25 23:59 23:59 23:59 23:59 Intake Total 650 Output Total 953 8736 9886 Balance -540 -209 -2850 Meds/Results Medications: Active Medications Generic Name Dose Route Start Last Admin Trade Name Freq PRN Reason Stop Dose Admin Acetaminophen 650 mg 03/02/25 19:28 Acetaminophen 325 Mg Tablet PO Q4H PRN Mild Pain (1-3) or Fever Hydrocodone Bitart/Acetaminophen 1 tab 03/03/25 00:14 03/03/25 11:04 Hydrocodone/Acetaminophen (*Crx) 5-325 Mg Tablet PO 1 tab Q4H PRN Administration Pain Rated 4-6 Hydrocodone Bitart/Acetaminophen 1 tab 03/03/25 00:14 03/04/25 08:00 Hydrocodone/Acetaminophen (*Crx) 10-325 Mg Tablet PO 1 tab Q4H PRN Administration Pain Rated 7-10 Celecoxib 200 mg 03/03/25 21:00 03/03/25 20:42 Celecoxib 200 Mg Capsule PO 200 mg HS ARACELIS Administration Cyclobenzaprine HCl 10 mg 03/03/25 08:59 03/04/25 03:26 Cyclobenzaprine Hcl 10 Mg Tablet PO 10 mg Q8H PRN Administration Muscle Spasm Diazepam 2.5 mg 03/03/25 00:14 03/03/25 22:10 Diazepam Inj (*Crx) 10 Mg/2 Ml Syringe IV PUSH 2.5 mg Q6H PRN Administration Spasms Docusate Sodium 100 mg 03/02/25 19:28 Docusate Sodium 100 Mg Capsule PO BID PRN Constipation Duloxetine HCl 60 mg 03/03/25 17:00 03/04/25 07:52 Duloxetine Hcl 60 Mg Capsule.Dr PO 60 mg BID ARACELIS Administration Enoxaparin Sodium 40 mg 03/03/25 09:00 03/04/25 07:52 Enoxaparin 40 Mg/0.4 Ml Syringe SUB-Q 40 mg DAILY ARACELIS Administration Fluoxetine HCl 40 mg 03/04/25 09:00 03/04/25 07:52 Fluoxetine Hcl 20 Mg Capsule PO 40 mg DAILY ARACELIS Administration Hydrochlorothiazide 12.5 mg 03/03/25 09:00 03/04/25 07:53 Hydrochlorothiazide 12.5 Mg Capsule PO 12.5 mg QAM ARACELIS Administration Hydroxychloroquine Sulfate 200 mg 03/03/25 17:00 03/04/25 07:53 Hydroxychloroquine Sulfate 200 Mg Tablet PO 200 mg BID ARACELIS Administration Ibuprofen 400 mg 03/03/25 08:59 Ibuprofen 400 Mg Tablet PO Q6H PRN Pain Rated 1-3 Lidocaine 1 patch 03/04/25 09:00 03/04/25 07:56 Lidocaine 5% Patch TRANSDERM 1 patch DAILY [facility] Administration Lisinopril 20 mg 03/03/25 09:00 03/04/25 07:53 Lisinopril 20 Mg Tablet PO 20 mg QAM [facility] Administration Miscellaneous Information 1 each 03/03/25 00:01 Ibuprofen Prn 1-3 Duplicates Tylenol Prn Pain Scale. D/C One Or Specify When To Use Which XX 04/02/25 00:00 CLARIFY ARACELIS Nonformulary 1 each 03/03/25 15:05 Nutritional XX 03/04/25 15:04 Supplement PRN PRN Glucosamine Sulfate PROTOCOL [Glucosamine] 500 Mg Ondansetron HCl 4 mg 03/03/25 00:14 03/03/25 00:34 Ondansetron Inj 4 Mg/2 Ml Vial IV PUSH 4 mg Q4H PRN Administration Nausea And Vomiting Pantoprazole Sodium 40 mg 03/04/25 09:00 03/04/25 07:53 Pantoprazole 40 Mg Tablet PO 40 mg QAM ARACELIS Administration Topiramate 25 mg 03/03/25 09:00 03/04/25 07:53 Topiramate 25 Mg Tablet PO 25 mg TID ARACELIS Administration Radiology Results: ITS Impressions Lumbar Spine MRI 03/02/25 16:39 IMPRESSION: Degenerative changes detailed above Head/Neck CTA 03/02/25 18:49 IMPRESSION: 1. No critical stenosis, occlusion or aneurysm is identified. Labs Labs: Laboratory Results - last 24 hr 03/03/25 03/04/25 15:06 03:07 WBC 4.3 L RBC 3.95 L Hgb 12.5 Hct 37.4 MCV 94.7 MCH 31.6 MCHC 33.4 RDW 12.7 Plt Count 268 MPV 9.0 Immature Gran % (Auto) 0.2 Neut % (Auto) 34.9 L Lymph % (Auto) 48.0 H [place] % (Auto) 12.2 H Eos % (Auto) 3.5 Baso % (Auto) 1.2 Lymph # (Auto) 2.08 [place] # (Auto) 0.5 Eos # (Auto) 0.2 Baso # (Auto) 0.1 Abs Immat Gran (auto) 0.01 Absolute Neuts (auto) 1.5 Absolute Nucleated RBC 0.000 Nucleated RBC % 0.0 ESR 14 Sodium 135 L Potassium 3.5 Chloride 104 Carbon Dioxide 25 Anion Gap 6 BUN 18 H Creatinine 0.86 Estim Creat Clear Calc 63 Estimated GFR > 60 Glucose 99 Calcium 8.3 L Magnesium 2.2 Total Bilirubin 0.3 AST 39 H ALT 49 H Alkaline Phosphatase 93 C-Reactive Protein < 0.5 Total Protein 6.2 L Albumin 3.5 Vitamin B12 909.0 Folate 19.2 Syphilis IgG/IgM Ab Non-reactive HIV 1&2 Ab/P24 Ag 4thGn Negative Quality VTE Prophylaxis VTE prophylaxis: pharmacologic ordered
--- NOTE | 2025-03-04 15:18 | PC.NURSE ---
Report given to ROSMERY Vergara. Verbalizes understanding. Made aware of last pain medication dose and activity level. No acute distress noted. Patient transported to room 313 via medical bed.
--- NOTE | 2025-03-04 15:23 | PC.NURSE ---
pt transferred in to room 313 via bed, oriented to new room and environment, reviewed plan of care
--- NOTE | 2025-03-04 16:50 | PC.NURSE ---
at bedside he is very upset and angry, stating he hasn't been informed about what is going on with his and he doesn't know what her diagnosis is. I went to room and had lengthy discussion and reviewed chart with him and pt, Dr Barajas also came to room and spoke to them and mother and 2 other visitors were present, reviewed plan of care and that he has spoken with neurologist to devise a plan and that an MRI would be scheduled for tomorrow to check cervical spine
--- NOTE | 2025-03-04 18:15 | PC.NURSE ---
states he is wanting to take his out of here AMA and take her to [facility], he states he has spoken with his family physician and his neice that is a physician and that he wants more answers than he is getting here, I reviewed tests performed up until now and attempted to reassure him
--- NOTE | 2025-03-04 18:41 | PM.IMPN ---
Progress Note: A&P Assessment and Plan (1) Lumbar radiculopathy: Code(s): M54.16 - Radiculopathy, lumbar region Status: Acute (2) Leg numbness: Code(s): R20.0 - Anesthesia of skin Status: Acute (3) Gastroesophageal reflux disease: Code(s): K21.9 - Gastro-esophageal reflux disease without esophagitis Status: Acute (4) Back pain: Code(s): M54.9 - Dorsalgia, unspecified Status: Acute (5) Benign essential hypertension: Code(s): I10 - Essential (primary) hypertension Status: Chronic Plan This is a 59-year-old female who presents to the ED with leg weakness that started few hours prior to presentation. She stated started on right foot and radiated up to her leg and subsequently to her left leg. She also has low back pain however never had leg numbness before. No bowel or bladder incontinence. Due to tingling and weakness of lower extremities she is unable to walk Laboratory workup in ED showed sodium 134 BUN 25 glucose of 114 calcium of 8.1. CTA head and neck with no acute process. MRI lumbar spine with degenerative changes with no acute process. Patient was given steroid in the ER Neurosurgery and neurology has been consulted. 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 Weakness is asymmetric and also has intact knee reflexes does have features of dysautonomia with urinary retention needing Domingo catheter placement. Bladder or bowel dysfunction at onset a sensory level are all atypical for GBS. Lumbar puncture may be planned if progression of the weakness will hold anticoagulation. Since since the level is around T10 umbilical level MRI thoracic spine was obtained which showed moderate thoracic spondylosis. Discussed with Neurology again. Will perform MRI cervical spine and MRI brain to further evaluate. If these tests are unrevealing will proceed with spinal tap. Will hold off on any steroid as this will affect the findings on spinal tap. 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 Discussed with Neurology again Subjective Date/time seen: 03/04/25 18:41 Interval history: Patient seen later in the evening as family upset as patient continues to have right lower extremity weakness and pain. Discussed finding so far with the family. Domingo was removed diarrhea today. She is not able to urinate bladder scan more than 500 Review of Systems Review of Systems: All systems reviewed & are unremarkable except as noted in HPI and below Exam Narrative: General: Pt is alert awake and in NAD Lungs/Chest: Trachea central Clear BS B/L, No crackles or wheezing. Cardiac: RRR. Normal S1 S2. No murmurs Circulation: Bilateral dorsalis pedis pulses are palpable, feet are warm Abdomen: Normal bowel sounds.. Soft. NT. ND. Extremities: No clubbing, cyanosis or edema. Warm : Domingo in place Neurologic: Follows commands. AO x3 PERRL. Muscle strength and touch to sensation is normal in both arms and hands. She is able to sense touch in both feet and legs but diminished. She is weak in both legs right more than left. Babinski positive bilaterally Left knee reflex intact, right knee reflex absent Skin: No Rash Objective Data Vital Signs Vital Signs: Vital Signs - 24 hr 03/03/25 19:00 03/03/25 20:00 03/03/25 20:00 Temperature Pulse Rate 76 69 Respiratory Rate 21 H Blood Pressure 109/65 Pulse Oximetry 98 98 Oxygen Delivery Room Air 03/03/25 22:00 03/04/25 00:00 03/04/25 04:00 Temperature 98.3 F Pulse Rate 71 71 76 Respiratory Rate 17 Blood Pressure Pulse Oximetry 100 Oxygen Delivery 03/04/25 06:45 03/04/25 07:48 03/04/25 07:55 Temperature 98.2 F Pulse Rate 76 69 Respiratory Rate 19 Blood Pressure 138/70 Pulse Oximetry 98 Oxygen Delivery Room Air 03/04/25 08:00 03/04/25 11:04 Temperature Pulse Rate Respiratory Rate Blood Pressure Pulse Oximetry Oxygen Delivery Room Air Room Air Intake/Output Intake/Output: Intake & Output 03/01/25 03/02/25 03/03/25 03/04/25 23:59 23:59 23:59 23:59 Intake Total 650 250 Output Total 800 1300 1475 Balance -868 -080 -7497 Meds/Results Medications: Active Medications Generic Name Dose Route Start Last Admin Trade Name Freq PRN Reason Stop Dose Admin Acetaminophen 650 mg 03/02/25 19:28 Acetaminophen 325 Mg Tablet PO Q4H PRN Mild Pain (1-3) or Fever Hydrocodone Bitart/Acetaminophen 1 tab 03/03/25 00:14 03/03/25 11:04 Hydrocodone/Acetaminophen (*Crx) 5-325 Mg Tablet PO 1 tab Q4H PRN Administration Pain Rated 4-6 Hydrocodone Bitart/Acetaminophen 1 tab 03/03/25 00:14 03/04/25 17:10 Hydrocodone/Acetaminophen (*Crx) 10-325 Mg Tablet PO 1 tab Q4H PRN Administration Pain Rated 7-10 Celecoxib 200 mg 03/03/25 21:00 03/03/25 20:42 Celecoxib 200 Mg Capsule PO 200 mg HS ARACELIS Administration Cyclobenzaprine HCl 10 mg 03/03/25 08:59 03/04/25 03:26 Cyclobenzaprine Hcl 10 Mg Tablet PO 10 mg Q8H PRN Administration Muscle Spasm Diazepam 2.5 mg 03/03/25 00:14 03/03/25 22:10 Diazepam Inj (*Crx) 10 Mg/2 Ml Syringe IV PUSH 2.5 mg Q6H PRN Administration Spasms Docusate Sodium 100 mg 03/02/25 19:28 Docusate Sodium 100 Mg Capsule PO BID PRN Constipation Duloxetine HCl 60 mg 03/03/25 17:00 03/04/25 17:10 Duloxetine Hcl 60 Mg Capsule.Dr PO 60 mg BID ARACELIS Administration Enoxaparin Sodium 40 mg 03/03/25 09:00 03/04/25 07:52 Enoxaparin 40 Mg/0.4 Ml Syringe SUB-Q 40 mg DAILY ARACELIS Administration Fluoxetine HCl 40 mg 03/04/25 09:00 03/04/25 07:52 Fluoxetine Hcl 20 Mg Capsule PO 40 mg DAILY ARACELIS Administration Hydrochlorothiazide 12.5 mg 03/03/25 09:00 03/04/25 07:53 Hydrochlorothiazide 12.5 Mg Capsule PO 12.5 mg QAM ARACELIS Administration Hydroxychloroquine Sulfate 200 mg 03/03/25 17:00 03/04/25 17:10 Hydroxychloroquine Sulfate 200 Mg Tablet PO 200 mg BID ARACELIS Administration Ibuprofen 400 mg 03/03/25 08:59 Ibuprofen 400 Mg Tablet PO Q6H PRN Pain Rated 1-3 Lidocaine 1 patch 03/04/25 09:00 03/04/25 07:56 Lidocaine 5% Patch TRANSDERM 1 patch DAILY ARACELIS Administration Lisinopril 20 mg 03/03/25 09:00 03/04/25 07:53 Lisinopril 20 Mg Tablet PO 20 mg QAM ARACELIS Administration Miscellaneous Information 1 each 03/03/25 00:01 Ibuprofen Prn 1-3 Duplicates Tylenol Prn Pain Scale. D/C One Or Specify When To Use Which XX 04/02/25 00:00 CLARIFY ARACELIS Ondansetron HCl 4 mg 03/03/25 00:14 03/03/25 00:34 Ondansetron Inj 4 Mg/2 Ml Vial IV PUSH 4 mg Q4H PRN Administration Nausea And Vomiting Pantoprazole Sodium 40 mg 03/04/25 09:00 03/04/25 07:53 Pantoprazole 40 Mg Tablet PO 40 mg QAM ARACELIS Administration Topiramate 25 mg 03/03/25 09:00 03/04/25 17:10 Topiramate 25 Mg Tablet PO 25 mg TID ARACELIS Administration Radiology Results: ITS Impressions Lumbar Spine MRI 03/02/25 16:39 IMPRESSION: Degenerative changes detailed above Head/Neck CTA 03/02/25 18:49 IMPRESSION: 1. No critical stenosis, occlusion or aneurysm is identified. Thoracic Spine MRI 03/04/25 12:31 IMPRESSION: 1. Moderate thoracic spondylosis. Labs Labs: Laboratory Results - last 24 hr 03/04/25 03:07 WBC 4.3 L RBC 3.95 L Hgb 12.5 Hct 37.4 MCV 94.7 MCH 31.6 MCHC 33.4 RDW 12.7 Plt Count 268 MPV 9.0 Immature Gran % (Auto) 0.2 Neut % (Auto) 34.9 L Lymph % (Auto) 48.0 H [place] % (Auto) 12.2 H Eos % (Auto) 3.5 Baso % (Auto) 1.2 Lymph # (Auto) 2.08 [place] # (Auto) 0.5 Eos # (Auto) 0.2 Baso # (Auto) 0.1 Abs Immat Gran (auto) 0.01 Absolute Neuts (auto) 1.5 Absolute Nucleated RBC 0.000 Nucleated RBC % 0.0 Sodium 135 L Potassium 3.5 Chloride 104 Carbon Dioxide 25 Anion Gap 6 BUN 18 H Creatinine 0.86 Estim Creat Clear Calc 63 Estimated GFR > 60 Glucose 99 Calcium 8.3 L Magnesium 2.2 Total Bilirubin 0.3 AST 39 H ALT 49 H Alkaline Phosphatase 93 Total Protein 6.2 L Albumin 3.5
[2025-03-04] MEDS: DOCUSATE SODIUM 100 MG CAPSULE PO (20:39)
[2025-03-04] MEDS: CELECOXIB 200 MG CAPSULE PO (20:39)
[2025-03-04 21:04] VITALS: BP 107/58; PULSE 71; RESP 16; TEMP 36.1; O2SAT 100
[2025-03-05 05:22] VITALS: BP 125/53; PULSE 74; RESP 17; TEMP 36.9; O2SAT 100
[2025-03-05 05:53] LABS: Hematocrit 40.1 % (37.0-47.0); Hemoglobin 13.2 g/dL (12.0-15.0); Immature Granulocyte Percent A 0.2 % (0-0.5); Lymphocytes Absolute Auto 1.49 K/mm3 (0.9-3.2); Mean Corpuscular HGB Conc 32.9 g/dl (32-36); Mean Corpuscular Hemoglobin 31.2 pg (26-34); Mean Corpuscular Volume 94.8 fl (80-100); Nucleated Red Blood Cells Absolute Auto 0.000 K/mm3 (0.0-0.012); Nucleated Red Blood Cells Perc 0.0 % (0.0-0.2); Platelet Count Result 266 k/mm3 (150-375); Red Blood Count 4.23 M/mm3 (4.2-5.4); White Blood Count 5.4 K/mm3 (4.5-10.0)
[2025-03-05 06:14] LABS: Alanine Aminotransferase 61 U/L (6-35); Albumin Level 3.5 g/dL (3.5-5.1); Alkaline Phosphatase 87 U/L (38-126); Anion Gap 4 mmol/L (4-12); Aspartate Amino Transferase 40 U/L (14-36); Bilirubin,Total 0.4 mg/dL (0.2-1.3); Blood Urea Nitrogen 21 mg/dL (7-17); Calcium 8.8 mg/dL (8.4-10.2); Carbon Dioxide 29 mmol/L (22-30); Chloride 100 mmol/L (98-107); Estimated CRCL calculation 60 ml/min; Estimated Glomerular Filt Rate > 60; Glucose 109 mg/dL (65-110); Magnesium 2.2 mg/dL (1.6-2.3); Potassium 4.0 mmol/L (3.4-5.0); Sodium 133 mmol/L (137-145); Total Protein 6.1 g/dL (6.3-8.2)
[2025-03-05] MEDS: LIDOCAINE 5% PATCH 1 PATCH TRANSDERM (09:07)
[2025-03-05] MEDS: TOPIRAMATE 25 MG TABLET PO ×3 (09:09→17:37)
[2025-03-05] MEDS: DULoxetine HCL 60 MG CAPSULE.DR PO ×2 (09:09→17:37)
[2025-03-05] MEDS: HYDROXYCHLOROQUINE SULFATE 200 MG TABLET PO ×2 (09:09→17:37)
[2025-03-05] MEDS: ENOXAPARIN 40 MG/0.4 ML SYRINGE SUB-Q (09:10)
[2025-03-05] MEDS: PANTOPRAZOLE 40 MG TABLET PO (09:10)
[2025-03-05] MEDS: HYDROcodone/acetaminophen (*CRX) 10-325 MG TABLET 1 TAB PO ×2 (12:14→17:38)
--- NOTE | 2025-03-05 12:57 | PM.IMPN ---
Progress Note: A&P Assessment and Plan (1) Lumbar radiculopathy: Code(s): M54.16 - Radiculopathy, lumbar region Status: Acute (2) Leg numbness: Code(s): R20.0 - Anesthesia of skin Status: Acute (3) Gastroesophageal reflux disease: Code(s): K21.9 - Gastro-esophageal reflux disease without esophagitis Status: Acute (4) Back pain: Code(s): M54.9 - Dorsalgia, unspecified Status: Acute (5) Benign essential hypertension: Code(s): I10 - Essential (primary) hypertension Status: Chronic Plan This is a 59-year-old female who presents to the ED with leg weakness that started few hours prior to presentation. She stated started on right foot and radiated up to her leg and subsequently to her left leg. She also has low back pain however never had leg numbness before. No bowel or bladder incontinence. Due to tingling and weakness of lower extremities she is unable to walk Laboratory workup in ED showed sodium 134 BUN 25 glucose of 114 calcium of 8.1. CTA head and neck with no acute process. MRI lumbar spine with degenerative changes with no acute process. Patient was given steroid in the ER Neurosurgery and neurology has been consulted. 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 Weakness is asymmetric and also has intact knee reflexes does have features of dysautonomia with urinary retention needing Domingo catheter placement. Bladder or bowel dysfunction at onset a sensory level are all atypical for GBS. Lumbar puncture may be planned if progression of the weakness will hold anticoagulation. Since since the level is around T10 umbilical level MRI thoracic spine was obtained which showed moderate thoracic spondylosis. Discussed with Neurology again. Will perform MRI cervical spine and MRI brain to further evaluate. If these tests are unrevealing main need to proceed with spinal tap however symptomatology more consistent with lumbar radiculopathy. Will add Medrol Dosepak. Continue PT OT to see. Likely needs extensive physical therapy and rehab placement GERD Degenerate disc disease with chronic back pain Rheumatoid arthritis Carpal tunnel syndrome status post surgery Malignant melanoma of the face status post surgery Hypertension Hyperlipidemia DVT prophylaxis Lovenox Code status full code Subjective Date/time seen: 03/05/25 12:57 Interval history: Patient work with therapy today. She is able to move little better. Still has significant amount of pain for ambulation. Discussed with urologist. Discussed with physical therapy. Review of Systems Review of Systems: All systems reviewed & are unremarkable except as noted in HPI and below Exam Narrative: General: Pt is alert awake and in NAD Lungs/Chest: Trachea central Clear BS B/L, No crackles or wheezing. Cardiac: RRR. Normal S1 S2. No murmurs Circulation: Bilateral dorsalis pedis pulses are palpable, feet are warm Abdomen: Normal bowel sounds.. Soft. NT. ND. Extremities: No clubbing, cyanosis or edema. Warm : Domingo in place Neurologic: Follows commands. AO x3 PERRL. Muscle strength and touch to sensation is normal in both arms and hands. She is able to sense touch in both feet and legs but diminished. She is weak in both legs right more than left. Babinski positive bilaterally Left knee reflex intact, right knee reflex intact Skin: No Rash Objective Data Vital Signs Vital Signs: Vital Signs - 24 hr 03/04/25 21:04 03/05/25 05:22 Temperature 97.0 F L 98.4 F Pulse Rate 71 74 Respiratory Rate 16 17 Blood Pressure 107/58 L 125/53 L Pulse Oximetry 100 100 Intake/Output Intake/Output: Intake & Output 03/02/25 03/03/25 03/04/25 03/05/25 23:59 23:59 23:59 23:59 Intake Total 650 625 520 Output Total 800 1300 1475 750 Balance -800 -650 -850 -230 Meds/Results Medications: Active Medications Generic Name Dose Route Start Last Admin Trade Name Freq PRN Reason Stop Dose Admin Acetaminophen 650 mg 03/02/25 19:28 Acetaminophen 325 Mg Tablet PO Q4H PRN Mild Pain (1-3) or Fever Hydrocodone Bitart/Acetaminophen 1 tab 03/03/25 00:14 03/03/25 11:04 Hydrocodone/Acetaminophen (*Crx) 5-325 Mg Tablet PO 1 tab Q4H PRN Administration Pain Rated 4-6 Hydrocodone Bitart/Acetaminophen 1 tab 03/03/25 00:14 03/05/25 12:14 Hydrocodone/Acetaminophen (*Crx) 10-325 Mg Tablet PO 1 tab Q4H PRN Administration Pain Rated 7-10 Celecoxib 200 mg 03/03/25 21:00 03/04/25 20:39 Celecoxib 200 Mg Capsule PO 200 mg HS ARACELIS Administration Cyclobenzaprine HCl 10 mg 03/03/25 08:59 03/04/25 20:39 Cyclobenzaprine Hcl 10 Mg Tablet PO 10 mg Q8H PRN Administration Muscle Spasm Diazepam 2.5 mg 03/03/25 00:14 03/03/25 22:10 Diazepam Inj (*Crx) 10 Mg/2 Ml Syringe IV PUSH 2.5 mg Q6H PRN Administration Spasms Docusate Sodium 100 mg 03/02/25 19:28 03/04/25 20:39 Docusate Sodium 100 Mg Capsule PO 100 mg BID PRN Administration Constipation Duloxetine HCl 60 mg 03/03/25 17:00 03/05/25 09:09 Duloxetine Hcl 60 Mg Capsule.Dr PO 60 mg BID ARACELIS Administration Enoxaparin Sodium 40 mg 03/03/25 09:00 03/05/25 09:10 Enoxaparin 40 Mg/0.4 Ml Syringe SUB-Q 40 mg DAILY ARACELIS Administration Fluoxetine HCl 40 mg 03/04/25 09:00 03/05/25 09:09 Fluoxetine Hcl 20 Mg Capsule PO 40 mg DAILY ARACELIS Administration Hydrochlorothiazide 12.5 mg 03/03/25 09:00 03/05/25 09:10 Hydrochlorothiazide 12.5 Mg Capsule PO 12.5 mg QAM ARACELIS Administration Hydroxychloroquine Sulfate 200 mg 03/03/25 17:00 03/05/25 09:09 Hydroxychloroquine Sulfate 200 Mg Tablet PO 200 mg BID ARACELIS Administration Ibuprofen 400 mg 03/03/25 08:59 Ibuprofen 400 Mg Tablet PO Q6H PRN Pain Rated 1-3 Lidocaine 1 patch 03/04/25 09:00 03/05/25 09:07 Lidocaine 5% Patch TRANSDERM 1 patch DAILY ARACELIS Administration Lisinopril 20 mg 03/03/25 09:00 03/05/25 09:09 Lisinopril 20 Mg Tablet PO 20 mg QAM ARACELIS Administration Morphine Sulfate 2 mg 03/04/25 18:42 Morphine Sulfate (*Crx) 4 Mg/Ml Inj IV PUSH Q4H PRN Pain Rated 7-10 IF NPO Ondansetron HCl 4 mg 03/03/25 00:14 03/03/25 00:34 Ondansetron Inj 4 Mg/2 Ml Vial IV PUSH 4 mg Q4H PRN Administration Nausea And Vomiting Pantoprazole Sodium 40 mg 03/04/25 09:00 03/05/25 09:10 Pantoprazole 40 Mg Tablet PO 40 mg QAM ARACELIS Administration Topiramate 25 mg 03/03/25 09:00 03/05/25 12:14 Topiramate 25 Mg Tablet PO 25 mg TID ARACELIS Administration Radiology Results: ITS Impressions Lumbar Spine MRI 03/02/25 16:39 IMPRESSION: Degenerative changes detailed above Head/Neck CTA 03/02/25 18:49 IMPRESSION: 1. No critical stenosis, occlusion or aneurysm is identified. Thoracic Spine MRI 03/04/25 12:31 IMPRESSION: 1. Moderate thoracic spondylosis. Labs Labs: Laboratory Results - last 24 hr 03/05/25 05:27 WBC 5.4 RBC 4.23 Hgb 13.2 Hct 40.1 MCV 94.8 MCH 31.2 MCHC 32.9 RDW 12.6 Plt Count 266 MPV 8.8 Immature Gran % (Auto) 0.2 Neut % (Auto) 55.0 Lymph % (Auto) 27.8 [place] % (Auto) 11.6 H Eos % (Auto) 4.3 Baso % (Auto) 1.1 Lymph # (Auto) 1.49 [place] # (Auto) 0.6 Eos # (Auto) 0.2 Baso # (Auto) 0.1 Abs Immat Gran (auto) 0.01 Absolute Neuts (auto) 3.0 Absolute Nucleated RBC 0.000 Nucleated RBC % 0.0 Sodium 133 L Potassium 4.0 Chloride 100 Carbon Dioxide 29 Anion Gap 4 BUN 21 H Creatinine 0.90 Estim Creat Clear Calc 60 Estimated GFR > 60 Glucose 109 Calcium 8.8 Magnesium 2.2 Total Bilirubin 0.4 AST 40 H ALT 61 H Alkaline Phosphatase 87 Total Protein 6.1 L Albumin 3.5
--- NOTE | 2025-03-05 13:27 | PC.NURSE ---
call to pharmacy to confirm dosing of medrol dose pack, new order pre-timed for 629 this a.[place] pharmacist states pt is to receive 2 tabs now, 2 with dinner and 2 at bedtime to complete the day one 6 pills in one days time
[2025-03-05] MEDS: methylPREDNISolone (MEDROL) DOSEPACK 4 MG TABLETS PO ×3 (13:33→21:05)
[2025-03-05 14:00] VITALS: BP 109/49; PULSE 78; RESP 16; TEMP 36.2; O2SAT 98
--- NOTE | 2025-03-05 15:30 | PC.NURSE ---
assisted pt to bathroom with [employer] using the yayo stedy for safety, pt did have some pain with standing but did well once on device, unable to have BM but is passing gas, returned to bed per pt request
--- NOTE | 2025-03-05 17:30 | PC.NURSE ---
arrives today wanting to speak to me again about plan of care stating he is not at all satisfied with the doctors here and that he wants answers and wants to know when he is going to get them, I reviewed with him MD notes from today and that pt is still scheduled today to have MRI, he repeats same things from yesterday that he is considering taking his out AMA and taking her to [facility] ED, that his family physician, his neice and now has spoken to pt's rhumatologist and that he thinks it would be best to get her over there, I reviewed the AMA process with him and reassured him that that is her prerogative and he states he wants to wait until he speaks with the insurance company tomorrow, he states he has also called [facility] to see what the process is
--- NOTE | 2025-03-05 18:10 | PC.NURSE ---
pt is in good spirits, resting comfortably, she is visiting with family and grand-daughter that is sitting in the bed with her, she is joking with staff and states she is feeling better, given pain pill prior to MRI for transport and exam as it was painful for her yesterday
[2025-03-05 20:00] VITALS: PULSE 66; RESP 18; O2SAT 99
[2025-03-05 20:53] VITALS: BP 119/59; PULSE 66; RESP 18; TEMP 36.2; O2SAT 99
[2025-03-05] MEDS: CELECOXIB 200 MG CAPSULE PO (21:04)
[2025-03-05] MEDS: DOCUSATE SODIUM 100 MG CAPSULE PO (21:13)
[2025-03-05 21:52] VITALS: O2SAT 99
[2025-03-06 05:06] VITALS: BP 122/59; PULSE 70; RESP 16; TEMP 36.6; O2SAT 98
[2025-03-06] MEDS: methylPREDNISolone (MEDROL) DOSEPACK 4 MG TABLETS PO ×4 (05:41→21:31)
[2025-03-06] MEDS: DULoxetine HCL 60 MG CAPSULE.DR PO ×2 (09:08→17:04)
[2025-03-06] MEDS: PANTOPRAZOLE 40 MG TABLET PO (09:09)
[2025-03-06] MEDS: TOPIRAMATE 25 MG TABLET PO ×3 (09:09→17:04)
[2025-03-06] MEDS: LIDOCAINE 5% PATCH 1 PATCH TRANSDERM (09:09)
[2025-03-06] MEDS: HYDROXYCHLOROQUINE SULFATE 200 MG TABLET PO ×2 (09:09→17:04)
[2025-03-06] MEDS: HYDROcodone/acetaminophen (*CRX) 10-325 MG TABLET 1 TAB PO ×2 (09:11→21:30)
--- NOTE | 2025-03-06 09:46 | PM.IMPN ---
Progress Note: A&P Assessment and Plan (1) Lumbar radiculopathy: Code(s): M54.16 - Radiculopathy, lumbar region Status: Acute (2) Leg numbness: Code(s): R20.0 - Anesthesia of skin Status: Acute (3) Gastroesophageal reflux disease: Code(s): K21.9 - Gastro-esophageal reflux disease without esophagitis Status: Acute (4) Back pain: Code(s): M54.9 - Dorsalgia, unspecified Status: Acute (5) Benign essential hypertension: Code(s): I10 - Essential (primary) hypertension Status: Chronic Plan This is a 59-year-old female who presents to the ED with leg weakness that started few hours prior to presentation. She stated started on right foot and radiated up to her leg and subsequently to her left leg. She also has low back pain however never had leg numbness before. No bowel or bladder incontinence. Due to tingling and weakness of lower extremities she is unable to walk Laboratory workup in ED showed sodium 134 BUN 25 glucose of 114 calcium of 8.1. CTA head and neck with no acute process. MRI lumbar spine with degenerative changes with no acute process. Patient was given steroid in the ER once. Neurosurgery and neurology has been consulted. Patient admitted to the ICU for possible GBS. 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 Weakness is asymmetric and also has intact knee reflexes does have features of dysautonomia with urinary retention needing Domingo catheter placement. Bladder or bowel dysfunction at onset a sensory level are all atypical for GBS. Lumbar puncture may be planned if progression of the weakness will hold anticoagulation. Since since the level is around T10 umbilical level MRI thoracic spine was obtained which showed moderate thoracic spondylosis. Discussed with Neurology again. Will perform MRI cervical spine and MRI brain to further evaluate. If these tests are unrevealing main need to proceed with spinal tap however symptomatology more consistent with lumbar radiculopathy. Will add Medrol Dosepak. Continue PT OT to see. Likely needs extensive physical therapy and rehab placement GERD Degenerate disc disease with chronic back pain Rheumatoid arthritis Carpal tunnel syndrome status post surgery Malignant melanoma of the face status post surgery Hypertension Hyperlipidemia 03/06/25 - Exam is atypical and does not fit with imaging findings. ESR normal. Patient wishing to be transferred to [facility]. Will talk with neurology about possibly etiologies and to determine if lumbar puncture needed. Will push films to [facility]. Continue PT/OT. DVT prophylaxis Lovenox Code status full code Subjective Date/time seen: 03/06/25 09:46 Interval history: 59yo female history of malignant melanoma, history DVT, HLD, GERD and HTN who presents with tingling of lower extremities. Assuming care. Chart reviewed. Feeling better. Unable to stand but able to bear weight. Pain well controlled. Exam Narrative: AF 97.8 122/59 70 16 98% ra Gen - NARD Chest - CTA bilaterally CV - RRR Abd - soft, NT, ND - Domingo secured with blood tinged urine in bag Ext - no pedal edema Neuro - hyporeflexia patella and AJ, no ankle clonus. Increased tone to the right foot in plantar flexion. 4-/5 hip flexors. poor left proprioception. Heel to lugo limited but intact and was able to perform this with right leg. Psych - tearful at times when recounting a bad interaction with a provider Skin - warm and dry Objective Data Vital Signs Vital Signs: Vital Signs - 24 hr 03/05/25 14:00 03/05/25 20:00 03/05/25 20:53 Temperature 97.1 F L 97.2 F L Pulse Rate 78 66 66 Respiratory Rate 16 18 18 Blood Pressure 109/49 L 119/59 L Pulse Oximetry 98 99 99 Oxygen Delivery Room Air 03/05/25 21:52 03/06/25 05:06 Temperature 97.8 F Pulse Rate 70 Respiratory Rate 16 Blood Pressure 122/59 L Pulse Oximetry 99 98 Oxygen Delivery Room Air Intake/Output Intake/Output: Intake & Output 03/03/25 03/04/25 03/05/25 03/06/25 23:59 23:59 23:59 23:59 Intake Total 284 676 2770 350 Output Total 0079 0846 0854 971 Balance -562 -077 -7481 -651 Meds/Results Medications: Active Medications Generic Name Dose Route Start Last Admin Trade Name Freq PRN Reason Stop Dose Admin Acetaminophen 650 mg 03/02/25 19:28 Acetaminophen 325 Mg Tablet PO Q4H PRN Mild Pain (1-3) or Fever Hydrocodone Bitart/Acetaminophen 1 tab 03/03/25 00:14 03/03/25 11:04 Hydrocodone/Acetaminophen (*Crx) 5-325 Mg Tablet PO 1 tab Q4H PRN Administration Pain Rated 4-6 Hydrocodone Bitart/Acetaminophen 1 tab 03/03/25 00:14 03/06/25 09:11 Hydrocodone/Acetaminophen (*Crx) 10-325 Mg Tablet PO 1 tab Q4H PRN Administration Pain Rated 7-10 Celecoxib 200 mg 03/03/25 21:00 03/05/25 21:04 Celecoxib 200 Mg Capsule PO 200 mg HS ARACELIS Administration Cyclobenzaprine HCl 10 mg 03/03/25 08:59 03/04/25 20:39 Cyclobenzaprine Hcl 10 Mg Tablet PO 10 mg Q8H PRN Administration Muscle Spasm Diazepam 2.5 mg 03/03/25 00:14 03/03/25 22:10 Diazepam Inj (*Crx) 10 Mg/2 Ml Syringe IV PUSH 2.5 mg Q6H PRN Administration Spasms Docusate Sodium 100 mg 03/02/25 19:28 03/05/25 21:13 Docusate Sodium 100 Mg Capsule PO 100 mg BID PRN Administration Constipation Duloxetine HCl 60 mg 03/03/25 17:00 03/06/25 09:08 Duloxetine Hcl 60 Mg Capsule.Dr PO 60 mg BID ARACELIS Administration Enoxaparin Sodium 40 mg 03/03/25 09:00 03/06/25 09:11 Enoxaparin 40 Mg/0.4 Ml Syringe SUB-Q Not Given DAILY ARACELIS Fluoxetine HCl 40 mg 03/04/25 09:00 03/06/25 09:11 Fluoxetine Hcl 20 Mg Capsule PO 40 mg DAILY ARACELIS Administration Hydrochlorothiazide 12.5 mg 03/03/25 09:00 03/06/25 09:08 Hydrochlorothiazide 12.5 Mg Capsule PO 12.5 mg QAM ARACELIS Administration Hydroxychloroquine Sulfate 200 mg 03/03/25 17:00 03/06/25 09:09 Hydroxychloroquine Sulfate 200 Mg Tablet PO 200 mg BID ARACELIS Administration Ibuprofen 400 mg 03/03/25 08:59 Ibuprofen 400 Mg Tablet PO Q6H PRN Pain Rated 1-3 Lidocaine 1 patch 03/04/25 09:00 03/06/25 09:09 Lidocaine 5% Patch TRANSDERM 1 patch DAILY ARACELIS Administration Lisinopril 20 mg 03/03/25 09:00 03/06/25 09:09 Lisinopril 20 Mg Tablet PO 20 mg QAM ARACELIS Administration Methylprednisolone 4 mg 03/05/25 06:30 03/06/25 05:41 Methylprednisolone (Medrol) Dosepack 4 Mg Tablets PO 03/10/25 07:29 4 mg 0630,1200,1700 ARACELIS Administration Taper Morphine Sulfate 2 mg 03/04/25 18:42 Morphine Sulfate (*Crx) 4 Mg/Ml Inj IV PUSH Q4H PRN Pain Rated 7-10 IF NPO Ondansetron HCl 4 mg 03/03/25 00:14 03/03/25 00:34 Ondansetron Inj 4 Mg/2 Ml Vial IV PUSH 4 mg Q4H PRN Administration Nausea And Vomiting Pantoprazole Sodium 40 mg 03/04/25 09:00 03/06/25 09:09 Pantoprazole 40 Mg Tablet PO 40 mg QAM ARACELIS Administration Topiramate 25 mg 03/03/25 09:00 03/06/25 09:09 Topiramate 25 Mg Tablet PO 25 mg TID ARACELIS Administration Radiology Results: ITS Impressions Lumbar Spine MRI 03/02/25 16:39 IMPRESSION: Degenerative changes detailed above Head/Neck CTA 03/02/25 18:49 IMPRESSION: 1. No critical stenosis, occlusion or aneurysm is identified. Thoracic Spine MRI 03/04/25 12:31 IMPRESSION: 1. Moderate thoracic spondylosis. Cervical Spine MRI 03/05/25 18:41 IMPRESSION: 1. No acute bony lesions are cervical vertebrae. 2. Degenerative disc changes as described above at C4-5 level with bulging annulus causing mild compromise of the thecal sac and both lateral recesses. Findings at the levels are described above in detail. 3. No focal lesions of the cervical spinal cord. Brain MRI 03/05/25 19:10 IMPRESSION: 1. Limited evaluation as patient is unable to tolerate all sequences. 2. No intracranial bleed. No acute ischemia. No evidence of intracranial space occupying lesions are seen.
--- NOTE | 2025-03-06 12:53 | PC.NURSE ---
RN spoke to Radiology and all imaging for this patient will be pushed to [facility].
[2025-03-06 14:00] VITALS: BP 127/59; PULSE 74; RESP 18; TEMP 36.1; O2SAT 100
[2025-03-06 20:00] VITALS: PULSE 79; RESP 14; O2SAT 99
[2025-03-06] MEDS: CELECOXIB 200 MG CAPSULE PO (21:31)
[2025-03-06] MEDS: DOCUSATE SODIUM 100 MG CAPSULE PO (21:31)
[2025-03-06 22:00] VITALS: BP 120/53; PULSE 79; RESP 14; TEMP 36.5; O2SAT 99
[2025-03-07 06:00] VITALS: BP 132/66; PULSE 70; RESP 14; TEMP 36.6; O2SAT 99
[2025-03-07] MEDS: methylPREDNISolone (MEDROL) DOSEPACK 4 MG TABLETS PO ×4 (06:35→20:57)
[2025-03-07] MEDS: LIDOCAINE 5% PATCH 1 PATCH TRANSDERM (08:38)
[2025-03-07] MEDS: DULoxetine HCL 60 MG CAPSULE.DR PO ×2 (08:38→17:31)
[2025-03-07] MEDS: PANTOPRAZOLE 40 MG TABLET PO (08:38)
[2025-03-07] MEDS: HYDROXYCHLOROQUINE SULFATE 200 MG TABLET PO ×2 (08:38→17:31)
[2025-03-07] MEDS: TOPIRAMATE 25 MG TABLET PO ×3 (08:38→17:31)
[2025-03-07] MEDS: ENOXAPARIN 40 MG/0.4 ML SYRINGE SUB-Q (08:39)
[2025-03-07] MEDS: HYDROcodone/acetaminophen (*CRX) 10-325 MG TABLET 1 TAB PO (08:54)
--- NOTE | 2025-03-07 10:33 | PC.NURSE ---
I, Leidy Prather RN, have reviewed documentation by Morena PALAFOX and agree with the findings.
[2025-03-07] MEDS: DOCUSATE SODIUM 100 MG CAPSULE PO (12:19)
[2025-03-07 14:00] VITALS: BP 128/70; PULSE 78; RESP 16; TEMP 36.6; O2SAT 100
--- NOTE | 2025-03-07 14:47 | PM.IMPN ---
Progress Note: A&P Assessment and Plan (1) Lumbar radiculopathy: Code(s): M54.16 - Radiculopathy, lumbar region Status: Acute (2) Leg numbness: Code(s): R20.0 - Anesthesia of skin Status: Acute (3) Gastroesophageal reflux disease: Code(s): K21.9 - Gastro-esophageal reflux disease without esophagitis Status: Acute (4) Back pain: Code(s): M54.9 - Dorsalgia, unspecified Status: Acute (5) Benign essential hypertension: Code(s): I10 - Essential (primary) hypertension Status: Chronic (6) Rheumatoid arthritis: Code(s): M06.9 - Rheumatoid arthritis, unspecified Status: Acute Plan This is a 59-year-old female who presents to the ED with leg weakness that started few hours prior to presentation. She stated started on right foot and radiated up to her leg and subsequently to her left leg. She also has low back pain however never had leg numbness before. No bowel or bladder incontinence. Due to tingling and weakness of lower extremities she is unable to walk Laboratory workup in ED showed sodium 134 BUN 25 glucose of 114 calcium of 8.1. CTA head and neck with no acute process. MRI lumbar spine with degenerative changes with mod-severe bilateral foramina and lateral recess stenosis wiht mild-moderate canal stenosis L4-5 and L-S1. Patient was given steroid in the ER. Neurosurgery and neurology has been consulted. Patient admitted to the ICU for possible GBS. Weakness is asymmetric and also has intact knee reflexes does have features of dysautonomia with urinary retention needing Domingo catheter placement. Bladder or bowel dysfunction at onset a sensory level are all atypical for GBS. Neurosurgeon did not feel there was any acute neurosurgical issues. Neuro recommended outpatient EMG. Since since the level is around T10 umbilical level MRI thoracic spine was obtained which showed moderate thoracic spondylosis. MRI cervical spine showing degenerative disc changes at C4-5 level with bulging annulus causing mild compromise of the thecal sac and both lateral recesses. CTA head/neck showing no critical stenosis, occlusion or aneurysm. Brain MRI was limited but no acute findings. Medrol Dosepak added. PT/OT following. Spoke with Neurology today and they felt this was either atypical GBS (less likely), lumbosacral radiculopathy or psychogenic (given the odd physical findings). patient and family are wishing transfer. Discussed with patient and (with patient permission). [facility] called and they agreed to accept the patient. Plan for transfer this evening. DVT prophylaxis Lovenox Code status full code Subjective Date/time seen: 03/07/25 14:47 Interval history: 59yo female history of malignant melanoma, history DVT, HLD, GERD and HTN who presents with tingling of lower extremities. Eating well. Slept okay. No CP or SOB. Still unable to stand. Exam Narrative: AF 97.8 132/66 70 14 99% ra Gen - NARD Chest - CTA bilaterally CV - RRR Abd - soft, NT, ND - Domingo secured with clear yellow urine in bag Ext - no pedal edema Neuro - 2+ patellar, no AJ. no sensation from below the umbilicus. Psych - tearful at times when recounting stories Skin - warm and dry Objective Data Vital Signs Vital Signs: Vital Signs - 24 hr 03/06/25 20:00 03/06/25 22:00 03/07/25 06:00 Temperature 97.7 F 97.8 F Pulse Rate 79 79 70 Respiratory Rate 14 14 14 Blood Pressure 120/53 L 132/66 Pulse Oximetry 99 99 99 Oxygen Delivery Room Air 03/07/25 08:00 Temperature Pulse Rate Respiratory Rate Blood Pressure Pulse Oximetry Oxygen Delivery Room Air Intake/Output Intake/Output: Intake & Output 03/04/25 03/05/25 03/06/25 03/07/25 23:59 23:59 23:59 23:59 Intake Total 625 1000 930 540 Output Total 1471 2550 3725 1050 [facility] -850 [phone] -[phone] -510 Meds/Results Medications: Active Medications Generic Name Dose Route Start Last Admin Trade Name Freq PRN Reason Stop Dose Admin Acetaminophen 650 mg 03/02/25 19:28 Acetaminophen 325 Mg Tablet PO Q4H PRN Mild Pain (1-3) or Fever Hydrocodone Bitart/Acetaminophen 1 tab 03/03/25 00:14 03/07/25 08:54 Hydrocodone/Acetaminophen (*Crx) 10-325 Mg Tablet PO 1 tab Q4H PRN Administration Pain Rated 7-10 Celecoxib 200 mg 03/03/25 21:00 03/06/25 21:31 Celecoxib 200 Mg Capsule PO 200 mg HS ARACELIS Administration Cyclobenzaprine HCl 10 mg 03/03/25 08:59 03/04/25 20:39 Cyclobenzaprine Hcl 10 Mg Tablet PO 10 mg Q8H PRN Administration Muscle Spasm Diazepam 2.5 mg 03/03/25 00:14 03/03/25 22:10 Diazepam Inj (*Crx) 10 Mg/2 Ml Syringe IV PUSH 2.5 mg Q6H PRN Administration Spasms Docusate Sodium 100 mg 03/02/25 19:28 03/07/25 12:19 Docusate Sodium 100 Mg Capsule PO 100 mg BID PRN Administration Constipation Duloxetine HCl 60 mg 03/03/25 17:00 03/07/25 08:38 Duloxetine Hcl 60 Mg Capsule.Dr PO 60 mg BID ARACELIS Administration Enoxaparin Sodium 40 mg 03/03/25 09:00 03/07/25 08:39 Enoxaparin 40 Mg/0.4 Ml Syringe SUB-Q 40 mg DAILY ARACELIS Administration Fluoxetine HCl 40 mg 03/04/25 09:00 03/07/25 08:38 Fluoxetine Hcl 20 Mg Capsule PO 40 mg DAILY ARACELIS Administration Hydrochlorothiazide 12.5 mg 03/03/25 09:00 03/07/25 08:38 Hydrochlorothiazide 12.5 Mg Capsule PO 12.5 mg QAM ARACELIS Administration Hydroxychloroquine Sulfate 200 mg 03/03/25 17:00 03/07/25 08:38 Hydroxychloroquine Sulfate 200 Mg Tablet PO 200 mg BID ARACELIS Administration Ibuprofen 400 mg 03/03/25 08:59 Ibuprofen 400 Mg Tablet PO Q6H PRN Pain Rated 4-6 Lidocaine 1 patch 03/04/25 09:00 03/07/25 08:38 Lidocaine 5% Patch TRANSDERM 1 patch DAILY ARACELIS Administration Lisinopril 20 mg 03/03/25 09:00 03/07/25 08:38 Lisinopril 20 Mg Tablet PO 20 mg QAM ARACELIS Administration Methylprednisolone 4 mg 03/05/25 06:30 03/07/25 12:21 Methylprednisolone (Medrol) Dosepack 4 Mg Tablets PO 03/10/25 07:29 4 mg 0630,1200,1700,2100 ARACELIS Administration Taper Ondansetron HCl 4 mg 03/03/25 00:14 03/03/25 00:34 Ondansetron Inj 4 Mg/2 Ml Vial IV PUSH 4 mg Q4H PRN Administration Nausea And Vomiting Pantoprazole Sodium 40 mg 03/04/25 09:00 03/07/25 08:38 Pantoprazole 40 Mg Tablet PO 40 mg QAM ARACELIS Administration Topiramate 25 mg 03/03/25 09:00 03/07/25 12:19 Topiramate 25 Mg Tablet PO 25 mg TID ARACELIS Administration Radiology Results: ITS Impressions Lumbar Spine MRI 03/02/25 16:39 IMPRESSION: Degenerative changes detailed above Head/Neck CTA 03/02/25 18:49 IMPRESSION: 1. No critical stenosis, occlusion or aneurysm is identified. Thoracic Spine MRI 03/04/25 12:31 IMPRESSION: 1. Moderate thoracic spondylosis. Cervical Spine MRI 03/05/25 18:41 IMPRESSION: 1. No acute bony lesions are cervical vertebrae. 2. Degenerative disc changes as described above at C4-5 level with bulging annulus causing mild compromise of the thecal sac and both lateral recesses. Findings at the levels are described above in detail. 3. No focal lesions of the cervical spinal cord. Brain MRI 03/05/25 19:10 IMPRESSION: 1. Limited evaluation as patient is unable to tolerate all sequences. 2. No intracranial bleed. No acute ischemia. No evidence of intracranial space occupying lesions are seen.
--- NOTE | 2025-03-07 17:21 | WPDNEUROPN ---
Progress Note: A&P Assessment and Plan (1) Bilateral leg weakness: Code(s): R29.898 - Other symptoms and signs involving the musculoskeletal system Status: Acute (2) Lumbar spondylosis: Code(s): M47.816 - Spondylosis without myelopathy or radiculopathy, lumbar region Status: Acute Plan The patient's family is demanding to be transferred to [place]. The MRIs of the spine and brain have not yielded any further information. Dr. Luna has previously suggested a EMG nerve can study of the lower limbs. In view of the rather sudden onset of weakness with mixed pictures spinal tap to look for grand very syndrome may be an option unless of course we can find a bed for her and [facility] where the contact have been made by the hospitalist team. I shall be glad to cover her from Neurology point of view so long she is here. She should also work with a physical therapist. Subjective Date/time seen: 03/07/25 17:21 Interval history: Patient 59-year-old continues to complain of weakness in both lower limbs and inability to walk previously she has given the history the same symptoms started rather suddenly at 1:00 a.m. on Tuesday prior to the admission. She also has some problem the bladder and the catheter was within she is now being taken out. She has undergone MRI of the lumbosacral spine as well as thoracic and cervical spine and a besides degenerative change in the lumbar spine no other significant findings were noted. MRI of the brain was also performed which did not show any significant abnormalities. The issue regarding the weakness still on resolved. Previously it was a discussion between lumbosacral radiculopathy versus going very syndrome. The going for syndrome was a consideration in view of her other short history of development of the symptoms. Review of Systems Review of Systems: All systems reviewed & are unremarkable except as noted in HPI and below Exam Const: General: cooperative and comfortable HENMT: Head: atraumatic Eyes: Alignment and Position: alignment normal and position normal EOM: EOMs intact bilaterally Neck: Neck: normal visual inspection and supple Resp: Effort & Inspection: normal respiratory effort Skin: General skin exam: normal color Neuro: Cranial nerves: Yes CN's II-XII intact bilaterally, Yes facial symmetry and Yes Midline tongue present Cognition (Neuro): normal cognition Speech: normal speech Sensory Exam: normal sensation Coordination: [id number] test normal and Normal rapid alternating movements of the distal upper extremity present (Neuro) Extrem: General: normal to inspection Other: Examination lower limb was somewhat limited because she states that she cannot move her right foot up but she can not push Downs slightly. She was able to move left foot up and down however the strength is difficult to reliably jus in view of the poor effort. Proximal muscle testing shows see hip flexion was weak with hip extension and knee extension and flexion appear within acceptable normal range. Deep tendon reflexes are decreased at the knees and ankles. There is no definite sensory loss. Psych: Appearance: well kempt Mental Status: mental status grossly normal Speech and movement: Normal speech and movement present Affect: normal affect Thought process: Normal thought process present Thought content: Yes Normal thought content present Insight: Good insight present (Psych) Judgement: Good judgement present (Psych) Objective Data Vital Signs Vital Signs: Vital Signs - 24 hr 03/06/25 20:00 03/06/25 22:00 03/07/25 06:00 Temperature 97.7 F 97.8 F Pulse Rate 79 79 70 Respiratory Rate 14 14 14 Blood Pressure 120/53 L 132/66 Pulse Oximetry 99 99 99 Oxygen Delivery Room Air 03/07/25 08:00 03/07/25 14:00 Temperature 97.9 F Pulse Rate 78 Respiratory Rate 16 Blood Pressure 128/70 Pulse Oximetry 100 Oxygen Delivery Room Air Intake/Output Intake/Output: Intake & Output 03/04/25 03/05/25 03/06/25 03/07/25 23:59 23:59 23:59 23:59 Intake Total 625 1000 930 780 Output Total 1475 2550 3725 1050 [facility] -850 [phone] -[phone] -270 Meds/Results Medications: Active Medications Generic Name Dose Route Start Last Admin Trade Name Freq PRN Reason Stop Dose Admin Acetaminophen 650 mg 03/02/25 19:28 Acetaminophen 325 Mg Tablet PO Q4H PRN Mild Pain (1-3) or Fever Hydrocodone Bitart/Acetaminophen 1 tab 03/03/25 00:14 03/07/25 08:54 Hydrocodone/Acetaminophen (*Crx) 10-325 Mg Tablet PO 1 tab Q4H PRN Administration Pain Rated 7-10 Celecoxib 200 mg 03/03/25 21:00 03/06/25 21:31 Celecoxib 200 Mg Capsule PO 200 mg HS ARACELIS Administration Cyclobenzaprine HCl 10 mg 03/03/25 08:59 03/04/25 20:39 Cyclobenzaprine Hcl 10 Mg Tablet PO 10 mg Q8H PRN Administration Muscle Spasm Diazepam 2.5 mg 03/03/25 00:14 03/03/25 22:10 Diazepam Inj (*Crx) 10 Mg/2 Ml Syringe IV PUSH 2.5 mg Q6H PRN Administration Spasms Docusate Sodium 100 mg 03/02/25 19:28 03/07/25 12:19 Docusate Sodium 100 Mg Capsule PO 100 mg BID PRN Administration Constipation Duloxetine HCl 60 mg 03/03/25 17:00 03/07/25 08:38 Duloxetine Hcl 60 Mg Capsule.Dr PO 60 mg BID ARACELIS Administration Enoxaparin Sodium 40 mg 03/03/25 09:00 03/07/25 08:39 Enoxaparin 40 Mg/0.4 Ml Syringe SUB-Q 40 mg DAILY ARACELIS Administration Fluoxetine HCl 40 mg 03/04/25 09:00 03/07/25 08:38 Fluoxetine Hcl 20 Mg Capsule PO 40 mg DAILY ARACELIS Administration Hydrochlorothiazide 12.5 mg 03/03/25 09:00 03/07/25 08:38 Hydrochlorothiazide 12.5 Mg Capsule PO 12.5 mg QAM ARACELIS Administration Hydroxychloroquine Sulfate 200 mg 03/03/25 17:00 03/07/25 08:38 Hydroxychloroquine Sulfate 200 Mg Tablet PO 200 mg BID ARACELIS Administration Ibuprofen 400 mg 03/03/25 08:59 Ibuprofen 400 Mg Tablet PO Q6H PRN Pain Rated 4-6 Lidocaine 1 patch 03/04/25 09:00 03/07/25 08:38 Lidocaine 5% Patch TRANSDERM 1 patch DAILY ARACELIS Administration Lisinopril 20 mg 03/03/25 09:00 03/07/25 08:38 Lisinopril 20 Mg Tablet PO 20 mg QAM ARACELIS Administration Methylprednisolone 4 mg 03/05/25 06:30 03/07/25 12:21 Methylprednisolone (Medrol) Dosepack 4 Mg Tablets PO 03/10/25 07:29 4 mg 0630,1200,1700,2100 ARACELIS Administration Taper Ondansetron HCl 4 mg 03/03/25 00:14 03/03/25 00:34 Ondansetron Inj 4 Mg/2 Ml Vial IV PUSH 4 mg Q4H PRN Administration Nausea And Vomiting Pantoprazole Sodium 40 mg 03/04/25 09:00 03/07/25 08:38 Pantoprazole 40 Mg Tablet PO 40 mg QAM ARACELIS Administration Topiramate 25 mg 03/03/25 09:00 03/07/25 12:19 Topiramate 25 Mg Tablet PO 25 mg TID ARACELIS Administration Radiology Results: ITS Impressions Lumbar Spine MRI 03/02/25 16:39 IMPRESSION: Degenerative changes detailed above Head/Neck CTA 03/02/25 18:49 IMPRESSION: 1. No critical stenosis, occlusion or aneurysm is identified. Thoracic Spine MRI 03/04/25 12:31 IMPRESSION: 1. Moderate thoracic spondylosis. Cervical Spine MRI 03/05/25 18:41 IMPRESSION: 1. No acute bony lesions are cervical vertebrae. 2. Degenerative disc changes as described above at C4-5 level with bulging annulus causing mild compromise of the thecal sac and both lateral recesses. Findings at the levels are described above in detail. 3. No focal lesions of the cervical spinal cord. Brain MRI 03/05/25 19:10 IMPRESSION: 1. Limited evaluation as patient is unable to tolerate all sequences. 2. No intracranial bleed. No acute ischemia. No evidence of intracranial space occupying lesions are seen.
[2025-03-07] MEDS: CELECOXIB 200 MG CAPSULE PO (20:52)
--- NOTE | 2025-03-19 08:16 | P.TS_ITS ---
Transfer Discharge Sum: Prov Provider Date of admission: 03/02/25 18:22 Primary care physician: LEEROY COOL Admitting clinician: Werner Deras DO Consults: 03/02/25 22:31 Consult to Physician Routine Comment: spoke with Dr. Edwards @[id number](,) Consulting Provider: Aquiles Edwards [employer] fleet manager/ group to consult: Neurology Reason for consultation: Ascending weakness Has provider been notified: Yes 03/03/25 00:24 Consult to Physician Routine Comment: Consulting Provider: Ivan Rushing auto fleet manager/MD group to consult: jacklyn Reason for consultation: Ascending progressive weakness Has provider been notified: Yes 03/06/25 12:08 Consult to Physician Routine Comment: [place]1320 [place]/06 [facility] [place] Provider: Aquiles Edwards auto fleet manager/ group to consult: neurology Reason for consultation: bilateral LE weakness Has provider been notified: Yes DS: Admitting Diagnosis Discharge Date 03/07/25 Admitting Diagnosis Lower extremity tingling DS: Discharge Diagnosis Discharge Diagnosis (1) Lumbar radiculopathy: Code(s): M54.16 - Radiculopathy, lumbar region Status: Acute (2) Leg numbness: Code(s): R20.0 - Anesthesia of skin Status: Acute (3) Gastroesophageal reflux disease: Code(s): K21.9 - Gastro-esophageal reflux disease without esophagitis Status: Acute (4) Back pain: Code(s): M54.9 - Dorsalgia, unspecified Status: Acute (5) Benign essential hypertension: Code(s): I10 - Essential (primary) hypertension Status: Chronic Transfer Discharge Sum: Med Medications Active and Home Medications: Home Medications glucosamine sulfate 500 mg tablet (Glucosamine) 1,000 mg PO DAILY 11/03/20 [History Confirmed 03/02/25] clotrimazole 10 mg mami 10 mg mucous membrane .COMPLEX #90 tabs 12/10/23 [Rx Confirmed 03/02/25] fluoxetine 40 mg capsule 40 mg PO DAILY #90 caps 09/18/24 [Rx Confirmed 03/02/25] phentermine 37.5 mg tablet 37.5 mg PO DAILY #90 tabs 10/01/24 [Rx Confirmed 03/02/25] topiramate 25 mg tablet 25 mg PO TID #90 tabs 12/24/24 [Rx Confirmed 03/02/25] lisinopril 20 mg-hydrochlorothiazide 12.5 mg tablet 1 tablet PO DAILY #90 tabs 12/26/24 [Rx Confirmed 03/02/25] duloxetine 60 mg capsule,delayed release 60 mg PO BID #180 caps 01/01/25 [Rx Confirmed 03/02/25] omeprazole 40 mg capsule,delayed release 40 mg PO DAILY #90 caps 01/22/25 [Rx Confirmed 03/02/25] celecoxib 200 mg capsule 200 mg PO HS 03/02/25 [History Confirmed 03/02/25] hydroxychloroquine 200 mg tablet 200 mg PO BID 03/02/25 [History Confirmed 03/02/25] Transfer Discharge Sum: Hosp Hospital Course Hospital course: Tomasa Dukes is a 59 year old female who presented to the ED with leg weakness that started few hours prior to presentation. She stated it started in the right foot and radiated up to her leg and subsequently to her left leg. She also has low back pain however never had leg numbness before. No bowel or bladder incontinence. Due to tingling and weakness of lower extremities, she is unable to walk. Laboratory workup in ED showed sodium 134, BUN 25, glucose of 114, calcium of 8.1. CTA head and neck with no acute process. MRI lumbar spine with degenerative changes with mod-severe bilateral foramina and lateral recess stenosis with mild-moderate canal stenosis L4-5 and L-S1. Patient was given steroids once in the ER. Neurosurgery and neurology was consulted. Patient was admitted to the ICU for possible [employer] Syndrome. Weakness was asymmetric and she also had intact knee reflexes with urinary retention needing Domingo catheter placement. Bladder or bowel dysfunction at onset a sensory level are all atypical for GBS. Neurosurgeon did not feel there was any acute neurosurgical issues. Neurology recommended outpatient EMG. Since the level of numbness was around T10 umbilical level, a MRI thoracic spine was obtained which showed moderate thoracic spondylosis. MRI cervical spine showing degenerative disc changes at C4-5 level with bulging annulus causing mild compromise of the thecal sac and both lateral recesses. CTA head/neck showing no critical stenosis, occlusion or aneurysm. Brain MRI was limited but no acute findings. Medrol Dosepak added. PT/OT consulted. Spoke with Neurology and they felt this was either atypical GBS (less likely), lumbosacral radiculopathy or psychogenic (given the odd physical findings). Patient and family are wishing transfer. Discussed with patient and (with patient permission). [facility] was called and they agreed to accept the patient. Patient was transferred in stable condition. Patient Condition: Stable Time Spent with Patient Time attestation: Total time spent providing and/or coordinating transfer services:35 minutes Total time spent: Greater than 30 minutes Exam Narrative: AF 97.8 132/66 70 14 99% ra Gen - NARD Chest - CTA bilaterally CV - RRR Abd - soft, NT, ND - Domingo secured with clear yellow urine in bag Ext - no pedal edema Neuro - 2+ patellar, no AJ. no sensation from below the umbilicus. Psych - tearful at times when recounting stories Skin - warm and dry
== END 2025-03-07 21:50 | disposition short-term general hospital (02) | DRG 552 ==
LOC: ANHED 15:47 → ANH3MEDSUR 18:58 → ANH3MED 19:27 → ANHICU 03-03 00:02 → ANH3MEDSUR 03-04 15:11
PROVIDERS: Internal Medicine; Nurse Practitioner Gerontology; Admitting Provider Student in an Organized Health Care Education/Training Program; Emergency Provider Student in an Organized Health Care Education/Training Program; Visit Provider Internal Medicine
DX: M47.26 Other spondylosis with radiculopathy, lumbar region (principal); M48.061 Spinal stenosis, lumbar region without neurogenic claudication; M48.07 Spinal stenosis, lumbosacral region; K21.9 Gastro-esophageal reflux disease without esophagitis; I10 Essential (primary) hypertension; E78.5 Hyperlipidemia, unspecified; R33.8 Other retention of urine; M21.371 Foot drop, right foot; M06.9 Rheumatoid arthritis, unspecified; Z85.820 Personal history of malignant melanoma of skin; Z90.49 Acquired absence of other specified parts of digestive tract; Z90.710 Acquired absence of both cervix and uterus; Z86.718 Personal history of other venous thrombosis and embolism
CPT/HCPCS: 36415; 70496; 70498; 70551; 72141; 72146; 72148; 80048; 80053; 81001; 82607; 82746; 83605; 83735; 85025; 85652; 86140; 86593; 86703; 87641; 96374; 96375; 97110; 97162; 97167; 97530; 97535; 99285; A9270; G0432; J1100; J1650; J1885; J2270; J2405; J3360; Q9967